=== PATIENT | male | born 1970 | race Caucasian/White ===

== ENCOUNTER → 2019-11-30 08:56 | Outpatient (BNVA) | payer MEDICARE, MEDICAID, SELFPAY | PROVIDERS: Family Provider Family Medicine; PCP Family Medicine; Referring Provider Family Medicine; Visit Provider Orthopaedic Surgery | DX: M67.431 Ganglion, right wrist (principal); R22.31 Localized swelling, mass and lump, right upper limb | CPT/HCPCS: 73110 ==

== ENCOUNTER 2019-12-13 06:13 | Day surgery (SDC) | payer MEDICARE, MEDICAID, SELFPAY ==
[2019-12-11 15:30] VITALS: BMI 32.5
[2019-12-13 06:35] VITALS: BP 109/67; PULSE 80; RESP 18; TEMP 36.9; O2SAT 96
--- NOTE | 2019-12-13 06:45 | W.PM.OPSUD ---
Surgery/Procedure H&P Update DATE OF PROCEDURE: December 13, 2019 DATE H&P PERFORMED: 11/30/19 PREOP DIAGNOSIS: Mass right wrist PLANNED PROCEDURE: Operation Date: 12/13/19 07:45 Proposed Procedures p Excision Mass/Lesion Upper Extremity/Right Wrist 92737 R22.31(Right) - Calin Huynh MD
[2019-12-13] MEDS: sodium chloride 0.9% 1,000 ML 30 ML IV (06:53)
--- NOTE | 2019-12-13 06:53 | ANES.PREANE2 ---
Pre-Anesthetic Assessment Pre-Anesthetic Assessment: Height/Weight: Height 1.75 m Weight 99.79 kg Temp Pulse Resp BP Pulse Ox 98.4 F 80 18 109/67 96 12/13/19 06:35 12/13/19 06:35 12/13/19 06:35 12/13/19 06:35 12/13/19 06:35 Preop Diagnosis: Mass right wrist Proposed Procedure: Operation Date: 12/13/19 07:45 Proposed Procedures p Excision Mass/Lesion Upper Extremity/Right Wrist 97359 R22.31(Right) - Calin Huynh MD Last intake: Intake Last Liquid Date 12/12/19 Last Liquid Time 22:00 Last Solid Date 12/12/19 Last Solid Time 18:00 Social: Social History: Tobacco (quit) and No alcohol Exam: Pre-Anes Outpt Exam: alert, oriented x 3, clear to auscultation bilaterally and regular rate & rhythm Airway: Submandibular: WNL Cervical ROM: WNL MP: 2 Dentition: Other (teeth ok) History/ROS: No significant history except as noted Pulmonary: Pulmonary: None reported CV/HEM: CV/HEM: HTN : : None reported Hepatic: Hepatic: None reported GI: GI: GERD Metabolic: Metabolic: DM and Hyperlipidemia Musc/skel: Musc/skel: Lower Back Pain and OA/DJD Neuropsych: Neuropsych: Neuropathy (right hand) Anesthetic Plan: ASA status: 3 Anesthesia: Anesthesia Evaluation and MAC Risk of > 500 ml blood loss (7ml/kg in children): No Meds/Allergies Current Medications: Current Medications Generic Name Dose Route Start Last Admin Trade Name Freq PRN Reason Stop Dose Admin Sodium Chloride 1,000 mls @ 30 ml s/hr 12/13/19 06:30 12/13/19 06:53 Sodium Chloride 0.9% IV 12/14/19 06:29 30 mls/hr .Q24H NITISH Administration PFSH Anesthesia PFSH: Medical History Diabetes Dyslipidemia HTN (hypertension) Obesity HIRA (obstructive sleep apnea) Surgical History (Updated 12/07/19 @ 13:51 by Miguel A Aponte MD) S/P PTCA (percutaneous transluminal coronary angioplasty) Social History Smoking and tobacco status: former smoker Marital status: Single Data Anesthesia Cardiac Studies: No Data to Display
[2019-12-13 06:58] LABS: Glucose Point of Care 125 mg/dL (70-110)
--- NOTE | 2019-12-13 08:03 | PM.OP ---
Operative Report Date of procedure: December 13, 2019 Pre-op Diagnosis: Mass right wrist Post-op diagnosis: other Post-op Diagnosis: Ganglion cyst right volar wrist Post-op Findings: Same Procedure Done: Excision ganglion cyst right volar wrist Pathology: The ganglion was sent to pathology Surgeon: Calin Huynh Anesthesia: General Estimated blood loss (mL): 5 Tourniquet time (min): 6 Findings: Patient had a 5 mm diameter ganglion cyst just proximal to the proximal flexion crease of the wrist overlying the flexor carpi radialis tendon Condition: stable Disposition: PACU Procedure: The patient was taken to the operating room and given a general anesthesia. He was positioned on the arm table with his right arm exposed prepped and draped in the usual fashion. Tourniquet was inflated 250mmHg a 2 cm transverse lesion was made just proximal to the proximal flexion crease of the right wrist and dissection carried down bluntly through soft tissue were the ganglion was identified. It was circumferentially shelled out with blunt scissors and elevated off the flexor carpi radialis tendon. Hemostasis was provided with bipolar cautery. The tourniquet was deflated. Tendons were infiltrated with 1/2% Marcaine solution. The skin was closed with interrupted 3-0 Prolene suture. Xeroflo gauze 4 x 4's and a volar splint were applied. The patient was extubated taken to recovery in stable condition.
[2019-12-13 08:10] VITALS: BP 128/71; PULSE 70; RESP 20; TEMP 37; O2SAT 96
--- NOTE | 2019-12-13 08:12 | SUR.PHASEI ---
0810 PATIENT TO PACU AT THIS TIME. NO DISTRESS. ORAL AIRWAY IN PLACE. SPO2 94% ON RA.
--- NOTE | 2019-12-13 08:13 | SUR.PHASEI ---
0812 ORAL AIRWAY REMOVED AT THIS TIME. SPO2 96% ON RA.
[2019-12-13 08:15] VITALS: BP 126/72; PULSE 81; RESP 16; O2SAT 97
[2019-12-13 08:20] VITALS: BP 138/71; PULSE 81; RESP 20; TEMP 36.5; O2SAT 95
[2019-12-13 08:23] VITALS: BP 128/70; PULSE 80; RESP 16; TEMP 37.1; O2SAT 99
--- NOTE | 2019-12-13 08:25 | SUR.PHASEI ---
0822 PATIENT TO OPS. TALKATIVE. DENIES PAIN. SPLINT IN PLACE TO RIGHT WRIST.
[2019-12-13 08:37] VITALS: BP 135/79; PULSE 78; RESP 18; O2SAT 97
== END 2019-12-13 08:52 | disposition home or self-care (01) ==
PROVIDERS: PCP Family Medicine; Visit Provider Orthopaedic Surgery
PROC: (CPT 25111; principal; 2019-12-13 07:35)
DX: M67.431 Ganglion, right wrist (principal); Z79.82 Long term (current) use of aspirin; Z87.891 Personal history of nicotine dependence; I10 Essential (primary) hypertension; K21.9 Gastro-esophageal reflux disease without esophagitis; E78.5 Hyperlipidemia, unspecified; E11.40 Type 2 diabetes mellitus with diabetic neuropathy, unspecified; Z79.84 Long term (current) use of oral hypoglycemic drugs; M19.90 Unspecified osteoarthritis, unspecified site; G47.33 Obstructive sleep apnea (adult) (pediatric)
CPT/HCPCS: 25111; 12345; 36416; 82962; 88304; J3010; J3490; J7030

== ENCOUNTER → 2020-09-16 11:01 | Outpatient (BNVA) | payer MEDICARE, MEDICAID, SELFPAY | PROVIDERS: PCP Family Medicine; Visit Provider Psychiatry & Neurology Neurology | DX: G56.02 Carpal tunnel syndrome, left upper limb (principal); M54.2 Cervicalgia; Z87.891 Personal history of nicotine dependence | CPT/HCPCS: 95885; 95886; 95912 ==

== ENCOUNTER 2020-09-18 13:11 | Outpatient (RCR) | payer MEDICARE, MEDICAID, SELFPAY | END 2020-10-04 23:59 | disposition home or self-care (01) | LOC: SPT 13:11 | PROVIDERS: PCP Family Medicine; Referring Provider Family Medicine; Visit Provider Family Medicine | DX: M79.604 Pain in right leg (principal) | CPT/HCPCS: 97110; 97162 ==

== ENCOUNTER 2020-10-05 06:00 | Outpatient (RCR) | payer MEDICARE, MEDICAID, SELFPAY | END 2020-11-04 23:59 | disposition home or self-care (01) | LOC: SPT 06:00 | PROVIDERS: PCP Family Medicine; Referring Provider Family Medicine; Visit Provider Family Medicine | DX: M79.604 Pain in right leg (principal) | CPT/HCPCS: 97110 ==

== ENCOUNTER → 2020-12-26 08:33 | Outpatient (BNVA) | payer MEDICARE, MEDICAID, SELFPAY | PROVIDERS: PCP Family Medicine; Referring Provider Family Medicine; Visit Provider Anesthesiology Pain Medicine | DX: G89.29 Other chronic pain (principal); M51.16 Intervertebral disc disorders with radiculopathy, lumbar region; M54.2 Cervicalgia; M96.1 Postlaminectomy syndrome, not elsewhere classified; M79.605 Pain in left leg; Z98.890 Other specified postprocedural states; Z79.891 Long term (current) use of opiate analgesic | CPT/HCPCS: 99205 ==

== ENCOUNTER → 2021-01-01 13:03 | Outpatient (BNVA) | payer MEDICARE, MEDICAID, SELFPAY | PROVIDERS: PCP Family Medicine; Visit Provider Anesthesiology Pain Medicine | DX: G89.29 Other chronic pain (principal); M51.16 Intervertebral disc disorders with radiculopathy, lumbar region; E11.9 Type 2 diabetes mellitus without complications; M54.2 Cervicalgia | CPT/HCPCS: 64483; 64484; J1030; J3490 ==

== ENCOUNTER → 2021-01-16 13:08 | Outpatient (BNVA) | payer MEDICARE, MEDICAID, SELFPAY | PROVIDERS: PCP Family Medicine; Visit Provider Anesthesiology Pain Medicine | DX: G89.29 Other chronic pain (principal); M51.16 Intervertebral disc disorders with radiculopathy, lumbar region; M96.1 Postlaminectomy syndrome, not elsewhere classified; M54.2 Cervicalgia; M79.605 Pain in left leg; Z98.890 Other specified postprocedural states; Z79.891 Long term (current) use of opiate analgesic | CPT/HCPCS: 99214 ==

== ENCOUNTER → 2021-02-03 08:52 | Outpatient (BNVA) | payer MEDICARE, MEDICAID, SELFPAY | PROVIDERS: PCP Family Medicine; Visit Provider Anesthesiology Pain Medicine | DX: G89.29 Other chronic pain (principal); M51.16 Intervertebral disc disorders with radiculopathy, lumbar region; M96.1 Postlaminectomy syndrome, not elsewhere classified; M54.2 Cervicalgia; M79.605 Pain in left leg; M16.11 Unilateral primary osteoarthritis, right hip; Z98.890 Other specified postprocedural states; Z79.891 Long term (current) use of opiate analgesic | CPT/HCPCS: 99214 ==

== ENCOUNTER → 2021-02-26 10:34 | Outpatient (BNVA) | payer MEDICARE, MEDICAID, SELFPAY | PROVIDERS: PCP Family Medicine; Visit Provider Anesthesiology Pain Medicine | DX: G89.29 Other chronic pain (principal); M51.16 Intervertebral disc disorders with radiculopathy, lumbar region; M96.1 Postlaminectomy syndrome, not elsewhere classified; M54.2 Cervicalgia; M79.605 Pain in left leg; M16.11 Unilateral primary osteoarthritis, right hip; Z98.890 Other specified postprocedural states | CPT/HCPCS: 99214 ==

== ENCOUNTER → 2021-03-07 11:53 | Outpatient (BNVA) | payer MEDICARE, MEDICAID, SELFPAY | PROVIDERS: PCP Family Medicine; Visit Provider Anesthesiology Pain Medicine | DX: Z01.812 Encounter for preprocedural laboratory examination (principal); G89.29 Other chronic pain; E11.9 Type 2 diabetes mellitus without complications; M16.11 Unilateral primary osteoarthritis, right hip; M54.2 Cervicalgia; Z79.891 Long term (current) use of opiate analgesic | CPT/HCPCS: 20610; 36416; 77002; 82962; J1030; J3490 ==

== ENCOUNTER → 2021-03-20 15:24 | Outpatient (BNVA) | payer MEDICARE, MEDICAID, SELFPAY | PROVIDERS: PCP Family Medicine; Referring Provider Anesthesiology Pain Medicine; Visit Provider Specialist | DX: G62.89 Other specified polyneuropathies (principal); M96.1 Postlaminectomy syndrome, not elsewhere classified | CPT/HCPCS: 95909 ==

== ENCOUNTER → 2021-03-21 09:51 | Outpatient (BNVA) | payer MEDICARE, MEDICAID, SELFPAY | PROVIDERS: PCP Family Medicine; Visit Provider Anesthesiology Pain Medicine | DX: G89.29 Other chronic pain (principal); M51.16 Intervertebral disc disorders with radiculopathy, lumbar region; M96.1 Postlaminectomy syndrome, not elsewhere classified; M54.2 Cervicalgia; M16.11 Unilateral primary osteoarthritis, right hip; M79.605 Pain in left leg; Z98.890 Other specified postprocedural states; Z79.891 Long term (current) use of opiate analgesic | CPT/HCPCS: 99214 ==

== ENCOUNTER → 2021-04-01 09:55 | Outpatient (BNVA) | payer MEDICARE, MEDICAID, SELFPAY | PROVIDERS: PCP Family Medicine; Visit Provider Anesthesiology Pain Medicine | DX: G89.29 Other chronic pain (principal); M51.16 Intervertebral disc disorders with radiculopathy, lumbar region; M96.1 Postlaminectomy syndrome, not elsewhere classified; M54.2 Cervicalgia; M79.605 Pain in left leg; M16.11 Unilateral primary osteoarthritis, right hip; Z98.890 Other specified postprocedural states; Z79.891 Long term (current) use of opiate analgesic; Z87.891 Personal history of nicotine dependence | CPT/HCPCS: 99214 ==

== ENCOUNTER → 2021-05-12 10:30 | Outpatient (BNVA) | payer MEDICARE, MEDICAID, SELFPAY | PROVIDERS: PCP Family Medicine; Visit Provider Anesthesiology Pain Medicine | DX: G89.29 Other chronic pain (principal); M51.16 Intervertebral disc disorders with radiculopathy, lumbar region; M54.2 Cervicalgia; M96.1 Postlaminectomy syndrome, not elsewhere classified; M16.11 Unilateral primary osteoarthritis, right hip; Z98.890 Other specified postprocedural states; Z79.891 Long term (current) use of opiate analgesic | CPT/HCPCS: 99214 ==

== ENCOUNTER → 2021-06-10 09:52 | Outpatient (BNVA) | payer MEDICARE, MEDICAID, SELFPAY | PROVIDERS: PCP Family Medicine; Visit Provider Anesthesiology Pain Medicine | DX: G89.29 Other chronic pain (principal); M51.16 Intervertebral disc disorders with radiculopathy, lumbar region; M96.1 Postlaminectomy syndrome, not elsewhere classified; M54.2 Cervicalgia; M16.11 Unilateral primary osteoarthritis, right hip; M79.605 Pain in left leg; Z98.890 Other specified postprocedural states; Z79.891 Long term (current) use of opiate analgesic | CPT/HCPCS: 99214 ==

== ENCOUNTER 2021-06-25 12:59 | Outpatient (CLI) | payer MEDICARE, MEDICAID, SELFPAY ==
[2021-06-25 13:29] VITALS: BP 136/70; PULSE 85; RESP 18; TEMP 36.6; O2SAT 99; BMI 33.0
[2021-06-25 13:46] VITALS: BP 126/75; PULSE 82; RESP 16; O2SAT 98
== END 2021-06-25 13:00 | disposition home or self-care (01) ==
LOC: OPS 13:02
PROVIDERS: PCP Family Medicine; Visit Provider Nurse Practitioner Family
DX: U07.1 COVID-19 (principal)
CPT/HCPCS: 96365

== ENCOUNTER → 2021-07-17 10:28 | Outpatient (BNVA) | payer MEDICARE, MEDICAID, SELFPAY | PROVIDERS: PCP Family Medicine; Visit Provider Anesthesiology Pain Medicine | DX: G89.29 Other chronic pain (principal); M51.16 Intervertebral disc disorders with radiculopathy, lumbar region; M96.1 Postlaminectomy syndrome, not elsewhere classified; M54.2 Cervicalgia; M16.11 Unilateral primary osteoarthritis, right hip; Z98.890 Other specified postprocedural states; M79.605 Pain in left leg; Z79.891 Long term (current) use of opiate analgesic; Z87.891 Personal history of nicotine dependence | CPT/HCPCS: 99214 ==

== ENCOUNTER → 2021-08-12 09:40 | Outpatient (BNVA) | payer MEDICARE, MEDICAID, SELFPAY | PROVIDERS: PCP Family Medicine; Visit Provider Anesthesiology Pain Medicine | DX: G89.29 Other chronic pain (principal); M51.16 Intervertebral disc disorders with radiculopathy, lumbar region; M54.2 Cervicalgia; M16.11 Unilateral primary osteoarthritis, right hip; M96.1 Postlaminectomy syndrome, not elsewhere classified; M79.605 Pain in left leg; E11.9 Type 2 diabetes mellitus without complications; Z98.890 Other specified postprocedural states; Z79.891 Long term (current) use of opiate analgesic; Z87.891 Personal history of nicotine dependence | CPT/HCPCS: 99214 ==

== ENCOUNTER → 2021-11-11 09:10 | Outpatient (BNVA) | payer MEDICARE, MEDICAID, SELFPAY | PROVIDERS: PCP Family Medicine; Visit Provider Anesthesiology Pain Medicine | DX: G89.29 Other chronic pain (principal); M51.16 Intervertebral disc disorders with radiculopathy, lumbar region; M96.1 Postlaminectomy syndrome, not elsewhere classified; M54.2 Cervicalgia; M16.11 Unilateral primary osteoarthritis, right hip; M79.605 Pain in left leg; Z98.890 Other specified postprocedural states; Z79.891 Long term (current) use of opiate analgesic; Z87.891 Personal history of nicotine dependence | CPT/HCPCS: 99214 ==

== ENCOUNTER → 2021-11-24 13:41 | Outpatient (BNVA) | payer MEDICARE, MEDICAID, SELFPAY | PROVIDERS: PCP Family Medicine; Visit Provider Anesthesiology Pain Medicine | DX: G89.29 Other chronic pain (principal); M54.2 Cervicalgia; M54.50 Low back pain, unspecified; E11.9 Type 2 diabetes mellitus without complications; Z79.891 Long term (current) use of opiate analgesic; Z87.891 Personal history of nicotine dependence; Z79.4 Long term (current) use of insulin; Z79.84 Long term (current) use of oral hypoglycemic drugs; M53.3 Sacrococcygeal disorders, not elsewhere classified | CPT/HCPCS: 36416; 82962; G0260; J1030; J3490 ==

== ENCOUNTER 2021-12-01 06:00 | Outpatient (RCR) | payer MEDICARE, MEDICAID, SELFPAY | END 2021-12-04 23:59 | disposition home or self-care (01) | LOC: SPT 06:00 | PROVIDERS: PCP Family Medicine; Referring Provider Nurse Practitioner Acute Care; Visit Provider Nurse Practitioner Acute Care | DX: M79.604 Pain in right leg (principal) | CPT/HCPCS: 97110; 97162 ==

== ENCOUNTER 2021-12-05 06:00 | Outpatient (RCR) | payer MEDICARE, MEDICAID, SELFPAY | END 2022-01-04 23:59 | disposition home or self-care (01) | LOC: SPT 06:00 | PROVIDERS: PCP Family Medicine; Referring Provider Nurse Practitioner Acute Care; Visit Provider Nurse Practitioner Acute Care | DX: M53.3 Sacrococcygeal disorders, not elsewhere classified (principal); M51.37 Other intervertebral disc degeneration, lumbosacral region | CPT/HCPCS: 97110 ==

== ENCOUNTER → 2021-12-09 13:46 | Outpatient (BNVA) | payer MEDICARE, MEDICAID, SELFPAY | PROVIDERS: PCP Family Medicine; Visit Provider Internal Medicine | DX: I10 Essential (primary) hypertension (principal); E78.5 Hyperlipidemia, unspecified; Z98.61 Coronary angioplasty status; R06.02 Shortness of breath; R53.83 Other fatigue; Z87.891 Personal history of nicotine dependence; Z79.84 Long term (current) use of oral hypoglycemic drugs; E11.9 Type 2 diabetes mellitus without complications; Z79.4 Long term (current) use of insulin | CPT/HCPCS: 99214 ==

== ENCOUNTER → 2021-12-15 10:45 | Outpatient (BNVA) | payer MEDICARE, MEDICAID, SELFPAY | PROVIDERS: PCP Family Medicine; Visit Provider Anesthesiology Pain Medicine | DX: G89.29 Other chronic pain (principal); M51.16 Intervertebral disc disorders with radiculopathy, lumbar region; M96.1 Postlaminectomy syndrome, not elsewhere classified; M54.2 Cervicalgia; M16.11 Unilateral primary osteoarthritis, right hip; M79.605 Pain in left leg; Z98.890 Other specified postprocedural states; Z79.891 Long term (current) use of opiate analgesic | CPT/HCPCS: 99214 ==

== ENCOUNTER 2021-12-19 15:13 | Emergency (ER) | payer MEDICARE, MEDICAID, SELFPAY ==
--- NOTE | 2021-12-19 16:10 | ECG_ITS ---
[facility] Test Date: 2021-12-19 Pat Name: Farshad Cruz Department: Room: Gender: Male [employer]: : 1970 Requested By: Cesar Dior Order Number: [id number] Eduardo MD: William Wilks M.D. Measurements Intervals [place] Rate: 73 P: 59 GA: 188 QRS: 28 QRSD: 76 T: 19 QT: 336 QTc: 371 Interpretive Statements SINUS RHYTHM POSSIBLE LEFT ATRIAL ENLARGEMENT [-0.1mV P-WAVE IN V1/V2] Compared to ECG 12/07/2017 06:23:12 No significant changes Electronically Signed On 12-22-2021 17:56:48 CDT by William Wilks M.D. [id number]
[2021-12-19 16:12] VITALS: BP 132/83; PULSE 74; RESP 16; TEMP 36.6; O2SAT 99
--- NOTE | 2021-12-19 23:14 | XRR_ITS ---
PROCEDURE INFORMATION: Exam: XR Chest Exam date and time: 12/19/2021 11:27 PM Age: 51 years old Clinical indication: Pain; Angina pectoris; Additional info: Cp TECHNIQUE: Imaging protocol: Radiologic exam of the chest. Views: 1 view. COMPARISON: CR Chest 1 [place] [id number] 12/06/2017 5:32 AM FINDINGS: Lungs: Unremarkable. No consolidation. Pleural spaces: Unremarkable. No pleural effusion. No pneumothorax. Heart/Mediastinum: Unremarkable. No cardiomegaly. Bones/joints: Unremarkable. XR/XR chest 1V portable [id number] IMPRESSION: No acute findings.
--- NOTE | 2021-12-19 23:15 | ECG_ITS ---
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 Measurements Intervals [place] Rate: 77 P: 53 NM: 181 QRS: 22 QRSD: 84 T: 8 QT: 352 QTc: 400 Interpretive Statements SINUS RHYTHM POSSIBLE LEFT ATRIAL ENLARGEMENT [-0.1mV P-WAVE IN V1/V2] Compared to ECG 12/19/2021 16:10:40 No significant changes Electronically Signed On 12-22-2021 17:55:06 CDT by William Wilks M.D. [id number]
--- NOTE | 2021-12-19 23:16 | ED_ITS ---
Documented by User: JEFFERY Rajput 12/21/21 00:52 HPI - Chest Pain General: Chief Complaint: Chest Pain Stated Complaint: Throat pain Time Seen by Provider: 12/19/21 22:58 History of Present Illness: Patient is a 51-year-old male comes to the ED with anterior neck pain. Patient has a history of a cardiac stent. He says the neck pain he is feeling right now is similar to the neck pain he had with his past heart attack when he needed to place a cardiac stent. He describes it as a tightness in his neck and throat. Denies any lip or tongue swelling or any trouble breathing. Symptoms started while at rest yesterday and have been constant. Denies any injury or trauma to cause neck pain. Denies fever, chills, shortness of breath, abdominal pain, nausea/vomiting, bladder or bowel symptoms. Patient takes 325 mg aspirin daily at night, but has not taken his dose of aspirin today. Associated symptoms: Deny abdominal pain, dyspnea, fever(s), nausea, palpitations or vomiting Review of Systems Const: Denies: fever(s), chills or fatigue Eyes: Denies: change in vision or eye discomfort ENMT: Denies: throat pain, odynophagia, nasal discharge or nasal congestion Card: Reports: chest pain (pain radiating into anterior neck); Denies: palpitations, edema, swelling of feet/ankles, dyspnea on exertion or orthopnea Resp: Denies: dyspnea, productive cough or non-productive cough GI: Denies: abdominal pain, nausea, vomiting, diarrhea, constipation or hematochezia : Denies: flank pain, difficulty urinating, dysuria or hematuria Musc: Denies: neck pain, back pain or extremity swelling Skin/Breast: Denies: rash or new lesions Neuro: Denies: headache(s), numbness in extremities or weakness in extremities PFS ED PFSH: Medical History Diabetes Dyslipidemia HTN (hypertension) Obesity HIRA (obstructive sleep apnea) Surgical History Previous back surgery total of 6 back surgeries S/P PTCA (percutaneous transluminal coronary angioplasty) Social History Smoking and tobacco status: former smoker Second hand smoke exposure: Yes Alcohol intake: never Marital status: Single History of recent travel: No Physical Exam Const: COMMON NORMALS: no acute distress, patient oriented x3 and alert GENERAL APPEARANCE: cooperative and comfortable HENMT: COMMON NORMALS: normocephalic HEAD & SCALP: normocephalic MOUTH: Normal oral and palatal mucosa present THROAT: posterior oropharynx normal and uvula midline Neck/C-Spine: COMMON NORMALS: supple GENERAL: Yes normal visual inspection Resp: COMMON NORMALS: normal respiratory effort, No retractions, No use of accessory muscles and clear to auscultation bilaterally AUSCULTATION: clear to auscultation bilaterally Cardio: COMMON NORMALS: regular rate, regular rhythm, S1 normal heart sound present, S2 normal heart sound present, No gallops present (Cardio), No clicks present (Cardio), No murmurs present (Cardio) and Peripheral pulses 2+ throughout RATE: regular rate RHYTHM: regular rhythm HEART SOUNDS: S1 normal heart sound present and S2 normal heart sound present PERIPHERAL PULSES: Peripheral pulses 2+ throughout GI: COMMON NORMALS: Normal to inspection, nondistended, normoactive bowel sounds present, Soft to palpation, non-tender and no masses PALPATION: Yes Soft to palpation : COMMON NORMALS: Yes no CVA tenderness BLADDER/KIDNEY EXAM: Yes no CVA tenderness Back/Pelvis: COMMON NORMALS: no CVA tenderness Extremity: COMMON NORMALS: normal to inspection Neuro: COMMON NORMALS: patient oriented x3 and moves all extremities SENSORIUM/ORIENTATION: Yes alert Skin: GENERAL SKIN EXAM: dry skin Course Vital Signs: Vital signs: Vital Signs Temperature 97.8 F 12/19/21 16:12 Pulse Rate 71 12/20/21 02:38 Respiratory Rate 17 12/19/21 23:45 Blood Pressure 155/90 12/20/21 02:38 Pulse Oximetry 95 12/20/21 02:38 MDM - Chest Pain Medical Decision Making Patient is a 51-year-old male comes to the ED with anterior neck pain. Patient has a history of a cardiac stent. He says the neck pain he is feeling right now is similar to the neck pain he had with his past heart attack when he needed to place a cardiac stent. He describes it as a tightness in his neck and throat. Denies any lip or tongue swelling or any trouble breathing. Symptoms started while at rest yesterday and have been constant. Denies any injury or trauma to cause neck pain. Vitals stable. Patient appears nontoxic in no acute distress or pain. Labs are unremarkable. Troponins negative. EKG showed no acute findi ngs. Chest x-ray showed no acute findings. Patient was given dose of steroids and GI cocktail and symptoms improved. Patient was diagnosed with atypical chest pain and was stable for discharge home. Told to follow-up with his PCP in the next week for reevaluation. Strict return ED precautions given. Patient understood and agreed with plan. Lab Data I reviewed the patient's lab results. : 12/19/21 23:24 12/19/21 23:24 Radiology Impressions Chest X-Ray 12/19/21: IMPRESSION: No acute findings. Laboratory Results WBC 6.4 10^3/uL (4.0-10.0) 12/19/21 23: RBC 5.31 10^6/uL (4.1-5.3) H 12/19/21 23: Hgb 15.6 g/dL (11.7-16.6) 12/19/21 23: Hct 45.8 % (42.0-52.0) 12/19/21 23: MCV 86.3 fl (80-94) 12/19/21 23: MCH 29.4 pg (28.0-34.0) 12/19/21 23: MCHC 34.1 g/dL (30.0-36.0) 12/19/21 23: RDW 13.2 % (12.1-15.1) 12/19/21: Plt Count 189 10^3/cmm (130-400) 12/19/21 23:24 MPV 11.0 fL (7.4-10.4) H 12/19/21 23: Neut % (Auto) 66.9 % 12/19/21 23: Lymph % (Auto) 21.6 % 12/19/21 23: [place] % (Auto) 7.4 % 12/19/21 23: Eos % (Auto) 3.1 % 12/19/21: Baso % (Auto) 0.8 % 12/19/21: Neut # (Auto) 4.27 10^3/uL (1.8-7.7) 12/19/21 23:24 Lymph # (Auto) 1.4 10^3/uL (0.8-4.8) 12/19/21 23:24 [place] # (Auto) 0.5 10^3/uL (0.2-0.9) 12/19/21 23:24 Eos # (Auto) 0.2 10^3/uL (0.0-0.8) 12/19/21 23:24 Baso # (Auto) 0.1 10^3/uL (0.0-0.1) 12/19/21 23:24 Nucleated RBC % (auto) 0 % 12/19/21 23:24 Nucleated RBCs # 0.0 /100WBC 12/19/21 23:24 Sodium 139 mmol/L (136-145) 12/19/21 23:24 Potassium 4.0 mmol/L (3.5-5.1) 12/19/21 23:24 Chloride 99 mmol/L (98-107) 12/19/21 23:24 Carbon Dioxide 28 mmol/L (22-29) 12/19/21 23:24 Anion Gap 16.0 (5-19) 12/19/21 23:24 BUN 12 mg/dL (6-20) 12/19/21 23:24 Creatinine 0.6 mg/dL (0.7-1.2) L 12/19/21 23:24 GFR Calculation 142.6 mL/min (90-130) H 12/19/21 23:24 Glucose 104 mg/dL (65-115) 12/19/21 23:24 Calculated Osmolality 288 mOsm/kg (285-295) 12/19/21 23:24 Calcium 9.8 mg/dL (8.5-10.5) 12/19/21 23:24 Total Bilirubin 0.5 mg/dL (0.15-1.2) 12/19/21 23:24 AST 28 U/L (0-40) 12/19/21 23:24 ALT 60 U/L (0-41) H 12/19/21 23:24 Alkaline Phosphatase 70 IU/L (40-130) 12/19/21 23:24 Troponin T Baseline 10 ng/L (0-15) 12/19/21 23:24 Troponin T 120 Minute 11.31 ng/L (0-15) 12/20/21 01:14 Delta Troponin T 1.31 ABS# (0-10) 12/20/21 01:14 NT-Pro-B Natriuret Pep 11 pg/mL (0-125) 12/19/21 23:24 Total Protein 7.8 g/dL (6.6-8.7) 12/19/21 23:24 Albumin 5.0 g/dL (3.5-5.2) 12/19/21 23:24 Globulin 2.8 g/dL (1.3-4.6) 12/19/21 23:24 EKG Data EKG 1: Computer generated interpretation: [address] [place] [address] Electrocardiograph Report Draft Patient: Farshad Cruz Unit #: [id number] : 1970 Age/Sex: 51 / M ADM Date: 12/19/21 Loc: ER Room/Bed: Attending Dr: Ordering Provider/Ordering MD: Cesar Dior DO Date of Service: 12/19/21 Procedure(s): ECG 12 lead EKG Accession Number(s): [id number] Report Number: [id number] ? [facility] ? Test Date:? ? 2021-12-19 Pat Name: ? ? Farshad Cruz ? Department: ? Patient ID: ? [id number] ? Room: ? Gender: ? ? ? Male ? 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 Requested By: Cesar Dior Order Number: [id number]? Reading MD: ? Measurements Intervals? Beatrice? Rate: ? 73 ? P:? 59 TN: ? 188? QRS:? 28 QRSD: ? 76 ? T:? 19 QT: ? 336? QTc:? 371? Interpretive Statements SINUS RHYTHM POSSIBLE LEFT ATRIAL ENLARGEMENT? [-0.1mV P-WAVE IN V1/V2] No previous ECG available for comparison [email or web address] [id number] Dictated By: INTERFACE,USER Signed By: Signed Date/Time: DD/ 1610 EKG 2: Computer generated interpretation: [employer] [address] [place] [address] Electrocardiograph Report Draft Patient: Farshad Cruz Unit #: [id number] : 1970 Age/Sex: 51 / M ADM Date: 12/19/21 Loc: ER Room/Bed: Attending Dr: Ordering Provider/Ordering MD: Felice Pond Date of Service: 12/19/21 Procedure(s): ECG 12 lead EKG Accession Number(s): [id number] Report Number: [id number] ? [facility] ? Test Date:? ? 2021-12-19 Pat Name: ? ? aFrshad Cruz ? Department: ? Patient ID: ? [id number] ? Room: ? Gender: ? ? ? Male ? 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 Requested By: Felice Pond Order Number: [id number]? Reading MD: ? Measurements Intervals? Beatrice? Rate: ? 77 ? P:? 53 TN: ? 181? QRS:? 22 QRSD: ? 84 ? T:? 8 QT: ? 352? QTc:? 400? Interpretive Statements SINUS RHYTHM POSSIBLE LEFT ATRIAL ENLARGEMENT? [-0.1mV P-WAVE IN V1/V2] INTERPRETATION BASED ON A DEFAULT AGE OF 40 YEARS No previous ECG available for comparison [email or web address] Dictated By: INTERFACE,USER Signed By: Signed Date/Time DD/ 08 Discharge Plan Discharge Patient Disposition: Home Clinical Impression: Atypical chest pain Condition: Stable Prescriptions: No Action Ozempic 1 mg/dose (2 mg/1.5 mL) pen injector See Rx Instructions .ROUTE .COMPLEX 0RF Rx Instructions: 2 mg subcutaneously WEEKLY Tradjenta 5 mg tablet 5 mg PO DAILY 0RF metoprolol succinate 50 mg tablet extended release 24 hr 25 mg PO DAILY 0RF fluticasone propionate [Flonase Allergy Relief] 50 mcg/actuation spra y,suspension 1 spray INTRANASAL DAILY 0RF Rx Instructions: administer into each nostril esomeprazole magnesium [Nexium] 40 mg capsule,delayed release(DR/EC) 40 mg PO BID 0RF cinnamon bark [Cinnamon] 500 mg capsule 1,000 mg PO BID 0RF metformin 1,000 mg tablet 1,000 mg PO BID 0RF pregabalin [Lyrica] 75 mg capsule 75 mg PO BID 0RF nortriptyline 10 mg capsule 20 mg PO DAILY 0RF lisinopril-hydrochlorothiazide 20-25 mg tablet 1 tab PO DAILY 0RF aspirin 325 mg tablet 325 mg PO DAILY 0RF Farxiga 10 mg tablet 10 mg PO DAILY 0RF tizanidine 2 mg capsule 4 mg PO BID PRN (Reason: Pain) 0RF cyanocobalamin (vitamin B-12) 1,000 mcg capsule 1,000 mcg PO DAILY 0RF B-complex with vitamin C [Super B Complex-Vitamin C] Tablet 1 tab PO DAILY 0RF ascorbic acid (vitamin C) 1,000 mg tablet 500 mg PO DAILY 0RF ICaps AREDS2 (copper citrate) 250 mg-200 unit -12.5 mg-1 mg tablet,chewable 1 tab PO DAILY 0RF ibuprofen 200 mg tablet 200 mg PO .4 tabs day PRN (Reason: pain) 0RF Toujeo SoloStar U-300 Insulin 300 unit/mL (1.5 mL) insulin pen 42 unit SUBCUT DAILY 0RF Toujeo SoloStar U-300 Insulin 300 unit/mL (1.5 mL) insulin pen 38 unit SUBCUT DAILY 0RF melatonin 10 mg capsule 10 mg PO DAILY 0RF hydrocodone-acetaminophen 5-325 mg tablet 1 tab PO Q8H MDD 3 PRN (Reason: pain) 30 Days Qty: 90 0RF Rx Instructions: may fill 30 days after last refill. atorvastatin 80 mg tablet 80 mg PO DAILY Qty: 90 3RF Discharge Orders: Discharge ED (Routine); Ordered 12/20/21 Ordered By: Felice Pond Referrals: Cyrus Covarrubias MD [Primary Care Provider] - Discharge Diet: Regular Discharge Activity: Increase activity as tolerated Activity Restrictions/Additional Instructions: Follow-up with medical provider as directed in the next 5 to 7 days for reevaluation. Continue taking home medications as previously prescribed.. Return to the ER or your medical provider if condition worsens. Please read and understand discharge instructions. Thank you for choosing [facility] for your healthcare needs today. Please realize this is an emergency room and that we are providing you with a medical screening exam and this may not be complete and all inclusive of all the testing and or work up that you may need to determine your ailment or severity of your illness. It is very important that you follow up as instructed or that you return to the Emergency Department should you have concerns or if your condition changes or worsens in any way. Coding Level of Care Code ED Scientific Photographer for Chg Fwd Exam Comprehensive Documented by User: Kwesi Aguilera DO 12/21/21 02:10 HPI - Chest Pain General: Chief Complaint: Chest Pain Stated Complaint: Throat pain Time Seen by Provider: 12/19/21 22:58 PFS ED PFSH: Medical History Diabetes Dyslipidemia HTN (hypertension) Obesity HIRA (obstructive sleep apnea) Surgical History Previous back surgery total of 6 back surgeries S/P PTCA (percutaneous transluminal coronary angioplasty) Social History Smoking and tobacco status: former smoker Second hand smoke exposure: Yes Alcohol intake: never Marital status: Single History of recent travel: No Course Vital Signs: Vital signs: Vital Signs Temperature 97.8 F 12/19/21 16:12 Pulse Rate 71 12/20/21 02:38 Respiratory Rate 17 12/19/21 23:45 Blood Pressure 155/90 12/20/21 02:38 Pulse Oximetry 95 12/20/21 02:38 MDM - Chest Pain Medical Decision Making Patient is a 51-year-old male comes to the ED with anterior neck pain. Patient has a history of a cardiac stent. He says the neck pain he is feeling right now is similar to the neck pain he had with his past heart attack when he needed to place a cardiac stent. He describes it as a tightness in his neck and throat. Denies any lip or tongue swelling or any trouble breathing. Symptoms started while at rest yesterday and have been constant. Denies any injury or trauma to cause neck pain. Vitals stable. Patient appears nontoxic in no acute distress or pain. Labs are unremarkable. Troponins negative. EKG showed no acute findings. Chest x-ray showed no acute findings. Patient was given dose of steroids and GI cocktail and symptoms improved. Patient was diagnosed with atypical chest pain and was stable for discharge home. Told to follow-up with his PCP in the next week for reevaluation. Strict return ED precautions given. Patient understood and agreed with plan. This patient was originally seen by Mr. Salty PA-C.? I agree with his history, evaluation, and treatment. Lab Data : 12/19/21 23:24 12/19/21 23:24 Radiology Impressions Chest X-Ray 12/19/21 23: IMPRESSION: No acute findings. Laboratory Results WBC 6.4 10^3/uL (4.0-10.0) 12/19/21 23: RBC 5.31 10^6/uL (4.1-5.3) H 12/19/21 23:24 Hgb 15.6 g/dL (11.7-16.6) 12/19/21 23:24 Hct 45.8 % (42.0-52.0) 12/19/21 23: MCV 86.3 fl (80-94) 12/19/21 23:24 MCH 29.4 pg (28.0-34.0) 12/19/21 23: MCHC 34.1 g/dL (30.0-36.0) 12/19/21 23: RDW 13.2 % (12.1-15.1) 12/19/21 23: Plt Count 189 10^3/cmm (130-400) 12/19/21 23:24 MPV 11.0 fL (7.4-10.4) H 12/19/21 23:24 Neut % (Auto) 66.9 % 12/19/21 23: Lymph % (Auto) 21.6 % 12/19/21 23:24 [place] % (Auto) 7.4 % 12/19/21 23:24 Eos % (Auto) 3.1 % 12/19/21 23: Baso % (Auto) 0.8 % 07/15/22 23:24 Neut # (Auto) 4.27 10^3/uL (1.8-7.7) 12/19/21 23:24 Lymph # (Auto) 1.4 10^3/uL (0.8-4.8) 12/19/21 23:24 [place] # (Auto) 0.5 10^3/uL (0.2-0.9) 12/19/21 23:24 Eos # (Auto) 0.2 10^3/uL (0.0-0.8) 12/19/21 23:24 Baso # (Auto) 0.1 10^3/uL (0.0-0.1) 12/19/21 23:24 Nucleated RBC % (auto) 0 % 12/19/21 23: Nucleated RBCs # 0.0 /100WBC 12/19/21 23:24 Sodium 139 mmol/L (136-145) 12/19/21 23:24 Potassium 4.0 mmol/L (3.5-5.1) 12/19/21 23:24 Chloride 99 mmol/L (98-107) 12/19/21 23:24 Carbon Dioxide 28 mmol/L (22-29) 12/19/21 23:24 Anion Gap 16.0 (5-19) 12/19/21 23:24 BUN 12 mg/dL (6-20) 12/19/21 23:24 Creatinine 0.6 mg/dL (0.7-1.2) L 12/19/21 23:24 GFR Calculation 142.6 mL/min (90-130) H 12/19/21 23:24 Glucose 104 mg/dL (65-115) 12/19/21 23:24 Calculated Osmolality 288 mOsm/kg (285-295) 12/19/21 23:24 Calcium 9.8 mg/dL (8.5-10.5) 12/19/21 23:24 Total Bilirubin 0.5 mg/dL (0.15-1.2) 12/19/21 23:24 AST 28 U/L (0-40) 12/19/21 23:24 ALT 60 U/L (0-41) H 12/19/21 23:24 Alkaline Phosphatase 70 IU/L (40-130) 12/19/21 23:24 Troponin T Baseline 10 ng/L (0-15) 12/19/21 23:24 Troponin T 120 Minute 11.31 ng/L (0-15) 12/20/21 01:14 Delta Troponin T 1.31 ABS# (0-10) 12/20/21 01:14 NT-Pro-B Natriuret Pep 11 pg/mL (0-125) 12/19/21 23:24 Total Protein 7.8 g/dL (6.6-8.7) 12/19/21 23:24 Albumin 5.0 g/dL (3.5-5.2) 12/19/21 23:24 Globulin 2.8 g/dL (1.3-4.6) 12/19/21 23:24 Discharge Plan Discharge Patient Disposition: Home Clinical Impression: Atypical chest pain Condition: Stable Prescriptions: No Action Ozempic 1 mg/dose (2 mg/1.5 mL) pen injector See Rx Instructions .ROUTE .COMPLEX 0RF Rx Instructions: 2 mg subcutaneously WEEKLY Tradjenta 5 mg tablet 5 mg PO DAILY 0RF metoprolol succinate 50 mg tablet extended release 24 hr 25 mg PO DAILY 0RF fluticasone propionate [Flonase Allergy Relief] 50 mcg/actuation spray,suspension 1 spray INTRANASAL DAILY 0RF Rx Instructions: administer into each nostril esomeprazole magnesium [Nexium] 40 mg capsule,delayed release(DR/EC) 40 mg PO BID 0RF cinnamon bark [Cinnamon] 500 mg capsule 1,000 mg PO BID 0RF metformin 1,000 mg tablet 1,000 mg PO BID 0RF pregabalin [Lyrica] 75 mg capsule 75 mg PO BID 0RF nortriptyline 10 mg capsule 20 mg PO DAILY 0RF lisinopril-hydrochlorothiazide 20-25 mg tablet 1 tab PO DAILY 0RF aspirin 325 mg tablet 325 mg PO DAILY 0RF Farxiga 10 mg tablet 10 mg PO DAILY 0RF tizanidine 2 mg capsule 4 mg PO BID PRN (Reason: Pain) 0RF cyanocobalamin (vitamin B-12) 1,000 mcg capsule 1,000 mcg PO DAILY 0RF B-complex with vitamin C [Super B Complex-Vitamin C] Tablet 1 tab PO DAILY 0RF ascorbic acid (vitamin C) 1,000 mg tablet 500 mg PO DAILY 0RF ICaps AREDS2 (copper citrate) 250 mg-200 unit -12.5 mg-1 mg tablet,chewable 1 tab PO DAILY 0RF ibuprofen 200 mg tablet 200 mg PO .4 tabs day PRN (Reason: pain) 0RF Toujeo SoloStar U-300 Insulin 300 unit/mL (1.5 mL) insulin pen 42 unit SUBCUT DAILY 0RF Toujeo SoloStar U-300 Insulin 300 unit/mL (1.5 mL) insulin pen 38 unit SUBCUT DAILY 0RF melatonin 10 mg capsule 10 mg PO DAILY 0RF hydrocodone-acetaminophen 5-325 mg tablet 1 tab PO Q8H MDD 3 PRN (Reason: pain) 30 Days Qty: 90 0RF Rx Instructions: may fill 30 days after last refill. atorvastatin 80 mg tablet 80 mg PO DAILY Qty: 90 3RF Discharge Orders: Discharge ED (Routine); Ordered 12/20/21 Ordered By: Felice Pond Referrals: Cyrus Covarrubias MD [Primary Care Provider] - Discharge Diet: Regular Discharge Activity: Increase activity as tolerated Activity Restrictions/Additional Instructions: Follow-up with medical provider as directed in the next 5 to 7 days for reevaluation. Continue taking home medications as previously prescribed.. Return to the ER or your medical provider if condition worsens. Please read and understand discharge instructions. Thank you for choosing [facility] for your healthcare needs today. Edin aldrich realize this is an emergency room and that we are providing you with a medical screening exam and this may not be complete and all inclusive of all the testing and or work up that you may need to determine your ailment or severity of your illness. It is very important that you follow up as instructed or that you return to the Emergency Department should you have concerns or if your condition changes or worsens in any way. Coding Level of Care Code ED Scientific Photographer for Rupa Fwjesse Exam Comprehensive
[2021-12-19 23:31] LABS: Basophils # 0.1 10^3/uL (0.0-0.1); Basophils % 0.8 %; Eosinophils # 0.2 10^3/uL (0.0-0.8); Eosinophils % 3.1 %; Hematocrit 45.8 % (42.0-52.0); Hemoglobin 15.6 g/dL (11.7-16.6); Lymphocytes # 1.4 10^3/uL (0.8-4.8); Lymphocytes % 21.6 %; Mean Corpuscular HGB Conc 34.1 g/dL (30.0-36.0); Mean Corpuscular Hemoglobin 29.4 pg (28.0-34.0); Mean Corpuscular Volume 86.3 fl (80-94); Monocytes # 0.5 10^3/uL (0.2-0.9); Monocytes % 7.4 %; Neutrophils # 4.27 10^3/uL (1.8-7.7); Neutrophils % 66.9 %; Nucleated Red Blood Cells % 0 %; Platelet Count 189 10^3/cmm (130-400); Red Blood Count 5.31 10^6/uL (4.1-5.3); Red Cell Distribution Width 13.2 % (12.1-15.1); White Blood Count 6.4 10^3/uL (4.0-10.0)
[2021-12-19] MEDS: aspirin 81 mg Chew Tablet 324 MG PO (23:36)
[2021-12-19 23:45] VITALS: BP 141/86; PULSE 90; RESP 17; O2SAT 96
[2021-12-19 23:59] LABS: Troponin(5th) Baseline 10 ng/L (0-15)
[2021-12-20 00:05] LABS: Alanine Aminotransferase 60 U/L (0-41); Alkaline Phosphatase 70 IU/L (40-130); Aspartate Amino Transferase 28 U/L (0-40); Blood Urea Nitrogen 12 mg/dL (6-20); Calcium 9.8 mg/dL (8.5-10.5); Carbon Dioxide 28 mmol/L (22-29); Chloride 99 mmol/L (98-107); Globulin 2.8 g/dL (1.3-4.6); Glomerular Filtration Rate 142.6 mL/min (90-130); Glucose 104 mg/dL (65-115); NT Pro B Type Natriuretic Pept 11 pg/mL (0-125); Osmolality Calculated 288 mOsm/kg (285-295); Sodium 139 mmol/L (136-145); Total Bilirubin 0.5 mg/dL (0.15-1.2); Total Protein 7.8 g/dL (6.6-8.7)
--- NOTE | 2021-12-20 01:15 | ECG_ITS ---
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 Measurements Intervals [place] Rate: 72 P: 50 NE: 174 QRS: 40 QRSD: 95 T: 16 QT: 369 QTc: 406 Interpretive Statements SINUS RHYTHM Compared to ECG 12/19/2021 23:09:42 No significant changes Electronically Signed On 12-22-2021 18:18:35 CDT by William Wilks M.D. [id number]
[2021-12-20 01:58] LABS: Troponin 5 2HR 11.31 ng/L (0-15)
[2021-12-20 02:18] LABS: Troponin 5 2HR Delta 1.31 ABS# (0-10)
[2021-12-20] MEDS: lidocaine 2% viscous 15 ML, aluminum-mag hydrox-simethicon 30 ML, sucralfate oral liq 1 GM PO (02:23)
[2021-12-20 02:38] VITALS: BP 155/90; PULSE 71; O2SAT 95
== END 2021-12-20 02:39 | disposition home or self-care (01) ==
PROVIDERS: Emergency Provider Physician Assistant; PCP Family Medicine
DX: R07.89 Other chest pain (principal); Z79.84 Long term (current) use of oral hypoglycemic drugs; Z79.82 Long term (current) use of aspirin; Z79.4 Long term (current) use of insulin; E11.9 Type 2 diabetes mellitus without complications; E78.5 Hyperlipidemia, unspecified; I10 Essential (primary) hypertension; Z87.891 Personal history of nicotine dependence
CPT/HCPCS: 71045; 80053; 83880; 84484; 85025; 93005; 96374; 99285; J2930

== ENCOUNTER 2021-12-30 06:51 | Outpatient (CLI) | payer MEDICARE, MEDICAID, SELFPAY ==
[2021-12-30 06:59] VITALS: BMI 32.8
--- NOTE | 2021-12-30 07:02 | ECG_ITS ---
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 Interpretive Statements NAME OF STUDY: LEXISCAN SESTAMIBI STRESS TEST INDICATION: [Shortness of Breath, ] Procedure: At the baseline, the blood pressure was 131/75 mmHg with a heart rate of 79 bpm. The electrocardiogram showed normal sinus rhythm, normal axis with normal ST and T's. The Lexiscan was infused over a period of 20 seconds. A total of 0.4 mg of Lexiscan was infused. The stress phase was continued for a total of 5 minutes. Heart rate was at the end of stress phase was 97 bpm and a blood pressure of 132/66 mmHg. The EKG at the peak infusion revealed since normal sinus rhythm with no significant ST-T wave changes. Sestamibi was injected 20 seconds after the Lexiscan infusion. Blood pressure at the end of recovery phase was 134/65 mmHg with a heart rate of 94 bpm. PVCs were noted in recovery phase. Conclusion: 1. Normal EKG response to Lexiscan infusion 2. No Lexiscan induced chest pain or cardiac arrhythmia. 3. Normal blood pressure and heart rate response. 4. Sestamibi/sestamibi perfusion scan pending; see separate report. Electronically Signed On 12-30-2021 12:31:42 CDT by William Wilks M.D. [id number]
--- NOTE | 2021-12-30 07:02 | NMCV_ITS ---
NM priti perf SPECT r/s* [id number] Farshad Cruz Age: 51 Gender: M : 1970 Exam Date: 12/30/2021 07:58 Ordering Phys: William Wilks M.D ([email or web address]) Technologist: BILLIE Barron Exam Location: [facility] Indications: SHORTNESS OF BREATH STRESS TEST Please [facility] IMAGE PROTOCOL Rest/Stress 1 Lexiscan Day Radiopharmaceutical Dose (mCi) Administration Site Administered by Rest: Tc-99m 10.6 IV BILLIE Figueroa Sestamibi Stress:Tc-99m 32.8 IV BILLIE Figueroa Sestamibi Rest: 30-Dec-2021 60 Discovery 630 Stress: 30-Dec-2021 30 Discovery 630 0.4mg Lexiscan. Images obtained in supine and prone position. SPECT RESULTS Technical Quality: Excellent Raw Data Analysis: Normal Image Corrections: No attenuation or motion correction applied Summed Stress Score: 4 Summed Rest Score: 0 Summed Difference Score: 4 PERFUSION FINDINGS There is a moderate sized, reversible perfusion defect noted in apical inferior and inferior harrell. This is consistent with moderate sized area of ischemia in RCA territory. FUNCTIONAL RESULTS (calculated via Gated SPECT) Stress Image LV EF (%): 65 Stress EDV (mL):124 TID: 1.21 Stress ESV (mL):43 FUNCTIONAL FINDINGS: There is normal left ventricular systolic function. TID ratio is elevated IMPRESSIONS 1. Abnormal myocardial perfusion imaging with ischemia noted in RCA territory. 2. LV systolic function is normal. 3. Elevated TID ratio is seen. This can represent subendocardial ischemia vs multivessel CAD. William Wilks MD (Electronically Signed) Final Date: 30 December 2021 12:30 S
[2021-12-30 08:40] VITALS: BP 134/65; PULSE 93
[2021-12-30] MEDS: regadenoson 0.4 Mg/5 ml Syringe IVP (09:06)
== END 2021-12-30 06:52 | disposition home or self-care (01) ==
LOC: CDL 06:51
PROVIDERS: PCP Family Medicine; Visit Provider Internal Medicine
DX: R06.02 Shortness of breath (principal)
CPT/HCPCS: 78452; 93017; A9500; J2785

== ENCOUNTER 2022-01-02 09:43 | Outpatient (CLI) | payer MEDICARE, MEDICAID, SELFPAY ==
--- NOTE | 2022-01-02 10:00 | USCV_ITS ---
Farshad Cruz Age: 51 Gender: M : 1970 Exam Date: 01/02/2022 10:15 Ordering Phys: William Wilks M.D ([email or web address]) Technologist: Thelma Mckeon Exam Location: [facility] [place] Indication: SOB BP: / HR: 92 Rhythm: Sinus Technical Quality: Good MEASUREMENTS (Male / Female) Normal Values 2D ECHO LV Diastolic Diameter PLAX 4.8 cm 4.2 - 5.9 / 3.9 - 5.3 cm LV Systolic Diameter PLAX 3.1 cm LV Chamber Size 3.8 cm IVS Diastolic Thickness 1.1 cm 0.6 - 1.0 / 0.6 - 0.9 cm IVS Systolic Thickness 1.4 cm LVPW Diastolic Thickness 1.2 cm 0.6 - 1.0 / 0.6 - 0.9 cm LVPW Systolic Thickness 1.6 cm RV Chamber Size 2.5 cm LVOT Diameter 2.0 cm LV Ejection Fraction 2D Teich 65.4 % LV Ejection Fraction MOD 2C 68.7 % LV Ejection Fraction 2C AL 71.4 % LA Diameter 3.5 cm LA Width 3.5 cm LA Height 3.9 cm RA Width 4.2 cm RA Height 3.4 cm Aorta at Sinotubular Diameter 3.5 cm IVC Diameter 1.8 cm M-MODE Aortic Annulus Diameter 3.9 cm LA Ao Ratio MM 1.4 MV E Point Septal Separation 0.3 cm DOPPLER AV Peak Velocity 146.0 cm/s LVOT Peak Velocity 109.0 cm/s AV Area Cont Eq vti 2.6 cm squared AV Area Cont Eq pk 2.5 cm squared MV Area PHT 3.5 cm squared Mitral E to A Ratio 1.1 MV E' Velocity 42.0 cm/s Mitral E to MV E' Ratio 6.5 Mitral E to LV E' Lateral Ratio 5.0 Mitral E to LV E' Septal Ratio 9.5 TR Peak Velocity 128.1 cm/s TR Peak Gradient 6.6 mmHg TR Mean Velocity 104.1 cm/s TR Mean Gradient 4.6 mmHg TR Velocity Time Integral 29.9 cm TV Peak E Velocity 87.0 cm/s Right Atrial Pressure 3.0 mmHg Pulmonary Artery Systolic Pressu 9.6 mmHg PV Peak Velocity 80.0 cm/s RV Acceleration Time 0.1 s RV Ejection Time 0.3 s RV AcT/ET 0.4 FINDINGS Left Ventricle Normal left ventricular size. LV systolic function is normal with EF of 55-60%. No regional wall motion abnormalities. Right Ventricle The right ventricle is normal in size and function. Right Atrium The right atrium is normal in size. Left Atrium The left atrium is normal in size. Mitral Valve Structurally normal mitral valve without significant stenosis or prolapse. There is no mitral regurgitation. Aortic Valve Structurally normal aortic valve without significant sclerosis or stenosis. There is no aortic regurgitation. Tricuspid Valve Mild tricuspid regurgitation. Pulmonary artery systolic pressure is normal Pulmonic Valve Not well-visualized Pericardium Normal pericardium without effusion. Aorta Normal ascending aorta dimension. IVC CONCLUSIONS LV systolic function is normal with EF of 55 to 60%. No significant valvular heart disease was seen. Mild tricuspid regurgitation noted. Compared to prior echocardiogram from 2018, no significant changes are seen. William Wilks MD (Electronically Signed) Final Date: 13 January 2022 18:43 S
== END 2022-01-02 09:44 | disposition home or self-care (01) ==
LOC: RAD 09:44
PROVIDERS: PCP Family Medicine; Visit Provider Internal Medicine
DX: I07.1 Rheumatic tricuspid insufficiency (principal); R06.02 Shortness of breath
CPT/HCPCS: 93306

== ENCOUNTER 2022-01-05 06:00 | Outpatient (RCR) | payer MEDICARE, MEDICAID, SELFPAY | END 2022-01-28 23:59 | disposition home or self-care (01) | LOC: SPT 06:00 | PROVIDERS: PCP Family Medicine; Referring Provider Nurse Practitioner Acute Care; Visit Provider Nurse Practitioner Acute Care | DX: M51.37 Other intervertebral disc degeneration, lumbosacral region (principal); M53.3 Sacrococcygeal disorders, not elsewhere classified | CPT/HCPCS: 97110; 99214 ==

== ENCOUNTER → 2022-01-07 14:42 | Outpatient (BNVA) | payer MEDICARE, MEDICAID, SELFPAY | PROVIDERS: PCP Family Medicine; Visit Provider Orthopaedic Surgery | DX: M16.11 Unilateral primary osteoarthritis, right hip (principal) | CPT/HCPCS: 99214 ==

== ENCOUNTER → 2022-01-08 10:46 | Outpatient (BNVA) | payer MEDICARE, MEDICAID, SELFPAY | PROVIDERS: PCP Family Medicine; Visit Provider Anesthesiology Pain Medicine | DX: G89.29 Other chronic pain (principal); M51.16 Intervertebral disc disorders with radiculopathy, lumbar region; M96.1 Postlaminectomy syndrome, not elsewhere classified; M54.2 Cervicalgia; M16.11 Unilateral primary osteoarthritis, right hip; Z79.891 Long term (current) use of opiate analgesic; Z87.891 Personal history of nicotine dependence; Z98.890 Other specified postprocedural states | CPT/HCPCS: 99214 ==

== ENCOUNTER 2022-01-13 07:22 | Outpatient (CLI) | payer MEDICARE, MEDICAID, SELFPAY ==
[2022-01-06 12:54] LABS: Basophils % 0.4 %; Eosinophils # 0.2 10^3/uL (0.0-0.8); Eosinophils % 2.2 %; Hematocrit 45.7 % (42.0-52.0); Hemoglobin 15.2 g/dL (11.7-16.6); Lymphocytes % 14.6 %; Mean Corpuscular HGB Conc 33.3 g/dL (30.0-36.0); Mean Corpuscular Hemoglobin 29.2 pg (28.0-34.0); Mean Corpuscular Volume 87.9 fl (80-94); Mean Platelet Volume 11.4 fL (7.4-10.4); Monocytes # 0.4 10^3/uL (0.2-0.9); Monocytes % 6.3 %; Neutrophils # 5.24 10^3/uL (1.8-7.7); Neutrophils % 76.2 %; Nucleated Red Blood Cells % 0 %; Platelet Count 183 10^3/cmm (130-400); Red Cell Distribution Width 13.2 % (12.1-15.1); White Blood Count 6.9 10^3/uL (4.0-10.0)
[2022-01-06 13:00] LABS: Anion Gap 17.2 (5-19); Blood Urea Nitrogen 11 mg/dL (6-20); Calcium 9.8 mg/dL (8.5-10.5); Carbon Dioxide 29 mmol/L (22-29); Chloride 100 mmol/L (98-107); Glomerular Filtration Rate 119.4 mL/min (90-130); Glucose 152 mg/dL (65-115); Osmolality Calculated 296 mOsm/kg (285-295); Potassium 4.2 mmol/L (3.5-5.1); Sodium 142 mmol/L (136-145)
[2022-01-06 13:24] LABS: INR 0.94 (0.83-1.21); Prothrombin Time (Patient) 12.8 Seconds (12.0-15.1)
[2022-01-13] VITALS (41 sets, daily range): BP systolic 106–148; BP diastolic 67–90; PULSE 0–87; RESP 11–22; TEMP 36.6; O2SAT 89–100; BMI 31.7
--- NOTE | 2022-01-13 07:30 | XACV_ITS ---
Ht: 175 cm Wt: 98 kg BSA: 2.21 m2 Gender: Male : 1970 Exam Priority: Routine Procedure(s): Procedure Description: Diagnostic procedure Procedure Description: Left ventriculography Procedure Description: Coronary Angiography Diagnostic Cath Status: Elective Diagnostic Findings * Coronary angiography shows right dominance. * Left main: Patent LAD: Patent prior stent. Has mild 20 to 30% in-stent restenosis Left circumflex artery: Patent RCA: Patent. * Coronary angiography shows right dominance. Conclusions 1. Left main: Patent LAD: Patent prior stent. Has mild 20 to 30% in-stent restenosis Left circumflex artery: Patent RCA: Patent. Recommendations * Aggressive risk factor modification. * Outpatient cardiology follow-up in 4 weeks. Interventional RX Recommendation: medical therapy and/or counseling Diagnostic RX Recommendation: medical therapy and/or counseling Pressures Phase:Rest AO : 112 / 69 ( 83 ) @ 9:20:00 AM 113 / 69 ( 83 ) @ 9:20:00 AM LV : 131 / -13 / 12 @ 9:20:00 AM 131 / -13 / 11 @ 9:20:00 AM Valves Phase:DefaultPhase AV : 19.0 @ 8:29:02 AM AV Mean Gradient: 12.0 @ 8:29:02 AM Clinical Evaluation EBL: 5mL-10mL Procedural Details Procedure Consent Obtained. Admit Source: Out Patient. Pre-Procedure Time Out. Identified patient by full name and date of as verbalized by the patient/guarantor. Does the consent match the physician's order: Yes. Accurate & Complete Informed Consent: Yes. Inpatient/Outpatient History & Physical on Chart: Yes. If H&P is completed, is and addenduem needed: N/A; If yes, is the addendum complete: N/A. Visualize and Verify Site with Patient/Guarantor: N/A. Relevant Radiology Images available: N/A. Pre-op teaching completed and patient verbalized understanding. The risks, benefits, and alternatives of sedation and/or procedure were discussed by physician. The patient agrees to continue. Procedure started. [facility] Clinical Fraility Score: 2: Well. 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 Chest Pain Symptom Assessment: Typical Angina Symptoms. Correct patient, site and procedure confirmed by cath team. Current diagnosis: Chest Pain. PERRLA. Strong, equal hand angle shearer bilaterally. Lungs clear x 5 lobes. IV Site on Arrival: 20 gauge in the right forearm. IV Fluids: 0.9% NaCl at KVO. 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 Pre Procedural Pulses: bilateral dorsalis pedis was 2+. Pre Procedural Pulses: right radial was 3+. Oxygen started at 2liters/min via nasal canula. right groin was prepped with chloroprep then draped in the usual sterile fashion. right radial was prepped with chloroprep then draped in the usual sterile fashion. Baseline sample Acquired. HR: 80 BPM. Physician notified. Physician arrived. Physician scrubbed in. Immediate Pre-Procedure Time Out. Correct Patient: Yes; Correct Procedure: Yes; Correct Site: Yes; Correct Patient Position: Yes; Correct Supplies: Yes; Dried Flammable Prep: Yes; Blood Products Available: N/A;. Lidocaine 1% infiltrated to the right radial. Patty Bay RN was relieved by Rebecca Escudero RN, [facility] as monitoring person. Arterial access obtained. EDP Sample taken: LV 131/-14,12; HR: 85 BPM; SpO2: 97%. Pullback taken: LV 131/-14,11; AO 112/69(83); Mean: 12mmHg, Peak to Peak: 19mmHg, SEP: 20sec/min; HR: 85 BPM; SpO2: 97%. A 5 haitian TIG catheter in over wire. Catheter redirected to the LCA. Multiple views taken of left coronary artery. Catheter redirected to the RCA. Multiple views taken of right coronary artery. Catheter removed over the standard wire. Dr. Wilks scrubbed out. A TR Band was successful obtaining hemostatsis at the Right Radial artery insertion site. TR band placed. Hemostasis obtained. Post Procedure: Pulses reassessed and unchanged. PERRLA. Strong, equal hand angle shearer bilaterally. No VTE prophylaxis required. Medication's Wasted: Lidocaine 1% = 3 mL. Medication's Wasted: Nitro = 49.8 mg. Medication's Wasted: Heparin = 1000 units. Total IV fluids: 28 mL. Post-op diagnosis: Mild-moderate instent stenosis of the Mid LAD. Complications: none. Estimated blood loss: 5mL-10mL. Responsiveness - Normal response to verbal stimuli; alert and oriented, PERRLA. Airway - Unaffected, no intervention required; spontaneous ventilation. Circulation: W/N/L, pulses unchanged. Nausea/Vomiting: No. Procedure completed. Patient transferred by wheelchair to 1st floor. Vital chart was stopped. Access Site Site: Right Radial artery Sheath Size: 6 Fr Hemostasis Method: TR Band Hemostasis Success: Successful Procedure Medications Start: 8:11 AM Stop: 8:11 AM Medication: 0.9% Saline Amount: 75 ml/hr Route: I.V. drip Start: 8:11 AM Stop: 8:11 AM Medication: Fentanyl Amount: 50 mcg Route: I.V. Start: 8:12 AM Stop: 8:12 AM Medication: Versed Amount: 2 mg Route: I.V. Start: 8:19 AM Stop: 8:19 AM Medication: Heparin Amount: 5000 units Start: 8:19 AM Stop: 8:19 AM Medication: Versed Amount: 1 mg Route: I.V. Start: 8:19 AM Stop: 8:19 AM Medication: Fentanyl Amount: 25 mcg Route: I.V. I, the attending physician, have reviewed and verified all procedure medications. Yes, all medications given per verbal order History/Risk Factors Hypertension: Yes Dyslipidemia: Yes Peripheral Arterial Disease (PAD): No Myocardial Infarction (MS): No Obesity: Yes Renal Disease: No Prior Interventions PCI: Yes CABG: No Valve Surgery: No Date of PCI: 01/24/2010 Report Signatures Finalized by William Wilks MD on 01/24/2022 12:38 PM
[2022-01-13] MEDS: diphenhydrAMINE 50 mg Capsule PO (08:01)
--- NOTE | 2022-01-13 08:13 | P.HPUD_ITS ---
Surgery/Procedure H&P Update DATE OF PROCEDURE: January 13, 2022 DATE H&P PERFORMED: 01/05/22 H&P UPDATE INFORMATION: I have reviewed H&P completed within last 30 days, I have examined patient prior to procedure and No changes to prior documentation PREOP DIAGNOSIS: Worsening angina PRIMARY INDICATION FOR PROCEDURE: Worsening angina PLANNED PROCEDURE: Operation Date: 01/13/22 08:30 Proposed Procedures p Left Cardiac Catheterization 78430,R94.39(Left) - William Wilks M.D Possible percutaneous coronary intervention PATIENT REASSESSED PRIOR TO SEDATION, WITH NO CHANGE NOTED: Yes PHYSICAL EXAM: alert, oriented x 3, clear to auscultation bilaterally and regula r rate & rhythm AIRWAY EVAL/ANESTHESIA PLAN: ASA III, Local Anesthesia, Risks, benefits & alternatives of sedation and/or procedure discussed and Patient agrees to continue as planned ADDITIONAL INFORMATION: Moderate sedation
[2022-01-13 08:51] LABS: Glucose Point of Care 137 mg/dL (70-110)
--- NOTE | 2022-01-13 08:58 | PC.NURSE ---
received from cardiac slab tripper at 0835 via w/c.report received.pt is alert and oriented x 4.sr on monitor.denies pain.right wrist with tr band on and inflated.right hand is warm to touch and with brisk capillary refill.palpable radial pulse noted distal to tr band.no hematoma noted.pt oriented to room environment.pt instructed in activity restrictions s/p radial artery procedure and instructed to notify staff for any bleeding,pain,numbness,sob...or for any concerns at all.pt verb understanding of instructions.
--- NOTE | 2022-01-13 13:37 | PC.NURSE ---
tr band slowly deflated and eventually removed at 1300.right hand remains warm to touch and with brisk capillary refill.palpable radial pulse noted.no hematoma formation noted.site dressed with 2x2 gauze and secured with biocclusive drsg.pt instructed in activity restrictions s/p tr band removal...and intstructed to notify staff for any bleeding,pain,numbness,bruising...or for any concerns at all.pt verb understanding of instructions
--- NOTE | 2022-01-13 14:30 | PC.NURSE ---
discharge instructions given and explained.pt verb understanding of instructions.discharged ambulatory to exit.family member to drive pt home.
== END 2022-01-13 14:12 | disposition home or self-care (01) ==
LOC: CCL 07:23 → CSU 08:41
PROVIDERS: PCP Family Medicine; Visit Provider Internal Medicine
DX: I25.10 Atherosclerotic heart disease of native coronary artery without angina pectoris (principal); Z95.5 Presence of coronary angioplasty implant and graft; E66.9 Obesity, unspecified; Z68.31 Body mass index [BMI] 31.0-31.9, adult; E78.5 Hyperlipidemia, unspecified; I10 Essential (primary) hypertension; Z79.82 Long term (current) use of aspirin; Z79.84 Long term (current) use of oral hypoglycemic drugs; Z79.4 Long term (current) use of insulin; E11.9 Type 2 diabetes mellitus without complications; G47.33 Obstructive sleep apnea (adult) (pediatric); Z87.891 Personal history of nicotine dependence
CPT/HCPCS: 36415; 36416; 80048; 82962; 85025; 85610; 93452; 93458; 96360; 99152; C1769; C1887; C1894; J1644; J2250; J3010; J3490; J7030; Q0163; Q9967

== ENCOUNTER → 2022-01-20 09:55 | Outpatient (BNVA) | payer MEDICARE, MEDICAID, SELFPAY | PROVIDERS: PCP Family Medicine; Visit Provider Nurse Practitioner Family | DX: I25.10 Atherosclerotic heart disease of native coronary artery without angina pectoris (principal); I10 Essential (primary) hypertension; Z87.891 Personal history of nicotine dependence | CPT/HCPCS: 36415; 80048; 99214 ==

== ENCOUNTER → 2022-01-27 09:46 | Outpatient (BNVA) | payer MEDICARE, MEDICAID, SELFPAY | PROVIDERS: PCP Family Medicine; Visit Provider Orthopaedic Surgery | DX: M16.11 Unilateral primary osteoarthritis, right hip (principal) | CPT/HCPCS: 99213; 99214 ==

== ENCOUNTER → 2022-02-10 10:07 | Outpatient (BNVA) | payer MEDICARE, MEDICAID, SELFPAY | PROVIDERS: PCP Family Medicine; Visit Provider Anesthesiology Pain Medicine | DX: G89.29 Other chronic pain (principal); M51.16 Intervertebral disc disorders with radiculopathy, lumbar region; M96.1 Postlaminectomy syndrome, not elsewhere classified; M54.2 Cervicalgia; M16.11 Unilateral primary osteoarthritis, right hip; M79.605 Pain in left leg; Z87.891 Personal history of nicotine dependence; Z98.890 Other specified postprocedural states | CPT/HCPCS: 99214 ==

== ENCOUNTER → 2022-02-16 14:43 | Outpatient (BNVA) | payer MEDICARE, MEDICAID, SELFPAY | PROVIDERS: PCP Family Medicine; Visit Provider Internal Medicine | DX: I10 Essential (primary) hypertension (principal); Z98.61 Coronary angioplasty status; E11.9 Type 2 diabetes mellitus without complications; Z79.4 Long term (current) use of insulin; Z79.84 Long term (current) use of oral hypoglycemic drugs; E78.5 Hyperlipidemia, unspecified; F17.220 Nicotine dependence, chewing tobacco, uncomplicated | CPT/HCPCS: 99214 ==

== ENCOUNTER 2022-03-09 06:00 | Outpatient (CLI) | payer MEDICARE, MEDICAID, SELFPAY | END 2022-03-09 06:01 | disposition home or self-care (01) | LOC: RT 03-24 06:10 | PROVIDERS: PCP Family Medicine; Visit Provider Orthopaedic Surgery | DX: Z01.818 Encounter for other preprocedural examination (principal) | CPT/HCPCS: 93005 ==

== ENCOUNTER → 2022-03-10 09:52 | Outpatient (BNVA) | payer MEDICARE, MEDICAID, SELFPAY | PROVIDERS: PCP Family Medicine; Visit Provider Anesthesiology Pain Medicine | DX: G89.29 Other chronic pain (principal); M51.16 Intervertebral disc disorders with radiculopathy, lumbar region; M96.1 Postlaminectomy syndrome, not elsewhere classified; M54.2 Cervicalgia; M16.11 Unilateral primary osteoarthritis, right hip; M79.605 Pain in left leg; Z98.890 Other specified postprocedural states | CPT/HCPCS: 99214 ==

== ENCOUNTER 2022-03-23 10:55 | Observation (INO) | payer MEDICARE, MEDICAID, SELFPAY ==
[2022-03-09 11:40] VITALS: BMI 34.0
--- NOTE | 2022-03-09 12:09 | ECG_ITS ---
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 Measurements Intervals [place] Rate: 76 P: 45 CO: 176 QRS: 39 QRSD: 81 T: 25 QT: 330 QTc: 371 Interpretive Statements SINUS RHYTHM Compared to ECG 12/20/2021 01:08:37 No significant changes Electronically Signed On 03-09-2022 17:42:23 CDT by William Wilks M.D. [id number] f
[2022-03-09 12:19] LABS: Basophils # 0.1 10^3/uL (0.0-0.1); Basophils % 0.8 %; Eosinophils # 0.2 10^3/uL (0.0-0.8); Eosinophils % 3.2 %; Hematocrit 45.7 % (42.0-52.0); Hemoglobin 15.3 g/dL (11.7-16.6); Lymphocytes # 1.2 10^3/uL (0.8-4.8); Lymphocytes % 19.6 %; Mean Corpuscular HGB Conc 33.5 g/dL (30.0-36.0); Mean Corpuscular Volume 86.6 fl (80-94); Mean Platelet Volume 11.6 fL (7.4-10.4); Monocytes # 0.4 10^3/uL (0.2-0.9); Monocytes % 6.9 %; Neutrophils # 4.32 10^3/uL (1.8-7.7); Neutrophils % 69.2 %; Nucleated Red Blood Cells % 0 %; Platelet Count 165 10^3/cmm (130-400); Red Blood Count 5.28 10^6/uL (4.1-5.3); Red Cell Distribution Width 12.5 % (12.1-15.1); White Blood Count 6.2 10^3/uL (4.0-10.0)
--- NOTE | 2022-03-09 12:29 | ANES.PREANE2 ---
Pre-Anesthetic Assessment Height/Weight: Height 1.75 m Weight 104.326 kg Preop Diagnosis: OA Operation Date: 03/23/22 07:00 Proposed Procedures p right total hip arthroplasty/ 43895,M16.11(Right) - Calin Huynh MD Familial anesthetic complications: None Social Tobacco and No alcohol Exam alert, oriented x 3, clear to auscultation bilaterally and regular rate & rhythm Airway Submandibular: within normal limits Cervical ROM: within normal limits Mallampati: Class II Dentition: full Pulmonary Sleep Apnea (Uses CPAP) Denies COPD, asthma CV/HEM Coronary Artery Disease (CA stent LAD 2009) Limited METS d/t pain None reported Hepatic None reported GI Gastroesophageal Reflux Disease (Well controlled ) Metabolic Diabetes Mellitus Musc/skel Osteoarthritis/DJD Neuropsych None reported Anesthetic Plan ASA status: 3 Anesthesia: Anesthesia Evaluation, General and Regional (specify below) Other: We discussed risk and benefits of general vs spinal anesthesia including DVT risk, infection, paralysis/catastrophic nerve injury, back bruising/pain, PDPH, conversion to general in case of spinal, PONV, sore throat (sometimes severe), corneal abrasion, positioning and peripheral nerve injuries, life threatening allergic reaction, post operative ICU admission requiring prolonged intubation, stroke, heart attack, , post operative delirium and/or post operative cognitive decline, and rare incidences of recall (under general anesthesia). Dicussed medications, holding ASA and ibuprofen for 5 days, 1/2 dose insulin night before surgery, holding diabetic, OTC, and BP medications day of surgery. Prefers general. Risk of > 500 ml blood loss (7ml/kg in children): No Medications/Allergies Home Medications Medication Instructions Recorded Confirmed Last Taken Type aspirin 325 mg tablet 325 mg PO DAILY 11/29/19 03/09/22 01/12/22 08:00 History cinnamon bark 500 mg capsule 1,000 mg PO BID 11/29/19 03/09/22 01/12/22 20:00 History (Cinnamon) dapagliflozin 10 mg tablet 10 mg PO DAILY 11/29/19 03/09/22 01/12/22 08:00 History (Farxiga) esomeprazole magnesium 40 mg 40 mg PO BID 11/29/19 03/09/22 01/12/22 20:00 History capsule,delayed release (Nexium) fluticasone propionate 50 1 spray intranasal DAILY 11/29/19 03/09/22 01/12/22 08:00 History mcg/actuation nasal spray,suspension (Flonase Allergy Relief) linagliptin 5 mg tablet (Tradjenta) 5 mg PO DAILY 11/29/19 03/09/22 01/12/22 08:00 History lisinopril 20 1 tab PO DAILY 11/29/19 03/09/22 01/12/22 08:00 History mg-hydrochlorothiazide 25 mg tablet metformin 1,000 mg tablet 1,000 mg PO BID 11/29/19 03/09/22 01/12/22 08:00 History metoprolol succinate 50 mg 25 mg PO DAILY 11/29/19 03/09/22 01/12/22 08:00 History tablet,extended release 24 hr nortriptyline 10 mg capsule 20 mg PO BEDTIME 11/29/19 03/09/22 01/12/22 08:00 History pregabalin 75 mg capsule (Lyrica) 75 mg PO BID 11/29/19 03/09/22 01/12/22 08:00 History semaglutide 1 mg/dose (2 mg/1.5 See Rx Instructions .Route .COMPLEX 11/29/19 03/09/22 12/05/19 History mL) subcutaneous pen injector (Ozempic) B-complex with vitamin C (Super B 1 tab PO DAILY 06/13/20 03/09/22 01/12/22 08:00 History Complex-Vitamin C tablet) ascorbic acid (vitamin C) 1,000 mg 500 mg PO DAILY 06/13/20 03/09/22 01/12/22 08:00 History tablet melatonin 10 mg capsule 10 mg PO DAILY 12/12/20 03/09/22 01/12/22 08:00 History ibuprofen 200 mg tablet 200 mg PO QID PRN pain 12/26/20 03/09/22 01/12/22 20:00 History tizanidine 2 mg capsule 4 mg PO BID PRN Pain 03/20/21 03/09/22 01/12/22 08:00 History atorvastatin 80 mg tablet 80 mg PO DAILY #90 tabs 07/29/21 03/09/22 01/12/22 08:00 Rx insulin glargine U-300 conc 300 42 unit SUBCUT DAILY 12/09/21 03/09/22 01/12/22 20:00 History unit/mL (1.5 mL) subcutaneous pen (Toujeo SoloStar U-300 Insulin) nitroglycerin 0.4 mg sublingual 0.4 mg sublingual Q5M PRN chest 01/05/22 03/09/22 Unknown Rx tablet pain #25 tabs hydrocodone 5 mg-acetaminophen 325 1 tab PO Q8H PRN pain 30 days #90 02/10/22 03/09/22 Unknown Rx mg tablet tabs dapagliflozin 10 mg tablet 10 mg PO DAILY 03/09/22 03/09/22 Unknown History ([facility]) vitamin A-vitamin C-vit E-min 1 tab PO DAILY 03/09/22 03/09/22 Unknown History tablet Allergies Allergy/AdvReac Type Severity Reaction Status Date / Time sulfamethoxazole Allergy Intermediate ALGY-Rash Verified 03/09/22 11:22 [From Bactrim] trimethoprim [From Bactrim] Allergy Intermediate ALGY-Rash Verified 03/09/22 11:22 PFS Anesthesia Medical History Atherosclerosis of coronary artery Diabetes Dyslipidemia HTN (hypertension) Obesity HIRA (obstructive sleep apnea) Surgical History Previous back surgery total of 6 back surgeries S/P PTCA (percutaneous transluminal coronary angioplasty) Social History Smoking and tobacco status: current every day smoker (chew) Second hand smoke exposure: Yes Alcohol intake: never Marital status: Single History of recent travel: No Data Anesthesia : 03/09/22 12:06 03/09/22 12:06 Short CBC 03/09/22 Range/Units 12:06 WBC 6.2 (4.0-10.0) 10^3/uL Hgb 15.3 (11.7-16.6) g/dL Hct 45.7 (42.0-52.0) % MCV 86.6 (80-94) fl Plt Count 165 (130-400) 10^3/cmm Neut % (Auto) 69.2 % Neut # (Auto) 4.32 (1.8-7.7) 10^3/uL Cardiac Studies: Echocardiogram 01/02/22 Sestamibi Stress Test (Cardiology) 12/30/21
[2022-03-09 12:43] LABS: Anion Gap 17.6 (5-19); Blood Urea Nitrogen 15 mg/dL (6-20); Calcium 10.2 mg/dL (8.5-10.5); Carbon Dioxide 27 mmol/L (22-29); Chloride 96 mmol/L (98-107); Glomerular Filtration Rate 142.6 mL/min (90-130); Glucose 156 mg/dL (65-115); Osmolality Calculated 286 mOsm/kg (285-295); Potassium 4.6 mmol/L (3.5-5.1); Sodium 136 mmol/L (136-145)
--- NOTE | 2022-03-22 20:01 | P.HP_ITS ---
Same Day Surgery H&P Indication for Procedure/HPI DATE OF PROCEDURE: March 23, 2022 CHIEF COMPLAINT/INDICATIONFOR SURGICAL PROCEDURE: Osteoarthritis right hip here for right total hip arthroplasty PREOP DIAGNOSIS: OA PLANNED PROCEDURE: Operation Date: 03/23/22 07:00 Proposed Procedures p right total hip arthroplasty/ 81231,M16.11(Right) - Calin Huynh MD He has had pain to his Hip since July 15, 2020.? Describes steady and progressive severe inguinal hip pain.? He can scarcely walk even short distances.? He has a difficult time sleeping.? He states that he is active in physical therapy with relief.? He is currently taking hydrocodone for pain and even that is not helping.? He has been cleared by cardiology and is here today for total hip arthroplasty Medications/Allergies* Home Medications Medication Instructions Recorded Confirmed Type aspirin 325 mg tablet 325 mg PO DAILY 11/29/19 03/23/22 History cinnamon bark 500 mg capsule 1,000 mg PO BID 11/29/19 03/23/22 History (Cinnamon) dapagliflozin 10 mg tablet 10 mg PO DAILY 11/29/19 03/23/22 History (Farxiga) esomeprazole magnesium 40 mg 40 mg PO BID 11/29/19 03/23/22 History capsule,delayed release (Nexium) fluticasone propionate 50 1 spray intranasal DAILY 11/29/19 03/23/22 History mcg/actuation nasal spray,suspension (Flonase Allergy Relief) linagliptin 5 mg tablet (Tradjenta) 5 mg PO DAILY 11/29/19 03/23/22 History lisinopril 20 1 tab PO DAILY 11/29/19 03/23/22 History mg-hydrochlorothiazide 25 mg tablet metformin 1,000 mg tablet 1,000 mg PO BID 11/29/19 03/23/22 History metoprolol succinate 50 mg 25 mg PO DAILY 11/29/19 03/23/22 History tablet,extended release 24 hr nortriptyline 10 mg capsule 20 mg PO BEDTIME 11/29/19 03/23/22 History pregabalin 75 mg capsule (Lyrica) 75 mg PO BID 11/29/19 03/23/22 History semaglutide 1 mg/dose (2 mg/1.5 See Rx Instructions .Route .COMPLEX 11/29/19 03/23/22 History mL) subcutaneous pen injector (Ozempic) B-complex with vitamin C (Super B 1 tab PO DAILY 06/13/20 03/23/22 History Complex-Vitamin C tablet) ascorbic acid (vitamin C) 1,000 mg 500 mg PO DAILY 06/13/20 03/23/22 History tablet melatonin 10 mg capsule 10 mg PO DAILY 12/12/20 03/23/22 History ibuprofen 200 mg tablet 200 mg PO QID PRN pain 12/26/20 03/23/22 History tizanidine 2 mg capsule 4 mg PO BID PRN Pain 03/20/21 03/23/22 History insulin glargine U-300 conc 300 42 unit SUBCUT DAILY 12/09/21 03/23/22 History unit/mL (1.5 mL) subcutaneous pen (Toujeo SoloStar U-300 Insulin) dapagliflozin 10 mg tablet 10 mg PO DAILY 03/09/22 03/23/22 History (Farxiga) vitamin A-vitamin C-vit E-min 1 tab PO DAILY 03/09/22 03/23/22 History tablet Allergies/Adverse Reactions Allergy/AdvReac Type Severity Reaction Status Date / Time sulfamethoxazole Allergy Intermediate ALGY-Rash Verified 03/10/22 10:10 [From Bactrim] trimethoprim [From Bactrim] Allergy Intermediate ALGY-Rash Verified 03/10/22 10:10 Pertinent History/Comorbid Conditions* Medical History (Updated 01/20/22 @ 10:00 by ZHEN Velasquez) Atherosclerosis of coronary artery Diabetes Dyslipidemia HTN (hypertension) Obesity HIRA (obstructive sleep apnea) Surgical History (Updated 12/26/20 @ 09:34 by Valdez Mcdonald MD) Previous back surgery total of 6 back surgeries S/P PTCA (percutaneous transluminal coronary angioplasty) Social History Smoking and tobacco status: current every day smoker (chew) Second hand smoke exposure: Yes Alcohol intake: never Marital status: Single History of recent travel: No Pertinent Exam Findings alert, oriented x 3, clear to auscultation bilaterally, regular rate & rhythm and operative site marked Pertinent Data Radiographs of the right hip are again personally interpreted dated 12/10/2021.? The patient has flattening of his femoral head and complete obliteration of his superior joint space with cyst in the superior head and acetabulum. 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
[2022-03-23] VITALS (16 sets, daily range): BP systolic 120–142; BP diastolic 68–87; PULSE 71–88; RESP 12–20; TEMP 36.7–37.2; O2SAT 93–99
[2022-03-23 06:24] LABS: Glucose Point of Care 135 mg/dL (70-110)
[2022-03-23] MEDS: acetaminophen 500 mg Tablet 1000 MG PO ×3 (06:37→22:10)
[2022-03-23] MEDS: gabapentin 300 mg Capsule PO (06:38)
[2022-03-23] MEDS: oxyCODONE 20 mg ER (12 HR) Tablet PO (06:38)
--- NOTE | 2022-03-23 06:44 | P.ANESUD_ITS ---
Pre-Anesthetic Update Pre-Anesthetic Assessment: Date of Surgery/Procedure: 03/23/22 Preop Caitlin gnosis: Osteoarthritis right hip Proposed Procedure: Operation Date: 03/23/22 07:00 Proposed Procedures p right total hip arthroplasty/ 01834,M16.11(Right) - Calin Huynh MD Any changes to Pre-Anesthetic Assessment?: No Last Intake: Intake Last Liquid Date 03/22/22 Last Liquid Time 23:00 Last Solid Date 03/22/22 Last Solid Time 19:00 Vitals: Respiratory Rate 18 03/23/22 06:38 Respiratory Effort 03/23/22 06:38 Respiratory Depth Normal 03/23/22 06:38 Respiratory Patter n 03/23/22 06:38 Pulse Oximetry 99 03/23/22 06:38 Exam: Pre-Anes Outpt Exam: alert, oriented x 3, clear to auscultation bilaterally and regular rate & rhythm Cardiac Studies: Echocardiogram 01/02/22 Sestamibi Stress Test (Cardiology) 12/30
--- NOTE | 2022-03-23 06:45 | ANES.PREANE2 ---
Pre-Anesthetic Assessment Height/Weight: Height 1.75 m Weight 104.326 kg Resp Pulse Ox 18 99 03/23/22 06:38 03/23/22 06:38 Preop Diagnosis: Osteoarthritis right hip Operation Date: 03/23/22 07:00 Proposed Procedures p right total hip arthroplasty/ 59509,M16.11(Right) - Calin Huynh MD Familial anesthetic complications: N/V Was Beta Varun taken within 24 hours: Yes Was Clonidine taken within 24 hours: N/A Last intake: Intake Last Liquid Date 03/22/22 Last Liquid Time 23:00 Last Solid Date 03/22/22 Last Solid Time 19:00 Social No alcohol and No tobacco Exam alert, oriented x 3, clear to auscultation bilaterally and regular rate & rhythm Airway Submandibular: within normal limits Cervical ROM: within normal limits Mallampati: Class II Dentition: full History/ROS No significant history except as noted and No significant complaints Pulmonary Sleep Apnea (CPAP) CV/HEM Arrythmia (tachycardia), Coronary Artery Disease (Stent x1 in 2009, last saw application design engineer in December 2021, EF 55-60%) and Hypertension None reported Hepatic None reported GI Gastroesophageal Reflux Disease (Controlled with meds. No complaints this AM) Metabolic Diabetes Mellitus, Hyperlipidemia and Morbid Obesity Musc/skel Lower Back Pain, Osteoarthritis/DJD and Weakness (Right leg weakness due to OA) Neuropsych Neuropathy Anesthetic Plan ASA status: 2 Anesthesia: Anesthesia Evaluation and General Risk of > 500 ml blood loss (7ml/kg in children): No Medications/Allergies Home Medications Medication Instructions Recorded Confirmed Last Taken Type aspirin 325 mg tablet 325 mg PO DAILY 11/29/19 03/23/22 03/19/22 History cinnamon bark 500 mg capsule 1,000 mg PO BID 11/29/19 03/23/22 03/22/22 History (Cinnamon) dapagliflozin 10 mg tablet 10 mg PO DAILY 11/29/19 03/23/22 03/22/22 History (Farxiga) esomeprazole magnesium 40 mg 40 mg PO BID 11/29/19 03/23/22 03/22/22 History capsule,delayed release (Nexium) fluticasone propionate 50 1 spray intranasal DAILY 11/29/19 03/23/22 03/22/22 History mcg/actuation nasal spray,suspension (Flonase Allergy Relief) linagliptin 5 mg tablet (Tradjenta) 5 mg PO DAILY 11/29/19 03/23/22 03/22/22 History lisinopril 20 1 tab PO DAILY 11/29/19 03/23/22 03/22/22 History mg-hydrochlorothiazide 25 mg tablet metformin 1,000 mg tablet 1,000 mg PO BID 11/29/19 03/23/22 03/22/22 History metoprolol succinate 50 mg 25 mg PO DAILY 11/29/19 03/23/22 03/22/22 09:00 History tablet,extended release 24 hr nortriptyline 10 mg capsule 20 mg PO BEDTIME 11/29/19 03/23/22 03/22/22 History pregabalin 75 mg capsule (Lyrica) 75 mg PO BID 11/29/19 03/23/22 03/22/22 History semaglutide 1 mg/dose (2 mg/1.5 See Rx Instructions .Route .COMPLEX 11/29/19 03/23/22 03/17/22 History mL) subcutaneous pen injector ([employer]) B-complex with vitamin C (Super B 1 tab PO DAILY 06/13/20 03/23/22 03/22/22 History Complex-Vitamin C tablet) ascorbic acid (vitamin C) 1,000 mg 500 mg PO DAILY 06/13/20 03/23/22 03/22/22 History tablet melatonin 10 mg capsule 10 mg PO DAILY 12/12/20 03/23/22 03/22/22 History ibuprofen 200 mg tablet 200 mg PO QID PRN pain 12/26/20 03/23/22 03/09/22 History tizanidine 2 mg capsule 4 mg PO BID PRN Pain 03/20/21 03/23/22 03/22/22 History atorvastatin 80 mg tablet 80 mg PO DAILY #90 tabs 07/29/21 03/23/22 03/22/22 Rx insulin glargine U-300 conc 300 42 unit SUBCUT DAILY 12/09/21 03/23/22 03/22/22 History unit/mL (1.5 mL) subcutaneous pen (Jenelle SoloStar U-300 Insulin) nitroglycerin 0.4 mg sublingual 0.4 mg sublingual Q5M PRN chest 01/05/22 03/10/22 Unknown Rx tablet pain #25 tabs dapagliflozin 10 mg tablet 10 mg PO DAILY 03/09/22 03/23/22 03/22/22 History ([facility] [place]) vitamin A-vitamin C-vit E-min 1 tab PO DAILY 03/09/22 03/23/22 03/22/22 History tablet hydrocodone 5 mg-acetaminophen 325 1 tab PO Q8H PRN pain 30 days #90 03/10/22 03/23/22 03/22/22 Rx mg tablet tabs Allergies Allergy/AdvReac Type Severity Reaction Status Date / Time sulfamethoxazole Allergy Intermediate ALGY-Rash Verified 03/10/22 10:10 [From Bactrim] trimethoprim [From Bactrim] Allergy Intermediate ALGY-Rash Verified 03/10/22 10:10 [facility] Anesthesia Medical History Atherosclerosis of coronary artery Diabetes Dyslipidemia HTN (hypertension) Obesity HIRA (obstructive sleep apnea) Surgical History Previous back surgery total of 6 back surgeries S/P PTCA (percutaneous transluminal coronary angioplasty) Social History Smoking and tobacco status: current every day smoker (chew) Second hand smoke exposure: Yes Alcohol intake: never Marital status: Single History of recent travel: No Data Anesthesia : 03/09/22 12:06 03/09/22 12:06 Cardiac Studies: Echocardiogram 01/02/22 Sestamibi Stress Test (Cardiology) 12/30/21
[2022-03-23] MEDS: sodium chloride 0.9% 1,000 ML 30 ML IV (06:50)
[2022-03-23] MEDS: ceFAZolin 2,000 MG in sodium chloride 0.9% (plus) 50 ML 100 MG IV ×3 (07:00→22:10)
[2022-03-23] MEDS: tranexamic acid 1,000 mg/10mL SDV 1000 MG IV (07:32)
--- NOTE | 2022-03-23 08:48 | PM.OP ---
Operative Report Date of procedure: March 23, 2022 Pre-op diagnosis: Preop Diagnosis Osteoarthritis right hip Post-op diagnosis: same Post-op diagnosis: Same Procedure done: Right total hip arthroplasty Implants: 1) Oakwood 54 mm Trident 2 solid back acetabular shell 2) Size 5 Oakwood 127 degree neck angle Accolade 2 stem 3} 28mm standard ceramic femoral head 4} E MDM metal liner Pathology: none sent Surgeon: Calin Huynh Machine Sweeper Brush Maker: Felix Castrejon Machine Sweeper Brush Maker: The nurse practitioner assisted with rectal portions of the case include positioning, manipulation of the hip during the case, exposure including placement of implants, wound closure, dressing application and abduction pillow placement Anesthesia: General Estimated blood loss (mL): 100 Findings: Patient had severe degenerative changes of the right hip with flattening and eburnation of the femoral head Condition: stable Disposition: PACU Procedure: The patient was taken to the operating room and anesthesia provided by the anesthesia service. The patient was placed in the lateral position on a pegboard. A timeout was performed. The patient was draped in the usual fashion. A 15 cm long incision was made beginning just proximal to the greater trochanter and extending posteriorly to a point just distal to the trochanter on the posterior border of the trochanter. Dissection was carried down with electrocautery through the subcutaneous fat to the fascia beba which was divided proximally and distally with curved scissors. The anterior two thirds of the gluteus medius and minimus were elevated off the hip with electrocautery. The capsule was divided in a H-like fashion. The hip was dislocated and a neck cut made just above the level of the lesser trochanter. Exposure of the acetabulum was facilitated with the acetabular retractors. Remnants of labrum and peripheral osteophytes were removed with electrocautery and a rongeur. A reamer 2 mm under the size the femoral head was utilized to ream medially to the base of the palm and are. Reaming was then increased in 1 mm intervals until a healthy rim a trabecular bone was encountered. The rim was touched with the reamer the size of the final acetabular shell to be placed. A final Trident 2 acetabular cup of the same size as the final reaming was press-fit into place. The ADM liner was secured. Attention was then focused on the femur. The canal was localized with a canal finder. Broaching was then accomplished until a stable broach size was obtained. A trial reduction with the head and neck provided excellent stability. The wound was irrigated with saline and antibiotic solution. The final Oakwood Accolade II stem was press-fit into place. The femoral head was placed and the hip was reduced. The hip was brought through range of motion and found to be free of impingement and stable. The anterior capsule was reapproximated with 1 Ethibond. The gluteus medius and minimus were repaired through bone with 5 Ethibond and reinforced with 1 Ethibond. The fascial beba was closed with a running 0 Stratafix suture. Deep pelvic tissues were closed with 2-0 Stratafix and the skin with a running 4-0 l Stratafix. The skin was covered with a Prineo dressing and op site dressings.
--- NOTE | 2022-03-23 08:58 | XRR_ITS ---
PROCEDURE INFORMATION: Exam: XR Right Hip Exam date and time: 03/23/2022 9:25 AM Age: 51 years old Clinical indication: Device placement; Other: Total hip arthroplasty; Prior surgery; Surgery date: Post-operative (0-2 days) TECHNIQUE: Imaging protocol: Radiologic exam of the Right hip. Views: 1 view hip with pelvis when performed. COMPARISON: CR XR hip RT 2-3V wo/w pel* [id number] 12/10/2021 4:54 PM FINDINGS: Bones/joints: Postsurgical changes are seen status post noncemented right bipolar hip arthroplasty. There is expected alignment without fracture or loosening. Soft tissues: Soft tissue gas and swelling is seen in the hip region, related to the recent surgery. Notes: Followup radiographs may be obtained for complete assessment. XR/XR hip RT 1V wo/w pel [id number] IMPRESSION: Postsurgical changes of the right hip, as noted above.
[2022-03-23] MEDS: morphine 4 mg/mL SDV 1 mL IVP ×2 (11:12→19:46)
[2022-03-23] MEDS: fluticasone nasal spray 16gm Btl 1 SPRAY INTRANASAL (11:12)
[2022-03-23] MEDS: pregabalin 75 mg Capsule PO ×2 (11:13→19:41)
[2022-03-23] MEDS: metoprolol succinate ER (24 HR) 50 mg Tablet 25 MG PO (11:13)
[2022-03-23] MEDS: aspirin 325 mg Tablet PO (11:13)
[2022-03-23] MEDS: oxyCODONE 5 mg IR Tab/Cap PO ×3 (11:13→22:11)
[2022-03-23] MEDS: pantoprazole DR 40 mg Tablet PO ×2 (15:03→17:22)
--- NOTE | 2022-03-23 15:03 | ANE.PACU2 ---
Inpatient post-anesthesia follow up: Airway intact: Yes Vital signs: Temperature 98.9 F Pulse Rate 87 Respiratory Rate 16 Blood Pressure 142/78 Pulse Oximetry 98 Oxygen Delivery Me thod Room Air Oxygen Flow Rate Fraction of Inspir ed Oxygen Hydration adequate: Yes Nausea and vomiting: No Pain level: 1 Mental status: Baseline
[2022-03-23] MEDS: CELEcoxib 200 mg Capsule PO (17:22)
[2022-03-23] MEDS: atorvastatin 40 mg Tablet 80 MG PO (19:41)
[2022-03-23] MEDS: nortriptyline 10 mg Capsule 20 MG PO (19:41)
[2022-03-23] MEDS: tizanidine 4 mg Tablet PO (19:41)
[2022-03-23 22:15] LABS: Glucose Point of Care 164 mg/dL (70-110)
[2022-03-24] VITALS (8 sets, daily range): BP systolic 106–142; BP diastolic 60–78; PULSE 75–94; RESP 12–18; TEMP 36.6–37; O2SAT 93–99
[2022-03-24 03:59] LABS: Hemoglobin 12.8 g/dL (11.7-16.6)
[2022-03-24] MEDS: morphine 4 mg/mL SDV 1 mL IVP (04:04)
[2022-03-24] MEDS: acetaminophen 500 mg Tablet 1000 MG PO ×2 (05:26→14:53)
[2022-03-24] MEDS: ceFAZolin 2,000 MG in sodium chloride 0.9% (plus) 50 ML 100 MG IV (05:27)
[2022-03-24] MEDS: CELEcoxib 200 mg Capsule PO (05:27)
[2022-03-24] MEDS: oxyCODONE 5 mg IR Tab/Cap PO ×3 (05:29→12:46)
[2022-03-24 06:25] LABS: Glucose Point of Care 165 mg/dL (70-110)
--- NOTE | 2022-03-24 08:11 | PM.DCS ---
Discharge Providers Date of Admission: 03/23/22 10:55 Date of Discharge: March 24, 2022 Attending Provider at Admission: Calin Huynh MD Attending Provider at Discharge: Calin Huynh MD Primary Care Provider: Cyrus Covarrubias MD Diagnoses at Discharge Discharge Diagnosis (1) Status post right hip replacement: Status: Acute (2) Osteoarthritis of right hip: Status: Resolved Reason for Visit Reason for Visit: unilateral primary osteoarthritis, right hip Hospital Course Hospital Course The patient tolerated surgery well. They remained hemodynamically stable. They was begun on aspirin and sequential compression dressing for DVT prophylaxis. The patient was mobilized with therapy beginning the day of surgery and by the first postoperative day independent with the walker. As the pain was adequately controlled and they were fully mobile they were discharged home. Physical Exam Narrative: On the day of discharge the hip incision was clean. The incision was free of drainage. They had no particular swelling about the thigh or distal. No distal neurovascular deficits were noted. Discharge Data Studies Completed and Pending Completed Studies During Hospitalization Category Date Time Status XR hip RT 1V wo/[place] [id number] Routine Exams 03/23/22 08:58 Completed Radiology Impressions Hip X-Ray 03/23/22 08:58 IMPRESSION: Postsurgical changes of the right hip, as noted above. Laboratory Results WBC 6.2 10^3/uL (4.0-10.0) 03/09/22 12:06 RBC 5.28 10^6/uL (4.1-5.3) 03/09/22 12:06 Hgb 12.8 g/dL (11.7-16.6) 03/24/22 03:42 Hct 45.7 % (42.0-52.0) 03/09/22 12:06 MCV 86.6 fl (80-94) 03/09/22 12:06 MCH 29.0 pg (28.0-34.0) 03/09/22 12:06 MCHC 33.5 g/dL (30.0-36.0) 03/09/22 12:06 RDW 12.5 % (12.1-15.1) 03/09/22 12:06 Plt Count 165 10^3/cmm (130-400) 03/09/22 12:06 MPV 11.6 fL (7.4-10.4) H 03/09/22 12:06 Neut % (Auto) 69.2 % 03/09/22 12:06 Lymph % (Auto) 19.6 % 03/09/22 12:06 [place] % (Auto) 6.9 % 03/09/22 12:06 Eos % (Auto) 3.2 % 03/09/22 12:06 Baso % (Auto) 0.8 % 03/09/22 12:06 Neut # (Auto) 4.32 10^3/uL (1.8-7.7) 03/09/22 12:06 Lymph # (Auto) 1.2 10^3/uL (0.8-4.8) 03/09/22 12:06 [place] # (Auto) 0.4 10^3/uL (0.2-0.9) 03/09/22 12:06 Eos # (Auto) 0.2 10^3/uL (0.0-0.8) 03/09/22 12:06 Baso # (Auto) 0.1 10^3/uL (0.0-0.1) 03/09/22 12:06 Nucleated RBC % (auto) 0 % 03/09/22 12:06 Nucleated RBCs # 0.0 /100WBC 03/09/22 12:06 Sodium 136 mmol/L (136-145) 03/09/22 12:06 Potassium 4.6 mmol/L (3.5-5.1) 03/09/22 12:06 Chloride 96 mmol/L (98-107) L 03/09/22 12:06 Carbon Dioxide 27 mmol/L (22-29) 03/09/22 12:06 Anion Gap 17.6 (5-19) 03/09/22 12:06 BUN 15 mg/dL (6-20) 03/09/22 12:06 Creatinine 0.6 mg/dL (0.7-1.2) L 03/09/22 12:06 GFR Calculation 142.6 mL/min (90-130) H 03/09/22 12:06 Glucose 156 mg/dL (65-115) H 03/09/22 12:06 POC Glucose 165 mg/dL (70-110) H 03/24/22 06:17 Calculated Osmolality 286 mOsm/kg (285-295) 03/09/22 12:06 Calcium 10.2 mg/dL (8.5-10.5) 03/09/22 12:06 Vitals Last Vital Signs Temp 98.4 F 03/24/22 04:00 Pulse 75 03/24/22 04:00 Resp 18 03/24/22 05:29 BP 125/60 03/24/22 04:00 Pulse Ox 95 03/24/22 04:00 O2 Del Method 03/24/22 04:00 Discharge Plan Discharge Patient Disposition: Home Health Service Condition: Stable Prescriptions: New oxycodone 5 mg Tablet 5 mg PO Q4H PRN (Reason: Moderate Pain) 7 Days Qty: 30 0RF acetaminophen 500 mg Tablet 1,000 mg PO Q8H 14 Days Qty: 84 0RF celecoxib 200 mg Capsule 200 mg PO Q12H 14 Days Qty: 28 0RF Continued Ozempic 1 mg/dose (2 mg/1.5 mL) pen injector See Rx Instructions .ROUTE .COMPLEX Rx Instructions: 2 mg subcutaneously WEEKLY on wednesday Tradjenta 5 mg tablet 5 mg PO DAILY metoprolol succinate 50 mg tablet extended release 24 hr 25 mg PO DAILY fluticasone propionate [Flonase Allergy Relief] 50 mcg/actuation spray,suspension 1 spray INTRANASAL DAILY Rx Instructions: administer into each nostril esomeprazole magnesium [Nexium] 40 mg capsule,delayed release(DR/EC) 40 mg PO BID cinnamon bark [Cinnamon] 500 mg capsule 1,000 mg PO BID metformin 1,000 mg tablet 1,000 mg PO BID Hold Instructions: Resume on 01/15/22. pregabalin [Lyrica] 75 mg capsule 75 mg PO BID nortriptyline 10 mg capsule 20 mg PO BEDTIME lisinopril-hydrochlorothiazide 20-25 mg tablet 1 tab PO DAILY aspirin 325 mg tablet 325 mg PO DAILY Farxiga 10 mg tablet 10 mg PO DAILY tizanidine 2 mg capsule 4 mg PO BID PRN (Reason: Pain) B-complex with vitamin C [Super B Complex-Vitamin C] Tablet 1 tab PO DAILY ascorbic acid (vitamin C) 1,000 mg tablet 500 mg PO DAILY Jenelle Dhillon U-300 Insulin 300 unit/mL (1.5 mL) insulin pen 42 unit SUBCUT DAILY melatonin 10 mg capsule 10 mg PO DAILY nitroglycerin 0.4 mg tablet, sublingual 0.4 mg sublingual Q5M PRN (Reason: chest pain) Qty: 25 2RF Rx Instructions: do not exceed 3 doses per episode atorvastatin 80 mg tablet 80 mg PO DAILY Qty: 90 3RF Ocuvite Tablet 1 tab PO DAILY Farxiga 10 mg tablet 10 mg PO DAILY Discontinued ibuprofen 200 mg tablet 200 mg PO QID PRN (Reason: pain) hydrocodone-acetaminophen 5-325 mg tablet 1 tab PO Q8H MDD 3 PRN (Reason: pain) 30 Days Qty: 90 0RF Rx Instructions: may fill 03/31 [place] [facility] [place] [Outside] Discharge Diet: Advance as tolerated Discharge Activity: Increase activity as tolerated Patient Instructions: Opioid Safety Activity Restrictions/Additional Instructions: Okay to shower. No soaking incision in tub Apply FirstIce up to 20 min/hr for pain and swelling Take Celebrex twice a day for the next 15 days for pain , discontinue other anti-inflammatories Take Tylenol 500mg (up to 2 tabs) 3 times a day for mild pain Take oxycodone for breakthrough pain. Exercises per physical therapy. May weight-bear as tolerated on total hip arthroplasty IF HAVE ANY PROBLEMS OR QUESTIONS CALL [facility] AT AND ASK TO HAVE DR. SESAR JOSE. Discharge Attestations Time Spent in Discharge Care*: other Quality Metrics Clinical Quality Measures [ No reported AMI, CVA or VTE this stay] Coding Level of Care Code Acute Chg FW DC note Diagnoses Status post right hip replacement Z96.641 Osteoarthritis of right hip M16.11
[2022-03-24] MEDS: hydroCHLOROthiazide 25 mg Tablet PO (09:04)
[2022-03-24] MEDS: tizanidine 4 mg Tablet PO (09:05)
[2022-03-24] MEDS: pregabalin 75 mg Capsule PO (09:05)
[2022-03-24] MEDS: pantoprazole DR 40 mg Tablet PO (09:05)
[2022-03-24] MEDS: metoprolol succinate ER (24 HR) 50 mg Tablet 25 MG PO (09:05)
[2022-03-24] MEDS: lisinopril 20 mg Tablet PO (09:05)
[2022-03-24] MEDS: aspirin 325 mg Tablet PO (09:05)
[2022-03-24] MEDS: fluticasone nasal spray 16gm Btl 1 SPRAY INTRANASAL (09:06)
[2022-03-24 11:30] LABS: Glucose Point of Care 228 mg/dL (70-110)
[2022-03-24] MEDS: insulin lispro 100 unit/1 mL SUBCUT (12:47)
== END 2022-03-24 15:15 | disposition home health service (06) ==
PROVIDERS: Anesthesiology; Admitting Provider Orthopaedic Surgery; PCP Family Medicine; Visit Provider Orthopaedic Surgery
PROC: (CPT 27130; principal; 2022-03-23 07:00)
DX: M16.11 Unilateral primary osteoarthritis, right hip (principal); G47.30 Sleep apnea, unspecified; I25.10 Atherosclerotic heart disease of native coronary artery without angina pectoris; Z95.5 Presence of coronary angioplasty implant and graft; I10 Essential (primary) hypertension; K21.9 Gastro-esophageal reflux disease without esophagitis; E78.5 Hyperlipidemia, unspecified; E66.01 Morbid (severe) obesity due to excess calories; Z68.34 Body mass index [BMI] 34.0-34.9, adult; E11.40 Type 2 diabetes mellitus with diabetic neuropathy, unspecified; Z79.82 Long term (current) use of aspirin; G47.33 Obstructive sleep apnea (adult) (pediatric); F17.210 Nicotine dependence, cigarettes, uncomplicated; Z79.84 Long term (current) use of oral hypoglycemic drugs
CPT/HCPCS: 27130; 36415; 36416; 73501; 80048; 82962; 85018; 85025; 96372; 97110; 97116; 97161; 97166; 97530; 97535; C1776; G0378; J1100; J1170; J1580; J1815; J2270; J2370; J2405; J2704; J2710; J3010; J3490; J7030

== ENCOUNTER → 2022-03-27 08:22 | Outpatient (BNVA) | payer MEDICARE, MEDICAID, SELFPAY | PROVIDERS: PCP Family Medicine; Visit Provider Nurse Practitioner Family | DX: Z96.641 Presence of right artificial hip joint (principal) | CPT/HCPCS: 99024 ==

== ENCOUNTER → 2022-04-15 09:12 | Outpatient (BNVA) | payer MEDICARE, MEDICAID, SELFPAY | PROVIDERS: PCP Family Medicine; Visit Provider Orthopaedic Surgery | DX: Z96.641 Presence of right artificial hip joint (principal); Z98.890 Other specified postprocedural states | CPT/HCPCS: 73502; 99024 ==

== ENCOUNTER → 2022-05-04 09:44 | Outpatient (BNVA) | payer MEDICARE, MEDICAID, SELFPAY | PROVIDERS: PCP Family Medicine; Visit Provider Anesthesiology Pain Medicine | DX: G89.29 Other chronic pain (principal); M51.16 Intervertebral disc disorders with radiculopathy, lumbar region; M96.1 Postlaminectomy syndrome, not elsewhere classified; M54.2 Cervicalgia; M25.551 Pain in right hip; M79.605 Pain in left leg; F17.220 Nicotine dependence, chewing tobacco, uncomplicated; Z98.890 Other specified postprocedural states | CPT/HCPCS: 99214 ==

== ENCOUNTER → 2022-05-19 09:03 | Outpatient (BNVA) | payer MEDICARE, MEDICAID, SELFPAY | PROVIDERS: PCP Family Medicine; Visit Provider Orthopaedic Surgery | DX: Z96.641 Presence of right artificial hip joint (principal) | CPT/HCPCS: 73502; 99024 ==

== ENCOUNTER → 2022-06-16 09:26 | Outpatient (BNVA) | payer MEDICARE, MEDICAID, SELFPAY | PROVIDERS: PCP Family Medicine; Visit Provider Orthopaedic Surgery | DX: Z96.641 Presence of right artificial hip joint (principal) | CPT/HCPCS: 99212 ==

== ENCOUNTER → 2022-07-13 09:42 | Outpatient (BNVA) | payer MEDICARE, MEDICAID, SELFPAY | PROVIDERS: PCP Family Medicine; Visit Provider Anesthesiology Pain Medicine | DX: G89.29 Other chronic pain (principal); M51.16 Intervertebral disc disorders with radiculopathy, lumbar region; M96.1 Postlaminectomy syndrome, not elsewhere classified; M54.2 Cervicalgia; M79.605 Pain in left leg; M16.11 Unilateral primary osteoarthritis, right hip; Z98.890 Other specified postprocedural states | CPT/HCPCS: 99214 ==

== ENCOUNTER → 2022-08-24 09:24 | Outpatient (BNVA) | payer MEDICARE, MEDICAID, SELFPAY | PROVIDERS: PCP Family Medicine; Visit Provider Anesthesiology Pain Medicine | DX: G89.29 Other chronic pain (principal); M54.2 Cervicalgia; M51.16 Intervertebral disc disorders with radiculopathy, lumbar region; M79.605 Pain in left leg; M16.12 Unilateral primary osteoarthritis, left hip; M96.1 Postlaminectomy syndrome, not elsewhere classified; Z98.890 Other specified postprocedural states | CPT/HCPCS: 99214 ==

== ENCOUNTER → 2022-09-03 14:39 | Outpatient (BNVA) | payer MEDICARE, MEDICAID, SELFPAY | PROVIDERS: PCP Family Medicine; Visit Provider Anesthesiology Pain Medicine | DX: G89.29 Other chronic pain (principal); M54.16 Radiculopathy, lumbar region; M54.2 Cervicalgia | CPT/HCPCS: 64483; 64484; J1100; J3490 ==

== ENCOUNTER → 2022-09-08 12:53 | Outpatient (BNVA) | payer MEDICARE, MEDICAID, SELFPAY | PROVIDERS: PCP Family Medicine; Visit Provider Internal Medicine | DX: E11.9 Type 2 diabetes mellitus without complications (principal); E78.5 Hyperlipidemia, unspecified; I10 Essential (primary) hypertension; Z98.61 Coronary angioplasty status; F17.220 Nicotine dependence, chewing tobacco, uncomplicated; Z79.82 Long term (current) use of aspirin; Z79.4 Long term (current) use of insulin | CPT/HCPCS: 99213 ==

== ENCOUNTER → 2022-09-09 13:02 | Outpatient (BNVA) | payer MEDICARE, MEDICAID, SELFPAY | PROVIDERS: PCP Family Medicine; Visit Provider Orthopaedic Surgery | DX: Z96.641 Presence of right artificial hip joint (principal); M51.16 Intervertebral disc disorders with radiculopathy, lumbar region | CPT/HCPCS: 72110; 73502; 99213 ==

== ENCOUNTER → 2022-09-17 10:07 | Outpatient (BNVA) | payer MEDICARE, MEDICAID, SELFPAY | PROVIDERS: PCP Family Medicine; Visit Provider Anesthesiology Pain Medicine | DX: G89.29 Other chronic pain (principal); M51.16 Intervertebral disc disorders with radiculopathy, lumbar region; M96.1 Postlaminectomy syndrome, not elsewhere classified; M54.2 Cervicalgia; M79.605 Pain in left leg; M16.11 Unilateral primary osteoarthritis, right hip; Z98.890 Other specified postprocedural states | CPT/HCPCS: 99214 ==

== ENCOUNTER → 2022-09-22 14:43 | Outpatient (BNVA) | payer MEDICARE, MEDICAID, SELFPAY | PROVIDERS: PCP Family Medicine; Visit Provider Orthopaedic Surgery | DX: M51.16 Intervertebral disc disorders with radiculopathy, lumbar region (principal); Z98.890 Other specified postprocedural states; Z96.641 Presence of right artificial hip joint | CPT/HCPCS: 99204 ==

== ENCOUNTER 2022-10-12 13:00 | Outpatient (CLI) | payer MEDICARE, MEDICAID, SELFPAY ==
--- NOTE | 2022-10-12 13:00 | MR_ITS ---
WS: [id number] MRI LUMBAR SPINE NONCONTRAST HISTORY: 6 prior lumbar surgeries. low back pain with radiculopathy, RIGHT lower extremity pain. COMPARISON: 08/02/2015 and prior radiographs 09/09/2022 TECHNIQUE: Sagittal and axial multisequence imaging is submitted. Prior posterior lumbar fusion at L3-4. Interbody spacers at L3-4, L4-5 and L5-S1. Mild increase in the normal lumbar lordosis. Spaces are mildly narrowed and desiccated. Conus terminates normally at L1. L1-L2: Normal. L2-L3: Mild facet arthropathy. No stenosis. L3-L4: Large posterior laminectomy defect. Laminectomy defect is greater to the RIGHT of midline. No central or foraminal stenosis. There is mild foraminal narrowing. L4-L5: Mild annular disc bulging and osteophytic ridging. Marked facet arthropathy. No central stenos is. Large posterior laminectomy defect. Mild bilateral foraminal stenosis. L5-S1: Mild osteophytic ridging and disc bulging. Mild to moderate bilateral foraminal stenosis. Smal l osteophyte in the RIGHT foramen appears to be contacting the RIGHT L5 nerve root. Vertebral soft tissues are negative. MR/MR lumbar spine wo con* [id number] IMPRESSION: 1. Prior posterior lumbar fusion at L3-4 with interbody spacers at L3-4, L4-5 and L5-S1. 2. Posterior laminectomy defects at L3-4 L4-5 and L5-S1. 3. Mild to moderate bilateral foraminal stenosis at L5-S1. Additional small os teophyte in the RIGHT foramen is probably contacting the RIGHT L5 nerve root. 4. Mild foraminal stenosis at L3-4 and L4-5.
== END 2022-10-12 13:01 | disposition home or self-care (01) ==
LOC: RAD 13:06
PROVIDERS: PCP Family Medicine; Visit Provider Orthopaedic Surgery
DX: M51.16 Intervertebral disc disorders with radiculopathy, lumbar region (principal); Z98.890 Other specified postprocedural states; Z98.1 Arthrodesis status; M48.07 Spinal stenosis, lumbosacral region
CPT/HCPCS: 72148

== ENCOUNTER → 2022-10-14 10:53 | Outpatient (BNVA) | payer MEDICARE, MEDICAID, SELFPAY | PROVIDERS: PCP Family Medicine; Visit Provider Anesthesiology Pain Medicine | DX: G89.29 Other chronic pain (principal); M51.16 Intervertebral disc disorders with radiculopathy, lumbar region; M51.17 Intervertebral disc disorders with radiculopathy, lumbosacral region; M96.1 Postlaminectomy syndrome, not elsewhere classified; M54.2 Cervicalgia; M79.605 Pain in left leg; Z98.890 Other specified postprocedural states | CPT/HCPCS: 99214 ==

== ENCOUNTER → 2022-10-15 08:55 | Outpatient (BNVA) | payer MEDICARE, MEDICAID, SELFPAY | PROVIDERS: PCP Family Medicine; Visit Provider Specialist | DX: G62.89 Other specified polyneuropathies (principal) | CPT/HCPCS: 95909; 95911 ==

== ENCOUNTER 2022-10-15 21:19 | Emergency (ER) | payer MEDICARE, MEDICAID, SELFPAY ==
[2022-10-15 21:24] VITALS: BP 147/87; PULSE 95; RESP 16; TEMP 36.7; O2SAT 96; BMI 33.5
--- NOTE | 2022-10-15 21:44 | W.ED.EXTPRO ---
HPI - Extremity Problem General: Chief complaint: Extremity Injury, Lower Stated complaint: Pain in right leg Time Seen by Provider: 10/15/22 21:22 Source: patient Mode of arrival: ambulatory Limitations: no limitations History of Present Illness: 52-year-old male has been having chronic back pain with nerve pain going down his leg for months. Is following with Dr. Mckenna he did have a recent MRI this week along with nerve conduction studies as morning. States he has had some increased pain in his right lower back denies any bowel or bladder incontinence denies any difficulty walking rates his pain an 8 out of 10. Associated symptoms: Deny chest pain, fever(s) or rash Review of Systems Const: Denies: fever(s) Card: Denies: chest pain Resp: Denies: dyspnea GI: Denies: abdominal pain : Denies: flank pain or difficulty urinating Musc: Reports: back pain and extremity pain Skin/Breast: Denies: rash Neuro: Denies: headache(s) PFSH ED PFSH: Medical History Atherosclerosis of coronary artery Diabetes Dyslipidemia HTN (hypertension) Obesity HIRA (obstructive sleep apnea) Surgical History Previous back surgery total of 6 back surgeries S/P PTCA (percutaneous transluminal coronary angioplasty) Social History Smoking and tobacco status: current every day smoker (chew) smokeless tobacco Second hand smoke exposure: No Alcohol intake: never Substance/Drug Use: never Marital status: Single Physical Exam Const: COMMON NORMALS: no acute distress and patient oriented x3 HENMT: COMMON NORMALS: normocephalic and atraumatic HEAD & SCALP: normocephalic and atraumatic Eye: COMMON NORMALS: conjunctivae normal CONJUNCTIVA: Yes conjunctivae normal Neck/C-Spine: COMMON NORMALS: full ROM Chest: COMMONS NORMALS: normal inspection of the chest Resp: COMMON NORMALS: normal respiratory effort Cardio: COMMON NORMALS: regular rate RATE: regular rate GI: INSPECTION: Yes normal to inspection Back/Pelvis: OTHER: No midline tenderness no saddle anesthesia some tenderness over right lower lumbar Extremity: COMMON NORMALS: normal to inspection and full ROM Neuro: COMMON NORMALS: patient oriented x3 Psych: COMMON NORMALS: mental status grossly normal Course Vital Signs: Vital signs: Vital Signs Temperature 98.0 F 10/15/22 21:24 Pulse Rate 95 10/15/22 21:24 Respiratory Rate 16 10/15/22 21:24 Blood Pressure 147/87 10/15/22 21:24 Pulse Oximetry 96 10/15/22 21:24 Oxygen Delivery Me thod Room Air 10/15/22 21:24 MDM - Extremity (Nontraumatic) Medical Decision Making Patient presents with chronic back painWith sciatica he has no signs of cord compression no bowel or bladder incontinence he is stable for discharge he is to follow-up with PCP and return if worsening he understands agrees to plan. Discharge Plan Discharge Patient Disposition: Home Clinical Impression: Low back pain Condition: Stable Prescriptions: New Naprosyn 500 mg tablet 500 mg PO BID PRN (Reason: pain) Qty: 20 0RF No Action Ozempic 1 mg/dose (2 mg/1.5 mL) pen injector See Rx Instructions .ROUTE .COMPLEX Rx Instructions: 2 mg subcutaneously WEEKLY on wednesday Tradjenta 5 mg tablet 5 mg PO DAILY metoprolol succinate 50 mg tablet extended release 24 hr 25 mg PO DAILY fluticasone propionate [Flonase Allergy Relief] 50 mcg/actuation spray,suspension 1 spray INTRANASAL DAILY Rx Instructions: administer into each nostril esomeprazole magnesium [Nexium] 40 mg capsule,delayed release(DR/EC) 40 mg PO BID cinnamon bark [Cinnamon] 500 mg capsule 1,000 mg PO BID metformin 1,000 mg tablet 1,000 mg PO BID Hold Instructions: Resume on 01/15/22. pregabalin [Lyrica] 75 mg capsule 75 mg PO BID nortriptyline 10 mg capsule 20 mg PO BEDTIME lisinopril-hydrochlorothiazide 20-25 mg tablet 1 tab PO DAILY aspirin 325 mg tablet 325 mg PO DAILY tizanidine 2 mg capsule 4 mg PO BID PRN (Reason: Pain) B-complex with vitamin C [Super B Complex-Vitamin C] Tablet 1 tab PO DAILY ascorbic acid (vitamin C) 1,000 mg tablet 500 mg PO DAILY Jenelle Dhillon U-300 Insulin 300 unit/mL (1.5 mL) insulin pen 45 unit SUBCUT DAILY melatonin 10 mg capsule 10 mg PO DAILY nitroglycerin 0.4 mg tablet, sublingual 0.4 mg sublingual Q5M PRN (Reason: chest pain) Qty: 25 2RF Rx Instructions: do not exceed 3 doses per episode oxycodone 5 mg tablet 5 mg PO Q4H PRN (Reason: pain) 7 Days Qty: 30 0RF diazepam [Valium] 5 mg tablet 5 mg PO ONCE PRN (Reason: anxiety) 1 Days Qty: 1 0RF hydrocodone-acetaminophen 5-325 mg tablet 1 tab PO TID PRN (Reason: pain) 30 Days Qty: 90 0RF gabapentin 600 mg tablet 600 mg PO TID 30 Days Qty: 90 0RF (DME) compression stockings See Rx Instructions .Route .MEDSUPPLY Qty: 1 0RF Rx Instructions: As directed atorvastatin 80 mg tablet 80 mg PO DAILY Qty: 90 3RF duloxetine [Cymbalta] 30 mg capsule,delayed release(DR/EC) 30 mg PO DAILY Qty: 30 0RF vitamin A-vitamin C-vit E-min Tablet 1 tab PO DAILY Farxiga 10 mg tablet 10 mg PO DAILY Discharge Orders: Discharge ED (Routine); Ordered 10/15/22 Ordered By: Josh Bay Referrals: Cyrus Covarrubias MD [Primary Care Provider] - 1-3 days Discharge Diet: Advance as tolerated Discharge Activity: Resume usual activity Patient Instructions: Back Pain (ED), Opioid Safety, Pain Management Coding Level of Care Code ED [employer] 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
[2022-10-15] MEDS: dexamethasone 10 mg/mL INJ IM (21:55)
[2022-10-15] MEDS: morphine 4 mg/mL SDV 1 mL IM (21:56)
== END 2022-10-15 22:02 | disposition home or self-care (01) ==
PROVIDERS: Emergency Provider Emergency Medicine; PCP Family Medicine
DX: M54.50 Low back pain, unspecified (principal); Z79.82 Long term (current) use of aspirin; Z79.84 Long term (current) use of oral hypoglycemic drugs; Z79.4 Long term (current) use of insulin; I25.10 Atherosclerotic heart disease of native coronary artery without angina pectoris; I10 Essential (primary) hypertension; E11.9 Type 2 diabetes mellitus without complications; E78.5 Hyperlipidemia, unspecified; F17.220 Nicotine dependence, chewing tobacco, uncomplicated
CPT/HCPCS: 95909; 95911; 96372; 99284; J1100; J2270

== ENCOUNTER → 2022-10-20 13:48 | Outpatient (BNVA) | payer MEDICARE, MEDICAID, SELFPAY | PROVIDERS: PCP Family Medicine; Visit Provider Orthopaedic Surgery | DX: G57.11 Meralgia paresthetica, right lower limb (principal) | CPT/HCPCS: 99214 ==

== ENCOUNTER → 2022-10-28 09:34 | Outpatient (BNVA) | payer MEDICARE, MEDICAID, SELFPAY | PROVIDERS: PCP Family Medicine; Visit Provider Anesthesiology Pain Medicine | DX: G89.29 Other chronic pain (principal); M51.16 Intervertebral disc disorders with radiculopathy, lumbar region; M96.1 Postlaminectomy syndrome, not elsewhere classified; M54.2 Cervicalgia; M79.605 Pain in left leg; Z98.890 Other specified postprocedural states | CPT/HCPCS: 99215 ==

== ENCOUNTER 2022-10-29 19:11 | Emergency (ER) | payer MEDICARE, MEDICAID, SELFPAY ==
[2022-10-29 19:35] VITALS: BP 126/78; PULSE 90; RESP 16; TEMP 36.7; O2SAT 97
[2022-10-29 20:05] LABS: Basophils # 0.1 10^3/uL (0.0-0.1); Basophils % 0.8 %; Eosinophils # 0.4 10^3/uL (0.0-0.8); Hematocrit 40.2 % (42.0-52.0); Hemoglobin 13.3 g/dL (11.7-16.6); Lymphocytes # 1.2 10^3/uL (0.8-4.8); Lymphocytes % 20.2 %; Mean Corpuscular HGB Conc 33.1 g/dL (30.0-36.0); Mean Corpuscular Hemoglobin 28.5 pg (28.0-34.0); Mean Corpuscular Volume 86.1 fl (80-94); Mean Platelet Volume 10.2 fL (7.4-10.4); Monocytes # 0.4 10^3/uL (0.2-0.9); Neutrophils # 3.93 10^3/uL (1.8-7.7); Neutrophils % 64.5 %; Nucleated Red Blood Cells % 0 %; Platelet Count 177 10^3/cmm (130-400); Red Blood Count 4.67 10^6/uL (4.1-5.3); Red Cell Distribution Width 12.6 % (12.1-15.1); White Blood Count 6.1 10^3/uL (4.0-10.0)
[2022-10-29 20:11] VITALS: BP 135/96; PULSE 90; RESP 17; O2SAT 98
[2022-10-29 20:26] LABS: Alanine Aminotransferase 28 U/L (0-41); Albumin Level 4.5 g/dL (3.5-5.2); Alkaline Phosphatase 79 U/L (40-130); Aspartate Amino Transferase 16 U/L (0-40); Blood Urea Nitrogen 16 mg/dL (6-20); Calcium 9.4 mg/dL (8.5-10.5); Carbon Dioxide 28 mmol/L (22-29); Chloride 97 mmol/L (98-107); Creatinine Clr Calc Pharmacy 145.3949; Globulin 2.4 g/dL (1.3-4.6); Glomerular Filtration Rate 118.9 mL/min (90-130); Glucose 217 mg/dL (65-115); Lipase 8 U/L (13-60); Osmolality Calculated 292 mOsm/kg (285-295); Sodium 137 mmol/L (136-145); Total Bilirubin 0.3 mg/dL (0.15-1.2); Total Protein 6.9 g/dL (6.6-8.7)
[2022-10-29 20:59] VITALS: BP 129/61; PULSE 83; RESP 17; O2SAT 93
[2022-10-29 21:18] LABS: Add Urine Microscopic? NO; Charge for UA Resulting for Rev
[2022-10-29 21:22] LABS: Bilirubin Urine Neg (Negative); Blood Urine Neg (Negative); Glucose Urine UA 4+ (Normal); Ketones Urine Negative (Negative); Leukocyte Esterase Urine Negative (Negative); Nitrate Urine Negative (Negative); Protein Urine Neg (Negative); Urine Appearance Clear (CLEAR); Urine Color Yellow (Yellow); Urobilinogen Urine Norm (Negative); pH Urine 6.5 (5-7)
--- NOTE | 2022-10-29 21:49 | CTR_ITS ---
PROCEDURE INFORMATION: Exam: CT Abdomen And Pelvis With Contrast Exam date and time: 10/29/2022 10:02 PM Age: 52 years old Clinical indication: Abdominal pain; Localized; Right lower quadrant (rlq); Prior surgery; Surgery date: 6+ months; Surgery type: Ptca. Lumbar fusion. Ashwin; Patient HX: C/O rlq pain TECHNIQUE: Imaging protocol: Computed tomography of the abdomen and pelvis with contrast. Radiation optimization: All CT scans at this facility use at least one of these dose optimization techniques: automated exposure control; mA and/or kV adjustment per patient size (includes targeted exams where dose is matched to clinical indication); or iterative reconstruction. Contrast material: OMNI 350; Contrast volume: 100 ml; Contrast route: INTRAVENOUS (IV); REPORTING DATA: Count of CT and Cardiac NM exams in prior 12 months: This patient has received [address] and 0 known cardiac nuclear medicine studies in the 12 months prior to the current study. COMPARISON: CR XR hip RT 2-3V wo/w pel* [id number] 09/09/2022 1:02 PM RADIATION DOSE METRICS: Total DLP (mGy-cm): 967.67 FINDINGS: Tubes, catheters and devices: There is a right total hip replacement with prosthetic components in anatomic alignment. Liver: There is no focal abnormality within the liver. Gallbladder and bile ducts: The gallbladder is normal. Pancreas: The pancreas is normal. Spleen: The spleen demonstrates punctate calcifications, consistent with remote granulomatous organism exposure. There is moderate nonspecific splenomegaly. Adrenal glands: The adrenal glands are normal. Kidneys and ureters: The kidneys are normal. There is no evidence of hydronephrosis. There is no stone along the course of either ureter. Stomach and bowel: There is no evidence of colitis/diverticulitis. There is no evidence of intestinal obstruction. Appendix: A normal appendix is identified. Intraperitoneal space: There is no evidence of free intraperitoneal fluid. Vasculature: The aorta demonstrates mild atherosclerotic calcification. Incidentally noted is a normal variant circumaortic left renal vein. Lymph nodes: There is no evidence of lymphadenopathy. Urinary bladder: Unremarkable as visualized. Reproductive: Unremarkable as visualized. Bones/joints: There are extensive postsurgical changes in the lumbar spine with L3-L4 PLIF with pedicle screws in the pedicles and posterior metallic hardware and posterior bony fusion at L5-S1. There is instrumentation in the disc spaces at L3-L4, L4-L5 and L5-S1. No acute fracture is identified. Soft tissues: Unremarkable. CT/CT abdomen pelvis w con* [id number] IMPRESSION: No acute finding.
--- NOTE | 2022-10-29 21:50 | ED_ITS ---
HPI - Abdominal Pain General: Chief Complaint: Abdominal Pain Stated Complaint: lower abd pain sent by [facility] Time Seen by Provider: 10/29/22 20:51 Source: patient and family Mode of arrival: ambulatory Limitations: no limitations History of Present Illness: Patient was referred to the emergency department from [facility]. The patient was there because of concerns about abdominal pain. He apparently had approximately 2 days of right lower quadrant pain without radiation or migratio n. He denies any fevers or chills. He states he is not any nausea vomiting or diarrhea. He states the pain has been in the same location again as as per onset. He denies any known injury. He denies any dysuria, blood in his urine, pain in his scrotum. He has never had any abdominal surgeries. He has a history of diabetes. He does not have a history of renal colic or kidney stones. MD elicited complaint: abdominal pain Associated Symptoms: Denies chills, diarrhea, dysuria, fever(s) and vomiting Review of Systems Const: Denies: fever(s), chills or body aches Eyes: Denies: change in vision ENMT: Denies: throat pain, odynophagia, nasal congestion or nasal obstruction Card: Denies: chest pain, palpitations or irregular heart rhythm Resp: Denies: dyspnea, productive cough or non-productive cough GI: Reports: abdominal pain; Denies: vomiting or diarrhea : Denies: flank pain, difficulty urinating, dysuria, genital pain, testicular mass or scrotal swelling Musc: Reports: back pain; Denies: neck pain, extremity pain or extremity swelling Skin/Breast: Denies: rash or pruritus Neuro: Denies: headache(s), numbness in extremities or weakness in extremities Psych: Denies: anxiety or depression PFSH ED 2 PFSH: Medical History Atherosclerosis of coronary artery Diabetes Dyslipidemia HTN (hypertension) Obesity HIRA (obstructive sleep apnea) Surgical History Previous back surgery total of 6 back surgeries S/P PTCA (percutaneous transluminal coronary angioplasty) Social History Smoking and tobacco status: current every day smoker (chew) smokeless tobacco Second hand smoke exposure: No Alcohol intake: never Substance/Drug Use: never Marital status: Single Physical Exam Narrative: EXAM NARRATIVE: Is alert makes good eye contact answers questions appropriately. Appears to be comfortable. Const: COMMON NORMALS: no acute distress, patient oriented x3, healthy appearing and alert GENERAL APPEARANCE: cooperative and comfortable NUTRITIONAL APPEARANCE: overweight HENMT: COMMON NORMALS: normocephalic, atraumatic, Normal nasal mucous membr anes and turbinates present, moist oral mucous membranes and oropharynx normal HEAD & SCALP: normocephalic and atraumatic FACE & SINUS: normal facial exam NOSE: Normal nasal mucous membranes and turbinates present Eye: COMMON NORMALS: Equal, round and reactive pupils present, EOMs intact bilaterally and conjunctivae normal CONJUNCTIVA: Yes conjunctivae normal PUPIL: Yes Equal, round and reactive pupils present Neck/C-Spine: COMMON NORMALS: full ROM and no lymphadenopathy Chest: COMMONS NORMALS: normal inspection of the chest and normal palpation of entire chest wall Resp: COMMON NORMALS: normal respiratory effort, No retractions and clear to auscultation bilaterally AUSCULTATION: clear to auscultation bilaterally Cardio: COMMON NORMALS: regular rate, regular rhythm, No murmurs present (Cardio) and Peripheral pulses 2+ throughout RATE: regular rate RHYTHM: regular rhythm PERIPHERAL PULSES: Peripheral pulses 2+ throughout GI: COMMON NORMALS: No hepatosplenomegaly present and no masses PALPATION: Yes No hepatosplenomegaly present OTHER: Examination the abdomen reveals to be soft. He has mild tenderness at the right paramedian in the right lower quadrant. No rebound or guarding. No secondary signs of peritoneal irritation. : COMMON NORMALS: Yes normal external exam, Yes Testes normal and Yes scrotum normal MALE GROIN/PERINEUM EXAM: No hernia SCROTUM: Yes testes descended bilaterally, No inguinal hernia, No scrotal swelling and No scrotal mass Back/Pelvis: COMMON NORMALS: thoracic and lumbar spine normal to inspection, no thoracic nor lumbar tenderness, thoraco-lumbar ROM normal and straight leg raise negative bilaterally Extremity: COMMON NORMALS: normal to inspection, full ROM, capillary refill normal, no calf tenderness and no pedal edema Neuro: COMMON NORMALS: patient oriented x3, moves all extremities, no focal motor deficits and no sensory deficits noted SENSORIUM/ORIENTATION: Yes alert Psych: COMMON NORMALS: mental status grossly normal Skin: COMMON NORMALS: no rashes or lesions noted, no wounds and turgor normal GENERAL SKIN EXAM: no rashes or lesions noted and turgor normal Course Reevaluation(s): Reevaluation #1: The patient remains comfortable and stable. Reexamination reveals no evidence of peritoneal signs, surgical abdomen, other concerning findings. Discussed findings, limitations, return precautions with both he and his accompanying mother. Stable at this time for discharge. Time: 23:08 Vital Signs: Vital signs: Vital Signs Temperature 98.0 F 10/29/22 19:35 Pulse Rate 83 10/29/22 20:59 Respiratory Rate 17 10/29/22 20:59 Blood Pressure 129/61 10/29/22 20:59 Pulse Oximetry 93 10/29/22 20:59 Oxygen Delivery Me thod Room Air 10/29/22 20:59 MDM - Abdominal Pain Medical Decision Making Patient was referred to the emergency department by Skinny Medina because of 2 days of abdominal pain and concerned about possible appendicitis. The patient also has chronic low back pain and chronic hip pain. Has had a prior right hip replacement. He denies any fevers, vomiting, diarrhea exposure to infectious disease bad food exposure etc. Clinical examination revealed very minimal right-sided tenderness without any rebound guarding or peritoneal signs. No skin rashes or other findings. No hernias no testicular pain swelling or masses. Ancillary studies and imaging were obtained to ensure no evidence of a surgical abdomen, renal stone, kidney infection or other potential causes of his abdominal pain. Studies obtained were all reassuring. Lab work, urinalysis as well as imaging did not reveal any evidence of appendicitis, renal stone, bowel obstruction etc. This was all shared with the patient and mother. We discussed stability for discharge and observation at home with well delineated return precautions they both voiced understanding of our discussion. This may be referred pain from his chronic back and/or hip pain certainly could be an occult abdominal wall strain but again return was really enforced. Medical Records I reviewed the patient's medical records. Lab Data I reviewed the patient's lab results. 10/29/22 19:52 10/29/22 19:52 Labs/Radiology: Radiology Impressions Abdomen/Pelvis CT 10/29/22 21:49 IMPRESSION: No acute finding. Laboratory Results WBC 6.1 10^3/uL (4.0-10.0) 10/29/22 19:52 RBC 4.67 10^6/uL (4.1-5.3) 10/29/22 19:52 Hgb 13.3 g/dL (11.7-16.6) 10/29/22 19:52 Hct 40.2 % (42.0-52.0) L 10/29/22 19:52 MCV 86.1 fl (80-94) 10/29/22 19:52 MCH 28.5 pg (28.0-34.0) 10/29/22 19:52 MCHC 33.1 g/dL (30.0-36.0) 10/29/22 19:52 RDW 12.6 % (12.1-15.1) 10/29/22 19:52 Plt Count 177 10^3/cmm (130-400) 10/29/22 19:52 MPV 10.2 fL (7.4-10.4) 10/29/22 19:52 Neut % (Auto) 64.5 % 10/29/22 19:52 Lymph % (Auto) 20.2 % 10/29/22 19:52 [place] % (Auto) 7.0 % 10/29/22 19:52 Eos % (Auto) 7.0 % 10/29/22 19:52 Baso % (Auto) 0.8 % 10/29/22 19:52 Neut # (Auto) 3.93 10^3/uL (1.8-7.7) 10/29/22 19:52 Lymph # (Auto) 1.2 10^3/uL (0.8-4.8) 10/29/22 19:52 [place] # (Auto) 0.4 10^3/uL (0.2-0.9) 10/29/22 19:52 Eos # (Auto) 0.4 10^3/uL (0.0-0.8) 10/29/22 19:52 Baso # (Auto) 0.1 10^3/uL (0.0-0.1) 10/29/22 19:52 Nucleated RBC % (auto) 0 % 10/29/22 19: Nucleated RBCs # 0.0 /100WBC 10/29/22 19:52 Sodium 137 mmol/L (136-145) 10/29/22 19:52 Potassium 4.0 mmol/L (3.5-5.1) 10/29/22 19:52 Chloride 97 mmol/L (98-107) L 10/29/22 19:52 Carbon Dioxide 28 mmol/L (22-29) 10/29/22 19:52 Anion Gap 16.0 (5-19) 10/29/22 19:52 BUN 16 mg/dL (6-20) 10/29/22 19:52 Creatinine 0.7 mg/dL (0.7-1.2) 10/29/22 19:52 GFR Calculation 118.9 mL/min (90-130) 10/29/22 19:52 Glucose 217 mg/dL (65-115) H 10/29/22 19:52 Calculated Osmolality 292 mOsm/kg (285-295) 10/29/22 19:52 Calcium 9.4 mg/dL (8.5-10.5) 10/29/22 19:52 Total Bilirubin 0.3 mg/dL (0.15-1.2) 10/29/22 19:52 AST 16 U/L (0-40) 10/29/22 19:52 ALT 28 U/L (0-41) 10/29/22 19:52 Alkaline Phosphatase 79 U/L (40-130) 10/29/22 19:52 Total Protein 6.9 g/dL (6.6-8.7) 10/29/22 19:52 Albumin 4.5 g/dL (3.5-5.2) 10/29/22 19:52 Globulin 2.4 g/dL (1.3-4.6) 10/29/22 19:52 Lipase 8 U/L (13-60) L 10/29/22 19:52 Urine Color Yellow (Yellow) 10/29/22 21:09 Urine Appearance Clear (CLEAR) 10/29/22 21:09 Urine pH 6.5 (5-7) 10/29/22 21:09 Ur Specific [place] 1.010 (1.005-1.030) 10/29/22 21:09 Urine Protein Neg (Negative) 10/29/22 21:09 Urine Glucose (UA) 4+ (Normal) H 10/29/22 21:09 Urine Ketones Negative (Negative) 10/29/22 21: Urine Blood Neg (Negative) 10/29/22 21:09 Urine Nitrate Negative (Negative) 10/29/22 21:09 Urine Bilirubin Neg (Negative) 10/29/22 21:09 Urine Urobilinogen Norm mg/dL (Negative) 10/29/22 21:09 Ur Leukocyte Esterase Negative (Negative) 10/29/22 21:09 Discharge Plan Discharge Patient Disposition: Home Clinical Impression: Abdominal pain Condition: Stable Prescriptions: No Action Ozempic 1 mg/dose (2 mg/1.5 mL) pen injector See Rx Instructions .ROUTE .COMPLEX Rx Instructions: 2 mg subcutaneously WEEKLY on wednesday Tradjenta 5 mg tablet 5 mg PO DAILY metoprolol succinate 50 mg tablet extended release 24 hr 25 mg PO DAILY fluticasone propionate [Flonase Allergy Relief] 50 mcg/actuation spray,suspension 1 spray INTRANASAL DAILY Rx Instructions: administer into each nostril esomeprazole magnesium [Nexium] 40 mg capsule,delayed release(DR/EC) 40 mg PO BID cinnamon bark [Cinnamon] 500 mg capsule 1,000 mg PO BID metformin 1,000 mg tablet 1,000 mg PO BID Hold Instructions: Resume on 01/15/22. pregabalin [Lyrica] 75 mg capsule 75 mg PO BID nortriptyline 10 mg capsule 20 mg PO BEDTIME lisinopril-hydrochlorothiazide 20-25 mg tablet 1 tab PO DAILY aspirin 325 mg tablet 325 mg PO DAILY tizanidine 2 mg capsule 4 mg PO BID PRN (Reason: Pain) B-complex with vitamin C [Super B Complex-Vitamin C] Tablet 1 tab PO DAILY ascorbic acid (vitamin C) 1,000 mg tablet 500 mg PO DAILY Jenelle Dhillon U-300 Insulin 300 unit/mL (1.5 mL) insulin pen 45 unit SUBCUT DAILY melatonin 10 mg capsule 10 mg PO DAILY nitroglycerin 0.4 mg tablet, sublingual 0.4 mg sublingual Q5M PRN (Reason: chest pain) Qty: 25 2RF Rx Instructions: do not exceed 3 doses per episode oxycodone 5 mg tablet 5 mg PO Q4H PRN (Reason: pain) 7 Days Qty: 30 0RF diazepam [Valium] 5 mg tablet 5 mg PO ONCE PRN (Reason: anxiety) 1 Days Qty: 1 0RF hydrocodone-acetaminophen 5-325 mg tablet 1 tab PO TID PRN (Reason: pain) 30 Days Qty: 90 0RF gabapentin 600 mg tablet 600 mg PO TID 30 Days Qty: 90 0RF topiramate 50 mg tablet 50 mg PO BID 30 Days Qty: 60 0RF (DME) compression stockings See Rx Instructions .Route .MEDSUPPLY Qty: 1 0RF Rx Instructions: As directed atorvastatin 80 mg tablet 80 mg PO DAILY Qty: 90 3RF duloxetine [Cymbalta] 30 mg capsule,delayed release(DR/EC) 30 mg PO DAILY Qty: 30 0RF vitamin A-vitamin C-vit E-min Tablet 1 tab PO DAILY Farxiga 10 mg tablet 10 mg PO DAILY Naprosyn 500 mg tablet 500 mg PO BID PRN (Reason: pain) Qty: 20 0RF Discharge Orders: Discharge ED (Routine); Ordered 10/29/22 Ordered By: Jasvir Dumont Referrals: Cyrus Covarrubias MD [Primary Care Provider] - Discharge Diet: Usual diet Discharge Activity: Resume usual activity Patient Instructions: Abdominal Pain (ED), Opioid Safety, Pain Management Activity Restrictions/Additional Instructions: As we discussed while you are in the emergency department your evaluation and imaging today did not reveal any evidence that suggest bowel obstruction appendicitis kidney stone or other serious conditions at this time. However are sometimes when a early presentation of a medical condition can progress to a more serious condition therefore it is important that if you develop increasing or worsening or persistent abdominal pain, fever, vomiting, diarrhea or other concerns return to the emergency department for reevaluation. Coding Level of Care Code ED Credit Control Assistant for Rupa Reinoso
[2022-10-29] MEDS: iohexol 350 mg/mL 500 mL Btl (per mL) IV (22:14)
[2022-10-29] MEDS: sodium chloride 0.9% 1,000 ML 999 ML IV (22:23)
[2022-10-29 23:06] VITALS: BP 128/74; PULSE 82; RESP 18; O2SAT 96
--- NOTE | 2022-10-30 10:16 | PC.NURSE ---
Addendum entered by Alecia Campos 11/11/22 10:46: family independence case manager received the following message from the urology clinic regarding follow up appointment: Will need to go to another Urologist for BPH family independence case manager called patient and informed patient of this, returned case inspector offered to refer patient to Anika or Balwinder in [place]. Patient stated that he did not want referral sent to [place]. Addendum entered by Alecia Campos 11/10/22 14:25: Armando called returned case inspector back stating that the clinic could not see patient due to not being in network with patients insurance. family independence case manager called patient to inform him of this, patient stated that he did not want to go to [facility]. family independence case manager sent patients information to [facility] urology to see if clinic at [facility] would see patient. Addendum entered by Alecia Campos 11/03/22 15:34: Clinic received patients information, clinic will call patient with appointment information. Original Note: Patient seen in the ED and referred to Urology in [facility] for follow up for retention, BPH. Fax sent and clinic will call patient with an appt.
== END 2022-10-29 23:12 | disposition home or self-care (01) ==
PROVIDERS: Emergency Medicine; Emergency Provider Emergency Medicine; PCP Family Medicine
DX: R10.31 Right lower quadrant pain (principal); Z79.82 Long term (current) use of aspirin; Z79.84 Long term (current) use of oral hypoglycemic drugs; Z79.4 Long term (current) use of insulin; I25.10 Atherosclerotic heart disease of native coronary artery without angina pectoris; E11.9 Type 2 diabetes mellitus without complications; E78.5 Hyperlipidemia, unspecified; I10 Essential (primary) hypertension; F17.220 Nicotine dependence, chewing tobacco, uncomplicated
CPT/HCPCS: 36415; 74177; 80053; 81003; 83690; 85025; 96360; 99285; J7030; Q9967

== ENCOUNTER → 2022-11-04 10:04 | Outpatient (BNVA) | payer MEDICARE, MEDICAID, SELFPAY | PROVIDERS: PCP Family Medicine; Visit Provider Anesthesiology Pain Medicine | DX: M79.18 Myalgia, other site (principal); G89.29 Other chronic pain; M54.2 Cervicalgia; M54.9 Dorsalgia, unspecified | CPT/HCPCS: 20553; 99213; J1030; J3490 ==

== ENCOUNTER → 2022-11-13 09:47 | Outpatient (BNVA) | payer MEDICARE, MEDICAID, SELFPAY | PROVIDERS: PCP Family Medicine; Visit Provider Orthopaedic Surgery | DX: M25.551 Pain in right hip (principal) | CPT/HCPCS: 73502; 99213 ==

== ENCOUNTER → 2022-11-16 09:44 | Outpatient (BNVA) | payer MEDICARE, MEDICAID, SELFPAY | PROVIDERS: PCP Family Medicine; Visit Provider Anesthesiology Pain Medicine | DX: G89.29 Other chronic pain (principal); M51.16 Intervertebral disc disorders with radiculopathy, lumbar region; M96.1 Postlaminectomy syndrome, not elsewhere classified; G62.89 Other specified polyneuropathies; M54.2 Cervicalgia; Z96.641 Presence of right artificial hip joint | CPT/HCPCS: 99214 ==

== ENCOUNTER 2022-11-21 20:15 | Emergency (ER) | payer MEDICARE, MEDICAID, SELFPAY ==
[2022-11-21 20:32] VITALS: BP 109/68; PULSE 102; RESP 14; TEMP 36.6; O2SAT 97
--- NOTE | 2022-11-21 21:57 | ED_ITS ---
HPI - Extremity Problem General: Chief complaint: Extremity Problem,Nontraumatic Stated complaint: right leg pain Time Seen by Provider: 11/21/22 21:28 Source: patient Mode of arrival: ambulatory Limitations: no limitations History of Present Illness: Patient is a 52-year-old male who presents to ED today with a complaint of pain in his right hip and thigh. Patient states he has had this discomfort for many many months stating it started following a total hip arthroplasty. Patient states he has followed up with his orthopedic surgeon Dr. Huynh as well as Dr. Mcdonald with pain management. He is on multiple medications including opiates, muscle relaxers, steroids, and gabapentin for the discomfort. He has been referred to physical therapy and is waiting for this to start. Patient does not have any new complaints today. MD Complaint: extremity pain Onset (ago): month(s) Pain Consistency: constant Location: right and lower extremity Radiation: none Relieving factors: nothing Exacerbating factors: walking Associated symptoms: Reports no associated symptoms; Deny chest pain, fever(s) or rash Review of Systems Const: Denies: fever(s), chills, body aches, fatigue or malaise Card: Denies: chest pain Resp: Denies: dyspnea GI: Denies: abdominal pain : Denies: flank pain or dysuria Musc: Reports: back pain, extremity pain (R thigh) and joint pain (R hip); Denies: neck pain, extremity swelling, joint swelling, joint redness or joint warmth Skin/Breast: Denies: rash Neuro: Reports: difficulty walking; Denies: headache(s) [facility] ED PFSH: Medical History Atherosclerosis of coronary artery Diabetes Dyslipidemia HTN (hypertension) Obesity HIRA (obstructive sleep apnea) Surgical History Previous back surgery total of 6 back surgeries S/P PTCA (percutaneous transluminal coronary angioplasty) Social History Smoking and tobacco status: current every day smoker (chew) smokeless tobacco Second hand smoke exposure: No Alcohol intake: never Substance/Drug Use: never Marital status: Single Physical Exam Const: COMMON NORMALS: no acute distress, average body habitus, patient oriented x3, no limitations, healthy appearing, alert and well nourished Back/Pelvis: THORACIC SPINE/UPPER BACK: Yes normal to inspection, No thoracic spinal tenderness, No paraspinal muscle tenderness and No paraspinal muscle spasm PELVIS: Yes buttocks normal and Yes sciatic notch tenderness SACROILIAC JOINTS: Yes SI joint(s) abnormal SACRUM: no tenderness COCCYX: no tenderness Extremity: COMMON NORMALS: capillary refill normal, no joint enlargement, no clubbing, cyanosis or edema, no calf tenderness and no pedal edema GENERAL: Yes normal exam except as noted RIGHT LOWER EXTREMITY: Yes hip joint (some discomfort noted with ROM) Right hip: Yes neurovascular exam (normal) Neuro: COMMON NORMALS: patient oriented x3 SENSORIUM/ORIENTATION: Yes alert Course Vital Signs: Vital signs: Vital Signs Temperature 97.9 F 11/21/22 20:32 Pulse Rate 102 H 11/21/22 20:32 Respiratory Rate 14 11/21/22 22:30 Blood Pressure 109/68 11/21/22 20:32 Pulse Oximetry 99 11/21/22 22:30 Oxygen Delivery Me thod Room Air 11/21/22 20:32 MDM - Extremity (Nontraumatic) Medical Decision Making Patient has had multiple evaluations for this same discomfort including by Dr. Huynh as well as pain management Dr. Mcdonald. Looking at previous documentation it looks like he has also had MRI of his lumbar spine as well as nerve conduction studies. It looks like he has been referred to neurology as well. He is on multiple medications for this discomfort. Ultimately from an emergency department standpoint I do not know what additional treatment or options to offer for patient. He was given a shot of IM Toradol and dexamethasone which he seems satisfied with. Certainly I do not feel there is anything emergent in nature to explain his discomfort thus he will be allowed discharge at this time. Discharge Plan Discharge Patient Disposition: Home Clinical Impression: Status post right hip replacement, Chronic pain of right lower extremity Condition: Stable Prescriptions: No Action Ozempic 1 mg/dose (2 mg/1.5 mL) pen injector See Rx Instructions .ROUTE .COMPLEX Rx Instructions: 2 mg subcutaneously WEEKLY on wednesday Tradjenta 5 mg tablet 5 mg PO DAILY metoprolol succinate 50 mg tablet extended release 24 hr 25 mg PO DAILY fluticasone propionate [Flonase Allergy Relief] 50 mcg/actuation spra y,suspension 1 spray INTRANASAL DAILY Rx Instructions: administer into each nostril esomeprazole magnesium [Nexium] 40 mg capsule,delayed release(DR/EC) 40 mg PO BID cinnamon bark [Cinnamon] 500 mg capsule 1,000 mg PO BID metformin 1,000 mg tablet 1,000 mg PO BID Hold Instructions: Resume on 01/15/22. pregabalin [Lyrica] 75 mg capsule 75 mg PO BID nortriptyline 10 mg capsule 20 mg PO BEDTIME lisinopril-hydrochlorothiazide 20-25 mg tablet 1 tab PO DAILY aspirin 325 mg tablet 325 mg PO DAILY tizanidine 2 mg capsule 4 mg PO BID PRN (Reason: Pain) B-complex with vitamin C [Super B Complex-Vitamin C] Tablet 1 tab PO DAILY ascorbic acid (vitamin C) 1,000 mg tablet 500 mg PO DAILY Jenelle Dhillon U-300 Insulin 300 unit/mL (1.5 mL) insulin pen 45 unit SUBCUT DAILY melatonin 10 mg capsule 10 mg PO DAILY nitroglycerin 0.4 mg tablet, sublingual 0.4 mg sublingual Q5M PRN (Reason: chest pain) Qty: 25 2RF Rx Instructions: do not exceed 3 doses per episode oxycodone 5 mg tablet 5 mg PO Q4H PRN (Reason: pain) 7 Days Qty: 30 0RF diazepam [Valium] 5 mg tablet 5 mg PO ONCE PRN (Reason: anxiety) 1 Days Qty: 1 0RF gabapentin 600 mg tablet 600 mg PO TID 30 Days Qty: 90 0RF hydrocodone-acetaminophen 5-325 mg tablet 1 tab PO TID PRN (Reason: pain) 30 Days Qty: 90 0RF topiramate 100 mg tablet 100 mg PO BID Qty: 60 0RF (DME) compression stockings See Rx Instructions .Route .MEDSUPPLY Qty: 1 0RF Rx Instructions: As directed atorvastatin 80 mg tablet 80 mg PO DAILY Qty: 90 3RF duloxetine [Cymbalta] 30 mg capsule,delayed release(DR/EC) 30 mg PO DAILY Qty: 30 0RF vitamin A-vitamin C-vit E-min Tablet 1 tab PO DAILY Farxiga 10 mg tablet 10 mg PO DAILY Naprosyn 500 mg tablet 500 mg PO BID PRN (Reason: pain) Qty: 20 0RF Discharge Orders: Discharge ED (Routine); Ordered 11/21/22 Ordered By: Mackenzie Shook Referrals: Cyrus Covarrubias MD [Primary Care Provider] - Activity Restrictions/Additional Instructions: As we discussed I would like you to continue to follow-up with Dr. Huynh and Dr. Mcdonald for management of your right leg pain. Scanning through your medications-it looks like you are on several medications including opiate pain medications, anti-inflammatories, muscle relaxers, and nerve medications. I do not know anything to add further from an ED standpoint. Again please discuss any further pain concerns with your custom motorcycle painter. Coding Level of Care Code ED Commercial Maintenance Technician for Rupa Reinoso
[2022-11-21] MEDS: dexamethasone 10 mg/mL INJ 8 MG IM (22:28)
[2022-11-21] MEDS: ketorolac 60 mg/2 mL INJ IM (22:28)
[2022-11-21 22:30] VITALS: RESP 14; O2SAT 99
== END 2022-11-21 22:31 | disposition home or self-care (01) ==
PROVIDERS: Emergency Provider Physician Assistant; PCP Family Medicine
DX: G89.29 Other chronic pain (principal); M79.604 Pain in right leg; Z96.641 Presence of right artificial hip joint; Z79.82 Long term (current) use of aspirin; Z79.4 Long term (current) use of insulin; Z79.84 Long term (current) use of oral hypoglycemic drugs; I25.10 Atherosclerotic heart disease of native coronary artery without angina pectoris; E11.9 Type 2 diabetes mellitus without complications; E78.5 Hyperlipidemia, unspecified; I10 Essential (primary) hypertension; F17.229 Nicotine dependence, chewing tobacco, with unspecified nicotine-induced disorders
CPT/HCPCS: 96372; 99284; J1100; J1885

== ENCOUNTER 2022-12-02 06:00 | Outpatient (RCR) | payer MEDICARE, MEDICAID, SELFPAY | END 2022-12-04 23:59 | disposition home or self-care (01) | LOC: SPT 06:00 | PROVIDERS: PCP Family Medicine; Visit Provider Family Medicine | DX: M25.551 Pain in right hip (principal) | CPT/HCPCS: 97162 ==

== ENCOUNTER 2022-12-05 06:00 | Outpatient (RCR) | payer MEDICARE, MEDICAID, SELFPAY | END 2022-12-25 23:59 | disposition home or self-care (01) | LOC: SPT 06:00 | PROVIDERS: PCP Family Medicine; Visit Provider Family Medicine | DX: M25.551 Pain in right hip (principal) | CPT/HCPCS: 97110 ==

== ENCOUNTER → 2022-12-21 11:05 | Outpatient (BNVA) | payer MEDICARE, MEDICAID, SELFPAY | PROVIDERS: PCP Family Medicine; Visit Provider Anesthesiology Pain Medicine | DX: G89.29 Other chronic pain (principal); M51.16 Intervertebral disc disorders with radiculopathy, lumbar region; M96.1 Postlaminectomy syndrome, not elsewhere classified; M54.2 Cervicalgia; Z96.641 Presence of right artificial hip joint; G62.89 Other specified polyneuropathies | CPT/HCPCS: 99213 ==

== ENCOUNTER → 2023-01-26 10:40 | Outpatient (BNVA) | payer MEDICARE, MEDICAID, SELFPAY | PROVIDERS: PCP Family Medicine; Visit Provider Anesthesiology Pain Medicine | DX: G62.89 Other specified polyneuropathies (principal); M51.16 Intervertebral disc disorders with radiculopathy, lumbar region; M96.1 Postlaminectomy syndrome, not elsewhere classified; M54.2 Cervicalgia; G89.29 Other chronic pain; Z96.641 Presence of right artificial hip joint | CPT/HCPCS: 99213; 99214 ==

== ENCOUNTER → 2023-02-01 13:46 | Outpatient (BNVA) | payer MEDICARE, MEDICAID, SELFPAY | PROVIDERS: PCP Family Medicine; Visit Provider Surgery | DX: R11.2 Nausea with vomiting, unspecified (principal); K21.9 Gastro-esophageal reflux disease without esophagitis; R10.10 Upper abdominal pain, unspecified | CPT/HCPCS: 99204 ==

== ENCOUNTER → 2023-02-16 13:00 | Outpatient (BNVA) | payer MEDICARE, MEDICAID, SELFPAY | PROVIDERS: PCP Family Medicine; Visit Provider Internal Medicine | DX: E11.9 Type 2 diabetes mellitus without complications (principal); Z79.4 Long term (current) use of insulin; E78.5 Hyperlipidemia, unspecified; I10 Essential (primary) hypertension; Z98.61 Coronary angioplasty status; F17.220 Nicotine dependence, chewing tobacco, uncomplicated | CPT/HCPCS: 99214 ==

== ENCOUNTER → 2023-02-18 10:09 | Outpatient (BNVA) | payer MEDICARE, MEDICAID, SELFPAY | PROVIDERS: PCP Family Medicine; Visit Provider Anesthesiology Pain Medicine | DX: M51.16 Intervertebral disc disorders with radiculopathy, lumbar region (principal); M96.1 Postlaminectomy syndrome, not elsewhere classified; M54.2 Cervicalgia; G89.29 Other chronic pain; G62.89 Other specified polyneuropathies; Z96.641 Presence of right artificial hip joint; M25.551 Pain in right hip | CPT/HCPCS: 99214 ==

== ENCOUNTER 2023-02-26 07:27 | Day surgery (SDC) | payer MEDICARE, MEDICAID, SELFPAY ==
[2023-02-26 07:55] VITALS: BMI 31.4
[2023-02-26 08:06] VITALS: BP 145/70; PULSE 88; RESP 18; TEMP 35.6; O2SAT 95
[2023-02-26] MEDS: sodium chloride 0.9% 1,000 ML 30 ML IV (08:11)
[2023-02-26 08:12] LABS: Glucose Point of Care 181 mg/dL (70-110)
--- NOTE | 2023-02-26 08:19 | ANES.PREANE2 ---
Pre-Anesthetic Assessment Height/Weight: Height 1.75 m Weight 96.615 kg Temp Pulse Resp BP Pulse Ox O2 Del Method 96.1 F L 88 18 145/70 95 Room Air 02/26/23 08:06 02/26/23 08:06 02/26/23 08:06 02/26/23 08:06 02/26/23 08:06 02/26/23 08:06 Preop Diagnosis: gerd, nausea vomitting Operation Date: 02/26/23 08:30 Proposed Procedures p EGD 26976,R11.2<k21.9(Not Applicable) - Tristen Verduzco MD Was Beta Varun taken within 24 hours: Yes Was Clonidine taken within 24 hours: N/A Last intake: Intake Last Liquid Date 02/25/23 Last Liquid Time 23:00 Last Solid Date 02/25/23 Last Solid Time 20:00 Social No alcohol and No tobacco denies recreational Exam alert, oriented x 3, clear to auscultation bilaterally and regular rate & rhythm Airway Submandibular: within normal limits Cervical ROM: within normal limits Mallampati: Class I Dentition: caps History/ROS No significant history except as noted Pulmonary Sleep Apnea CV/HEM Stable Angina, Coronary Artery Disease and Hypertension over 1 year ago. saw cardiology Dr Bell two weeks ago and will return in 6 months None reported Hepatic None reported GI Gastroesophageal Reflux Disease Metabolic Diabetes Mellitus ozempic over 1 week ago [facility] None reported Neuropsych None reported Anesthetic Plan ASA status: 3 Anesthesia: Anesthesia Evaluation and MAC Risk of > 500 ml blood loss (7ml/kg in children): Yes, adequate IV access and fluids planned Medications/Allergies Home Medications Medication Instructions Recorded Confirmed Last Taken Type aspirin 325 mg tablet 325 mg PO DAILY 11/29/19 02/24/23 02/23/23 History cinnamon bark 500 mg capsule 1,000 mg PO BID 11/29/19 02/24/23 02/25/23 History (Cinnamon) esomeprazole magnesium 40 mg 40 mg PO BID 11/29/19 02/24/23 02/25/23 History capsule,delayed release (Nexium) fluticasone propionate 50 1 spray intranasal DAILY 11/29/19 02/24/23 02/25/23 History mcg/actuation nasal spray,suspension (Flonase Allergy Relief) linagliptin 5 mg tablet (Tradjenta) 5 mg PO DAILY 11/29/19 02/24/23 02/25/23 History lisinopril 20 1 tab PO DAILY 11/29/19 02/24/23 02/25/23 History mg-hydrochlorothiazide 25 mg tablet metformin 1,000 mg tablet 1,000 mg PO BID 11/29/19 02/24/23 02/25/23 History metoprolol succinate 50 mg 25 mg PO DAILY 11/29/19 02/24/23 02/26/23 History tablet,extended release 24 hr nortriptyline 10 mg capsule 20 mg PO BEDTIME 11/29/19 02/24/23 02/25/23 History semaglutide 1 mg/dose (2 mg/1.5 See Rx Instructions .Route .COMPLEX 11/29/19 02/24/23 02/15/23 History mL) subcutaneous pen injector (Ozempic) B-complex with vitamin C (Super B 1 tab PO DAILY 06/13/20 02/24/23 02/24/23 History Complex-Vitamin C tablet) ascorbic acid (vitamin C) 1,000 mg 500 mg PO DAILY 06/13/20 02/24/23 02/25/23 History tablet melatonin 10 mg capsule 10 mg PO QPM 12/12/20 02/24/23 02/25/23 History tizanidine 2 mg capsule 4 mg PO BID PRN Pain 03/20/21 02/24/23 02/25/23 History nitroglycerin 0.4 mg sublingual 0.4 mg sublingual Q5M PRN chest 01/05/22 02/26/23 Unknown Rx tablet pain #25 tabs dapagliflozin propanediol 10 mg 10 mg PO DAILY 03/09/22 02/24/23 02/25/23 History tablet (Farxiga) vitamin A-vitamin C-vit E-min 1 tab PO DAILY 03/09/22 02/24/23 02/25/23 History tablet atorvastatin 80 mg tablet 80 mg PO DAILY #90 tabs 06/29/22 02/24/23 02/25/23 Rx insulin glargine U-300 conc 300 50 unit SUBCUT DAILY 09/08/22 02/24/23 02/25/23 History unit/mL (1.5 mL) subcutaneous pen (Jenelle Dhillon U-300 Insulin) gabapentin 600 mg tablet 600 mg PO TID 30 days #90 tabs 10/14/22 02/24/23 02/25/23 Rx naproxen 500 mg tablet (Naprosyn) 500 mg PO BID PRN pain #20 tabs 10/15/22 02/26/23 Unknown Rx topiramate 100 mg tablet 100 mg PO BID Chronic pain #60 tabs 01/26/23 02/26/23 Unknown Rx hydrocodone 5 mg-acetaminophen 325 1 tab PO TID PRN pain 30 days #90 02/18/23 02/24/23 02/24/23 Rx mg tablet tabs duloxetine 30 mg capsule,delayed 60 mg PO DAILY neuropathy 02/24/23 02/24/23 02/25/23 History release (Cymbalta) Allergies Allergy/AdvReac Type Severity Reaction Status Date / Time sulfamethoxazole Allergy Intermediate ALGY-Rash Verified 02/26/23 07:57 [From Bactrim] trimethoprim [From Bactrim] Allergy Intermediate ALGY-Rash Verified 02/26/23 07:57 Current Medications Generic Name Dose Route Start Last Admin Trade Name Freq PRN Reason Stop Dose Admin Sodium Chloride 1,000 mls @ 30 mls/hr 02/26/23 07:45 02/26/23 08:11 Sodium Chloride 0.9% IV 02/27/23 07:44 30 mls/hr .Q24H NITISH Administration PFSH Anesthesia Medical History Atherosclerosis of coronary artery Diabetes Dyslipidemia HTN (hypertension) Obesity HIRA (obstructive sleep apnea) Surgical History Previous back surgery total of 6 back surgeries S/P PTCA (percutaneous transluminal coronary angioplasty) Social History Smoking and tobacco status: current every day smoker (chew) smokeless tobacco Second hand smoke exposure: No Alcohol intake: never Substance/Drug Use: never Marital status: Single Data Anesthesia Cardiac Studies: Echocardiogram 01/02/22 Sestamibi Stress Test (Cardiology) 12/30/21
--- NOTE | 2023-02-26 08:27 | P.HPUD_ITS ---
Surgery/Procedure H&P Update DATE OF PROCEDURE: February 26, 2023 DATE H&P PERFORMED: 02/01/23 H&P UPDATE INFORMATION: I have reviewed H&P completed within last 30 days, I have examined patient prior to procedure, No changes to prior documentation and H&P is in [facility] EMR on date indicated PREOP DIAGNOSIS: gerd, nausea vomitting PLANNED PROCEDURE: Operation Date: 02/26/23 08:30 Proposed Procedures p EGD [id number],R11.2<k21.9(Not Applicable) - Tristen Verduzoc MD
[2023-02-26 08:49] VITALS: BP 109/64; PULSE 83; RESP 16; TEMP 36.6; O2SAT 97
[2023-02-26 09:00] VITALS: BP 109/67; PULSE 81; RESP 16; O2SAT 95
== END 2023-02-26 09:21 | disposition home or self-care (01) ==
PROVIDERS: PCP Family Medicine; Visit Provider Surgery
PROC: 0DJ08ZZ Inspection of Upper Intestinal Tract, Via Natural or Artificial Opening Endoscopic (ICD-10-PCS; CPT 43235; principal; 2023-02-26 08:30)
DX: R11.2 Nausea with vomiting, unspecified (principal); K21.9 Gastro-esophageal reflux disease without esophagitis; G47.30 Sleep apnea, unspecified; I25.10 Atherosclerotic heart disease of native coronary artery without angina pectoris; I10 Essential (primary) hypertension; E11.9 Type 2 diabetes mellitus without complications; Z79.82 Long term (current) use of aspirin; Z79.4 Long term (current) use of insulin; G47.33 Obstructive sleep apnea (adult) (pediatric); E66.9 Obesity, unspecified; Z68.31 Body mass index [BMI] 31.0-31.9, adult; F17.220 Nicotine dependence, chewing tobacco, uncomplicated; K31.89 Other diseases of stomach and duodenum; K29.70 Gastritis, unspecified, without bleeding
CPT/HCPCS: 36416; 43239; 82962; 88305; 88342; J2704; J3010; J7030

== ENCOUNTER → 2023-03-11 14:40 | Outpatient (BNVA) | payer MEDICARE, MEDICAID, SELFPAY | PROVIDERS: PCP Family Medicine; Visit Provider Surgery | DX: K21.9 Gastro-esophageal reflux disease without esophagitis (principal); Z09 Encounter for follow-up examination after completed treatment for conditions other than malignant neoplasm | CPT/HCPCS: 99213 ==

== ENCOUNTER → 2023-03-18 09:58 | Outpatient (BNVA) | payer MEDICARE, MEDICAID, SELFPAY | PROVIDERS: PCP Family Medicine; Visit Provider Anesthesiology Pain Medicine | DX: G62.89 Other specified polyneuropathies (principal); M51.16 Intervertebral disc disorders with radiculopathy, lumbar region; M96.1 Postlaminectomy syndrome, not elsewhere classified; M54.2 Cervicalgia; M54.9 Dorsalgia, unspecified; G89.29 Other chronic pain; Z96.641 Presence of right artificial hip joint | CPT/HCPCS: 99214 ==

== ENCOUNTER 2023-03-22 07:53 | Outpatient (CLI) | payer MEDICARE, MEDICAID, SELFPAY ==
--- NOTE | 2023-03-22 08:00 | NM_ITS ---
WS: [id number] NUCLEAR MEDICINE GASTRIC STUDY CLINICAL INFORMATION: GERD TECHNIQUE: Following oral ingestion of cooked egg mixed with 0.96 mCi technetium 99m sulfur colloid, anterior images of the stomach were obtained over the course of 90 minutes. Activity curve was perfor med over the course of 90 minutes with linear regression analysis. COMPARISON: None. FINDINGS: Oral ingestion of cooked egg mixture Delayed T1 half emptying 151 minutes (normal 45 to 110 minutes) 37% emptying at 1 hour 42% emptying at 2 hours IMPRESSION: Delayed gastric emptying *Normal median T1 half 90 minutes for solid egg meal (45-110 minutes). Delayed gastric retention is defined as 90% retained at 1 hour, 60% at 2 hours, 30% at 3 hours, and 10% at 4 hours (normal percent gastric retention is 37-90% at 1 hour, 30-60% at 2 hours, and 0-10% a t 4 hours).
== END 2023-03-22 07:54 | disposition home or self-care (01) ==
LOC: RAD 07:54
PROVIDERS: PCP Family Medicine; Visit Provider Surgery
DX: K21.9 Gastro-esophageal reflux disease without esophagitis (principal); K30 Functional dyspepsia
CPT/HCPCS: 78264; A9541

== ENCOUNTER → 2023-04-08 12:57 | Outpatient (BNVA) | payer MEDICARE, MEDICAID, SELFPAY | PROVIDERS: PCP Family Medicine; Visit Provider Surgery | DX: Z09 Encounter for follow-up examination after completed treatment for conditions other than malignant neoplasm (principal) | CPT/HCPCS: 99213 ==

== ENCOUNTER → 2023-04-15 10:17 | Outpatient (BNVA) | payer MEDICARE, MEDICAID, SELFPAY | PROVIDERS: PCP Family Medicine; Visit Provider Anesthesiology Pain Medicine | DX: M51.16 Intervertebral disc disorders with radiculopathy, lumbar region (principal); M96.1 Postlaminectomy syndrome, not elsewhere classified; G62.89 Other specified polyneuropathies; G89.29 Other chronic pain; Z96.641 Presence of right artificial hip joint; M54.2 Cervicalgia | CPT/HCPCS: 99214 ==

== ENCOUNTER → 2023-05-20 12:36 | Outpatient (BNVA) | payer MEDICARE, MEDICAID, SELFPAY | PROVIDERS: PCP Family Medicine; Visit Provider Surgery | DX: K31.84 Gastroparesis (principal) | CPT/HCPCS: 99213 ==

== ENCOUNTER → 2023-05-24 13:54 | Outpatient (BNVA) | payer MEDICARE, MEDICAID, SELFPAY | PROVIDERS: PCP Family Medicine; Visit Provider Specialist | DX: R22.31 Localized swelling, mass and lump, right upper limb (principal); M67.431 Ganglion, right wrist | CPT/HCPCS: 73110; 99203 ==

== ENCOUNTER 2023-06-24 12:19 | Outpatient (CLI) | payer MEDICARE, MEDICAID, SELFPAY ==
--- NOTE | 2023-06-24 13:00 | MR_ITS ---
WS: [id number] EXAMINATION: MR wrist RT wo con* [id number] ORDER DATE: 06/24/2023 12:58 PM COMPARISON: None. HISTORY: right wrist cyst/mass CONTRAST: None. TECHNIQUE: Axial T1, axial T2 fat sat, coronal T1, coronal proton density fat sat, coronal STIR, annalisa nal 3D, and sagittal T1 performed. FINDINGS: Some images degraded by motion artifact. Moderate degenerative narrowing of the radiocarpal joint. Degenerative arthritis with subchondral cys tic change involving the carpal bones. Normal bone marrow signal in the scaphoid and lunate. Distal u auto parker is normal in appearance. Small amount of fluid in the DRUJ. Tenosynovitis flexor carpi radialis. Normal carpal tunnel. Normal extensor retinaculum. Tiny ganglion cyst along the dorsal wrist overlyin g the hamate. Tiny ganglion cyst measures 5 x 3 mm. Additional tiny 3 mm ganglion cyst interposed bet ween the fourth and fifth proximal metacarpals Normal extensor carpi ulnaris. Proximal metacarpals are normal in appearance. Normal TFCC. No other s uspicious findings. IMPRESSION: Some images degraded by motion artifact. 1. Tiny ganglion cyst along the dorsal wrist overlying the hamate. Tiny ganglion cyst measures 5 x 3 mm. 2. Additional tiny 3 mm ganglion cyst interposed between the fourth and fifth proximal metacarpals 3. Small amount of fluid in the DRUJ. 4. Tenosynovitis flexor carpi radialis. 5. Moderate degenerative arthritis at the radiocarpal articulation. 6. Moderate degenerative arthritis involving the carpal bones with subchondral cystic change. 7. No other acute findings.
== END 2023-06-24 12:20 | disposition home or self-care (01) ==
LOC: RAD 12:22
PROVIDERS: PCP Family Medicine; Visit Provider Specialist
DX: M67.431 Ganglion, right wrist (principal); M67.441 Ganglion, right hand; M19.031 Primary osteoarthritis, right wrist; M65.831 Other synovitis and tenosynovitis, right forearm; R22.31 Localized swelling, mass and lump, right upper limb; G89.29 Other chronic pain; M51.16 Intervertebral disc disorders with radiculopathy, lumbar region; M96.1 Postlaminectomy syndrome, not elsewhere classified; G62.89 Other specified polyneuropathies; M54.2 Cervicalgia; Z96.641 Presence of right artificial hip joint
CPT/HCPCS: 73221; 99214

== ENCOUNTER → 2023-06-30 09:45 | Outpatient (BNVA) | payer MEDICARE, MEDICAID, SELFPAY | PROVIDERS: PCP Family Medicine; Visit Provider Specialist | DX: M25.531 Pain in right wrist | CPT/HCPCS: 99214 ==

== ENCOUNTER → 2023-07-12 14:57 | Outpatient (BNVA) | payer MEDICARE, MEDICAID, SELFPAY | PROVIDERS: PCP Family Medicine; Visit Provider Anesthesiology Pain Medicine | DX: M70.61 Trochanteric bursitis, right hip (principal); G89.29 Other chronic pain; M51.16 Intervertebral disc disorders with radiculopathy, lumbar region; M25.551 Pain in right hip; M54.2 Cervicalgia; G62.89 Other specified polyneuropathies; Z96.641 Presence of right artificial hip joint; M96.1 Postlaminectomy syndrome, not elsewhere classified; Y93.9 Activity, unspecified | CPT/HCPCS: 20610; 99214; J1030; J3490 ==

== ENCOUNTER → 2023-07-27 09:41 | Outpatient (BNVA) | payer MEDICARE, MEDICAID, SELFPAY | PROVIDERS: PCP Family Medicine; Visit Provider Anesthesiology Pain Medicine | DX: M51.16 Intervertebral disc disorders with radiculopathy, lumbar region (principal); M96.1 Postlaminectomy syndrome, not elsewhere classified; G62.89 Other specified polyneuropathies; M54.2 Cervicalgia; G89.29 Other chronic pain; Z96.641 Presence of right artificial hip joint; M25.551 Pain in right hip | CPT/HCPCS: 99213 ==

== ENCOUNTER → 2023-08-17 10:04 | Outpatient (BNVA) | payer MEDICARE, MEDICAID, SELFPAY | PROVIDERS: PCP Family Medicine; Visit Provider Surgery | DX: K21.9 Gastro-esophageal reflux disease without esophagitis (principal); K31.84 Gastroparesis; Z12.11 Encounter for screening for malignant neoplasm of colon; E11.9 Type 2 diabetes mellitus without complications; E78.5 Hyperlipidemia, unspecified; I10 Essential (primary) hypertension; Z98.61 Coronary angioplasty status; Z72.0 Tobacco use | CPT/HCPCS: 99024; 99213 ==

== ENCOUNTER → 2023-08-26 09:36 | Outpatient (BNVA) | payer MEDICARE, MEDICAID, SELFPAY | PROVIDERS: PCP Family Medicine; Visit Provider Anesthesiology Pain Medicine | DX: M51.16 Intervertebral disc disorders with radiculopathy, lumbar region (principal); M96.1 Postlaminectomy syndrome, not elsewhere classified; M54.2 Cervicalgia; G89.29 Other chronic pain; M25.551 Pain in right hip; G62.89 Other specified polyneuropathies; Z96.641 Presence of right artificial hip joint | CPT/HCPCS: 99213 ==

== ENCOUNTER → 2023-09-27 08:49 | Outpatient (BNVA) | payer MEDICARE, MEDICAID, SELFPAY | PROVIDERS: PCP Family Medicine; Visit Provider Anesthesiology Pain Medicine | DX: Z96.641 Presence of right artificial hip joint (principal); G62.89 Other specified polyneuropathies; M51.16 Intervertebral disc disorders with radiculopathy, lumbar region; M96.1 Postlaminectomy syndrome, not elsewhere classified; M54.2 Cervicalgia; G89.29 Other chronic pain; M25.551 Pain in right hip | CPT/HCPCS: 99214 ==

== ENCOUNTER → 2023-09-28 09:39 | Outpatient (BNVA) | payer MEDICARE, MEDICAID, SELFPAY | PROVIDERS: PCP Family Medicine; Referring Provider Specialist; Visit Provider Specialist | DX: G56.03 Carpal tunnel syndrome, bilateral upper limbs (principal); G56.23 Lesion of ulnar nerve, bilateral upper limbs | CPT/HCPCS: 95910; 95911 ==

== ENCOUNTER → 2023-10-27 09:17 | Outpatient (BNVA) | payer MEDICARE, MEDICAID, SELFPAY | PROVIDERS: PCP Family Medicine; Visit Provider Anesthesiology Pain Medicine | DX: M51.16 Intervertebral disc disorders with radiculopathy, lumbar region (principal); M96.1 Postlaminectomy syndrome, not elsewhere classified; M54.2 Cervicalgia; G89.29 Other chronic pain; G56.03 Carpal tunnel syndrome, bilateral upper limbs; G56.23 Lesion of ulnar nerve, bilateral upper limbs | CPT/HCPCS: 99214 ==

== ENCOUNTER → 2023-11-22 09:04 | Outpatient (BNVA) | payer MEDICARE, MEDICAID, SELFPAY | PROVIDERS: PCP Family Medicine; Visit Provider Anesthesiology Pain Medicine | DX: M51.16 Intervertebral disc disorders with radiculopathy, lumbar region (principal); M96.1 Postlaminectomy syndrome, not elsewhere classified; M54.2 Cervicalgia; G89.29 Other chronic pain; G56.03 Carpal tunnel syndrome, bilateral upper limbs; G56.23 Lesion of ulnar nerve, bilateral upper limbs | CPT/HCPCS: 99214 ==

== ENCOUNTER 2023-11-25 05:33 | Day surgery (SDC) | payer MEDICARE, MEDICAID, SELFPAY ==
--- NOTE | 2023-11-25 06:02 | W.PM.OPSFHP ---
Same Day Surgery H&P Indication for Procedure/HPI DATE OF PROCEDURE: November 25, 2023 CHIEF COMPLAINT/INDICATIONFOR SURGICAL PROCEDURE: need for screening colonoscopy PREOP DIAGNOSIS: need for screening colonoscopy PLANNED PROCEDURE: Operation Date: 11/25/23 07:00 Proposed Procedures p Colonoscopy(Not Applicable) - Tristen Verduzco MD Medications/Allergies* Home Medications Medication Instructions Recorded Confirmed Type aspirin 325 mg tablet 325 mg PO DAILY 11/29/19 11/23/23 History cinnamon bark 500 mg capsule 1,000 mg PO BID 11/29/19 11/23/23 History (Cinnamon) esomeprazole magnesium 40 mg 40 mg PO BID 11/29/19 11/23/23 History capsule,delayed release (Nexium) fluticasone propionate 50 1 spray intranasal DAILY 11/29/19 11/23/23 History mcg/actuation nasal spray,suspension (Flonase Allergy Relief) linagliptin 5 mg tablet (Tradjenta) 5 mg PO DAILY 11/29/19 11/23/23 History lisinopril 20 1 tab PO DAILY 11/29/19 11/23/23 History mg-hydrochlorothiazide 25 mg tablet metformin 1,000 mg tablet 1,000 mg PO BID 11/29/19 11/23/23 History metoprolol succinate 50 mg 25 mg PO DAILY 11/29/19 11/23/23 History tablet,extended release 24 hr nortriptyline 10 mg capsule 20 mg PO BEDTIME 11/29/19 11/23/23 History semaglutide 1 mg/dose (2 mg/1.5 See Rx Instructions .Route .COMPLEX 11/29/19 11/23/23 History mL) subcutaneous pen injector (Ozempic) B-complex with vitamin C (Super B 1 tab PO DAILY 06/13/20 11/23/23 History Complex-Vitamin C tablet) ascorbic acid (vitamin C) 1,000 mg 500 mg PO DAILY 06/13/20 11/23/23 History tablet melatonin 10 mg capsule 10 mg PO QPM 12/12/20 11/23/23 History dapagliflozin propanediol 10 mg 10 mg PO DAILY 03/09/22 11/23/23 History tablet (Farxiga) vitamin A-vitamin C-vit E-min 1 tab PO DAILY 03/09/22 11/23/23 History tablet duloxetine 30 mg capsule,delayed 60 mg PO DAILY neuropathy 02/24/23 11/23/23 History release (Cymbalta) cholecalciferol (vitamin D3) 10 10 mcg PO DAILY 05/24/23 11/24/23 History mcg (400 unit) capsule insulin glargine U-300 conc 300 54 unit SUBCUT DAILY 08/17/23 11/23/23 History unit/mL (1.5 mL) subcutaneous pen (Toujeo SoloStar U-300 Insulin) lisinopril 10 mg tablet 10 mg PO DAILY 08/17/23 11/23/23 History Allergies/Adverse Reactions Allergy/AdvReac Type Severity Reaction Status Date / Time sulfamethoxazole Allergy Intermediate ALGY-Rash Verified 11/22/23 09:31 [From Bactrim] trimethoprim [From Bactrim] Allergy Intermediate ALGY-Rash Verified 11/22/23 09:31 Pertinent History/Comorbid Conditions* Medical History (Updated 09/28/23 @ 12:04 by Niru Camargo MD) Atherosclerosis of coronary artery Obesity HIRA (obstructive sleep apnea) HTN (hypertension) Diabetes Dyslipidemia Surgical History (Updated 11/21/22 @ 22:05 by JEFFERY Bruner) Previous back surgery total of 6 back surgeries S/P PTCA (percutaneous transluminal coronary angioplasty) Social History Smoking and tobacco/nicotine status: current every day tobacco/nicotine user (chew) smokeless tobacco Second hand smoke exposure: No Alcohol intake: never Substance/Drug Use: never Marital status: Single Pertinent Exam Findings alert, oriented x 3, clear to auscultation bilaterally and regular rate & rhythm Recommendations Surgery/Procedure today Coding Level of Care Code Acute Code for Chg Fwd
[2023-11-25 06:04] VITALS: BP 119/80; PULSE 74; RESP 16; TEMP 36.6; O2SAT 95; BMI 33.0
[2023-11-25] MEDS: sodium chloride 0.9% 1,000 ML 30 ML IV (06:14)
[2023-11-25 06:19] LABS: Glucose Point of Care 207 mg/dL (70-110)
--- NOTE | 2023-11-25 06:28 | ANES.PREANE2 ---
Pre-Anesthetic Assessment Height/Weight: Height 1.75 m Weight 101.605 kg Temp Pulse Resp BP Pulse Ox O2 Del Method 97.8 F 74 16 119/80 95 Room Air 11/25/23 06:04 11/25/23 06:04 11/25/23 06:04 11/25/23 06:04 11/25/23 06:04 11/25/23 06:04 Preop Diagnosis: need for screening colonoscopy Operation Date: 11/25/23 07:00 Proposed Procedures p Colonoscopy(Not Applicable) - Tristen Verduzco MD Familial anesthetic complications: None Was Beta Varun taken within 24 hours: Yes Was Clonidine taken within 24 hours: N/A Last intake: Intake Last Liquid Date 11/24/23 Last Liquid Time 23:00 Last Solid Date 11/23/23 Last Solid Time 18:00 Social No alcohol and No tobacco Exam alert, oriented x 3, clear to auscultation bilaterally and regular rate & rhythm Airway Submandibular: within normal limits Cervical ROM: within normal limits Mallampati: Class III Dentition: full History/ROS No significant history except as noted and No significant complaints Pulmonary Sleep Apnea (CPAP) CV/HEM Coronary Artery Disease, Hypertension and Myocardial Infarction (Stent age 39, 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 No significant valvular heart disease was seen. Mild tricuspid regurgitation noted. Compared to prior echocardiogram from 2018, no significant changes are seen. None reported Hepatic None reported GI Gastroesophageal Reflux Disease (No issues this morning, controlled with meds) Umbilical hernia Metabolic Diabetes Mellitus, Hyperlipidemia and Morbid Obesity Musc/skel Lower Back Pain, Osteoarthritis/DJD and Weakness Neuropsych Headache and Neuropathy Anesthetic Plan ASA status: 3 Anesthesia: Anesthesia Evaluation, General and MAC Risk of > 500 ml blood loss (7ml/kg in children): No Medications/Allergies Home Medications Medication Instructions Recorded Confirmed Last Taken Type aspirin 325 mg tablet 325 mg PO DAILY 11/29/19 11/23/23 11/21/23 History cinnamon bark 500 mg capsule 1,000 mg PO BID 11/29/19 11/23/23 11/24/23 History (Cinnamon) esomeprazole magnesium 40 mg 40 mg PO BID 11/29/19 11/23/23 11/24/23 History capsule,delayed release (Nexium) fluticasone propionate 50 1 spray intranasal DAILY 11/29/19 11/23/23 02/25/23 History mcg/actuation nasal spray,suspension (Flonase Allergy Relief) linagliptin 5 mg tablet (Tradjenta) 5 mg PO DAILY 11/29/19 11/23/23 11/24/23 History lisinopril 20 1 tab PO DAILY 11/29/19 11/23/23 11/24/23 History mg-hydrochlorothiazide 25 mg tablet metformin 1,000 mg tablet 1,000 mg PO BID 11/29/19 11/23/23 11/24/23 History metoprolol succinate 50 mg 25 mg PO DAILY 11/29/19 11/25/23 11/25/23 History tablet,extended release 24 hr nortriptyline 10 mg capsule 20 mg PO BEDTIME 11/29/19 11/23/23 11/24/23 History semaglutide 1 mg/dose (2 mg/1.5 See Rx Instructions .Route .COMPLEX 11/29/19 11/23/23 11/15/23 History mL) subcutaneous pen injector (Photolitec) B-complex with vitamin C (Super B 1 tab PO DAILY 06/13/20 11/23/23 11/24/23 History Complex-Vitamin C tablet) ascorbic acid (vitamin C) 1,000 mg 500 mg PO DAILY 06/13/20 11/23/23 11/24/23 History tablet melatonin 10 mg capsule 10 mg PO QPM 12/12/20 11/23/23 11/24/23 History nitroglycerin 0.4 mg sublingual 0.4 mg sublingual Q5M PRN chest 01/05/22 11/23/23 Unknown Rx tablet pain #25 tabs dapagliflozin propanediol 10 mg 10 mg PO DAILY 03/09/22 11/23/23 11/24/23 History tablet (Farxiga) vitamin A-vitamin C-vit E-min 1 tab PO DAILY 03/09/22 11/23/23 11/24/23 History tablet gabapentin 600 mg tablet 600 mg PO TID 30 days #90 tabs 10/14/22 11/23/23 11/24/23 Rx duloxetine 30 mg capsule,delayed 60 mg PO DAILY neuropathy 02/24/23 11/23/23 11/24/23 History release (Cymbalta) atorvastatin 80 mg tablet 80 mg PO DAILY #90 tabs 04/21/23 11/23/23 11/24/23 Rx sucralfate 100 mg/mL oral 10 ml PO BID 4 weeks #560 mL 05/20/23 11/23/23 11/24/23 Rx suspension cholecalciferol (vitamin D3) 10 10 mcg PO DAILY 05/24/23 11/24/23 11/24/23 History mcg (400 unit) capsule tizanidine 2 mg capsule 4 mg (2 x 2 mg) PO BID PRN Pain 06/03/23 11/23/23 11/22/23 Rx #60 caps insulin glargine U-300 conc 300 54 unit SUBCUT DAILY 08/17/23 11/23/23 11/24/23 History unit/mL (1.5 mL) subcutaneous pen (Toujeo SoloStar U-300 Insulin) lisinopril 10 mg tablet 10 mg PO DAILY 08/17/23 11/23/23 11/24/23 History topiramate 100 mg tablet 100 mg PO BID Chronic pain #60 tabs 09/27/23 11/23/23 11/24/23 Rx hydrocodone 5 mg-acetaminophen 325 1 tab PO TID PRN pain 30 days #90 11/22/23 11/23/23 11/22/23 Rx mg tablet tabs pantoprazole 40 mg tablet,delayed 40 mg PO DAILY 11/25/23 11/25/23 11/24/23 History release (Protonix) Allergies Allergy/AdvReac Type Severity Reaction Status Date / Time sulfamethoxazole Allergy Intermediate ALGY-Rash Verified 11/22/23 09:31 [From Bactrim] trimethoprim [From Bactrim] Allergy Intermediate ALGY-Rash Verified 11/22/23 09:31 Current Medications Generic Name Dose Route Start Last Admin Trade Name Freq PRN Reason Stop Dose Admin Sodium Chloride 1,000 mls @ 30 mls/hr 11/25/23 06:00 11/25/23 06:14 Sodium Chloride 0.9% IV 30 mls/hr .Q24H NITISH Administration PFSH Anesthesia Medical History Atherosclerosis of coronary artery Obesity HIRA (obstructive sleep apnea) HTN (hypertension) Diabetes Dyslipidemia Surgical History Previous back surgery total of 6 back surgeries S/P PTCA (percutaneous transluminal coronary angioplasty) Social History Smoking and tobacco/nicotine status: current every day tobacco/nicotine user (chew) smokeless tobacco Second hand smoke exposure: No Alcohol intake: never Substance/Drug Use: never Marital status: Single Data Anesthesia Cardiac Studies: Echocardiogram 01/02/22 Sestamibi Stress Test (Cardiology) 12/30/21
[2023-11-25 07:25] VITALS: BP 99/65; PULSE 78; RESP 14; TEMP 36.5; O2SAT 94
[2023-11-25 07:40] VITALS: BP 99/63; PULSE 65; RESP 16; O2SAT 95
--- NOTE | 2023-11-25 07:50 | ANE.PACU2 ---
Inpatient post-anesthesia follow up: Airway intact: Yes Vital signs: Temperature 97.7 F Pulse Rate 65 Respiratory Rate 16 Blood Pressure 99/63 Pulse Oximetry 95 Oxygen Delivery Me thod Room Air Oxygen Flow Rate Fraction of Inspir ed Oxygen Hydration adequate: Yes Nausea and vomiting: No Pain level: 1 Mental status: Baseline
== END 2023-11-25 07:56 | disposition home or self-care (01) ==
PROVIDERS: PCP Family Medicine; Visit Provider Surgery
PROC: 0DJD8ZZ Inspection of Lower Intestinal Tract, Via Natural or Artificial Opening Endoscopic (ICD-10-PCS; CPT 45378; principal; 2023-11-25 07:00)
DX: Z12.11 Encounter for screening for malignant neoplasm of colon (principal); Z79.82 Long term (current) use of aspirin; I25.10 Atherosclerotic heart disease of native coronary artery without angina pectoris; E66.01 Morbid (severe) obesity due to excess calories; Z68.33 Body mass index [BMI] 33.0-33.9, adult; E78.5 Hyperlipidemia, unspecified; I10 Essential (primary) hypertension; F17.200 Nicotine dependence, unspecified, uncomplicated; G47.30 Sleep apnea, unspecified; I25.2 Old myocardial infarction; Z95.5 Presence of coronary angioplasty implant and graft; E11.40 Type 2 diabetes mellitus with diabetic neuropathy, unspecified; G47.33 Obstructive sleep apnea (adult) (pediatric)
CPT/HCPCS: 36416; 82962; G0121; J2371; J2704; J7030

== ENCOUNTER → 2023-12-15 10:45 | Outpatient (BNVA) | payer MEDICARE, MEDICAID, SELFPAY | PROVIDERS: PCP Family Medicine; Visit Provider Specialist | DX: G56.23 Lesion of ulnar nerve, bilateral upper limbs (principal); G56.03 Carpal tunnel syndrome, bilateral upper limbs; M67.431 Ganglion, right wrist; R22.31 Localized swelling, mass and lump, right upper limb | CPT/HCPCS: 99213 ==

== ENCOUNTER 2024-02-02 15:20 | Outpatient (CLI) | payer MEDICARE, MEDICAID, SELFPAY ==
--- NOTE | 2024-02-02 15:49 | XR_ITS ---
WS: [id number] Exam: XR hip BI 3-4V wo/w pel [id number] Date/Time of Exam: 02/02/2024 3:51 PM Reason For Exam: PAIN Comparison 11/13/2022. Intact RIGHT total hip arthroplasty. No sign of loosening or fracture. Normal soft tissues. XR/XR hip BI 3-4V wo/w pel [id number] IMPRESSION: 1. Intact RIGHT total hip arthroplasty without complication. LEFT hip. Moderate degenerative change of the joint compartment. No acute fract ure. Marginal osteophyte formation along the femoral neck. Normal soft tissues. IMPRESSION: 1. Moderate degenerative change of the LEFT hip. No fracture or dislocation.
== END 2024-02-02 15:21 | disposition home or self-care (01) ==
LOC: RAD 15:22
PROVIDERS: PCP Family Medicine; Visit Provider Anesthesiology Pain Medicine
DX: M16.12 Unilateral primary osteoarthritis, left hip (principal); Z96.641 Presence of right artificial hip joint
CPT/HCPCS: 73522

== ENCOUNTER 2024-02-05 11:04 | Emergency (ER) | payer MEDICARE, MEDICAID, SELFPAY ==
--- NOTE | 2024-02-05 11:02 | ECG_ITS ---
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 Measurements Intervals [place] Rate: 92 P: 48 WV: 179 QRS: 36 QRSD: 82 T: 35 QT: 333 QTc: 412 Interpretive Statements SINUS RHYTHM WITH FREQUENT VENTRICULAR PREMATURE COMPLEXES POSSIBLE LEFT ATRIAL ENLARGEMENT [-0.1mV P-WAVE IN V1/V2] LOW QRS VOLTAGE IN PRECORDIAL LEADS [QRS DEFLECTION < 1.0 mV IN CHEST LEADS] Compared to ECG 03/09/2022 12:43:08 Ventricular premature complex(es) now present Low QRS voltage now present Electronically Signed On 02-05-2024 15:07:40 CDT by William Wilks M.D. [email or web address]
[2024-02-05 11:09] VITALS: BP 136/83; PULSE 80; RESP 18; TEMP 36.6; O2SAT 99; BMI 33.0
--- NOTE | 2024-02-05 12:14 | XRR_ITS ---
PROCEDURE INFORMATION: Exam: XR Chest Exam date and time: 02/05/2024 12:33 PM Age: 53 years old Clinical indication: Chest pressure; Prior surgery; Surgery date: 6+ months; Surgery type: Cardiac stent 2009; Patient HX: Chest pain; HX cardiac stent (2009); Additional info: Chest pain; HX cardiac stent (2009) TECHNIQUE: Imaging protocol: Radiologic exam of the chest. Views: 1 view. COMPARISON: CR XR chest 1V portable [id number] 12/19/2021 11:27 PM FINDINGS: Lungs: Unremarkable. No consolidation or mass. Pleural spaces: Unremarkable. No pleural effusion. No pneumothorax. Heart/Mediastinum: Unremarkable. No cardiomegaly. Bones/joints: Unremarkable. XR/XR chest 1V portable [id number] IMPRESSION: No acute findings.
--- NOTE | 2024-02-05 12:20 | W.ED.CHESTPA ---
HPI - Chest Pain General: Chief Complaint: Chest Pain Stated Complaint: Chest Pain Time Seen by Provider: 02/05/24 12:07 History of Present Illness: 53-year-old male presents emergency room complaining of sharp left chest pain that began yesterday. Nothing aggravates or worsens. He has no shortness of breath associated with it. Associated symptoms: Deny abdominal pain, dyspnea or fever(s) Related Data Home Medications Medication Instructions Recorded Confirmed aspirin 325 mg tablet 325 mg PO DAILY 11/29/19 12/15/23 cinnamon bark 500 mg capsule 1,000 mg PO BID 11/29/19 12/15/23 (Cinnamon) esomeprazole magnesium 40 mg 40 mg PO BID 11/29/19 12/15/23 capsule,delayed release (Nexium) fluticasone propionate 50 1 spray intranasal DAILY 11/29/19 12/15/23 mcg/actuation nasal spray,suspension (Flonase Allergy Relief) linagliptin 5 mg tablet (Tradjenta) 5 mg PO DAILY 11/29/19 12/15/23 lisinopril 20 1 tab PO DAILY 11/29/19 12/15/23 mg-hydrochlorothiazide 25 mg tablet metformin 1,000 mg tablet 1,000 mg PO BID 11/29/19 12/15/23 metoprolol succinate 50 mg 25 mg PO DAILY 11/29/19 12/15/23 tablet,extended release 24 hr nortriptyline 10 mg capsule 20 mg PO BEDTIME 11/29/19 12/15/23 semaglutide 1 mg/dose (2 mg/1.5 See Rx Instructions .Route .COMPLEX 11/29/19 12/15/23 mL) subcutaneous pen injector (Ozempic) B-complex with vitamin C (Super B 1 tab PO DAILY 06/13/20 12/15/23 Complex-Vitamin C tablet) ascorbic acid (vitamin C) 1,000 mg 500 mg PO DAILY 06/13/20 12/15/23 tablet melatonin 10 mg capsule 10 mg PO QPM 12/12/20 12/15/23 dapagliflozin propanediol 10 mg 10 mg PO DAILY 03/09/22 12/15/23 tablet (Farxiga) vitamin A-vitamin C-vit E-min 1 tab PO DAILY 03/09/22 12/15/23 tablet duloxetine 30 mg capsule,delayed 60 mg PO DAILY neuropathy 02/24/23 12/15/23 release (Cymbalta) cholecalciferol (vitamin D3) 10 10 mcg PO DAILY 05/24/23 12/15/23 mcg (400 unit) capsule insulin glargine U-300 conc 300 54 unit SUBCUT DAILY 08/17/23 12/15/23 unit/mL (1.5 mL) subcutaneous pen (Toujeo SoloStar U-300 Insulin) lisinopril 10 mg tablet 10 mg PO DAILY 08/17/23 12/15/23 pantoprazole 40 mg tablet,delayed 40 mg PO DAILY 11/25/23 12/15/23 release (Protonix) Previous Rx's Medication Instructions Recorded nitroglycerin 0.4 mg sublingual 0.4 mg sublingual Q5M PRN chest 01/05/22 tablet pain #25 tabs gabapentin 600 mg tablet 600 mg PO TID 30 days #90 tabs 10/14/22 atorvastatin 80 mg tablet 80 mg PO DAILY #90 tabs 04/21/23 sucralfate 100 mg/mL oral 10 ml PO BID 4 weeks #560 mL 05/20/23 suspension tizanidine 2 mg capsule 4 mg (2 x 2 mg) PO BID PRN Pain 06/03/23 #60 caps topiramate 100 mg tablet 100 mg PO BID Chronic pain #60 tabs 09/27/23 hydrocodone 5 mg-acetaminophen 325 1 tab PO TID PRN pain 30 days #90 11/22/23 mg tablet tabs metoclopramide HCl 10 mg tablet 10 mg PO Q8H nausea and vomiting 12/15/23 30 days #90 tabs Allergies Allergy/AdvReac Type Severity Reaction Status Date / Time sulfamethoxazole Allergy Intermediate ALGY-Rash Verified 12/15/23 10:48 [From Bactrim] trimethoprim [From Bactrim] Allergy Intermediate ALGY-Rash Verified 12/15/23 10:48 Review of Systems Const: Denies: fever(s) or chills Card: Reports: chest pain Resp: Denies: dyspnea GI: Denies: abdominal pain : Denies: dysuria, urinary frequency or urinary urgency Musc: Denies: neck pain or back pain Skin/Breast: Denies: rash PFSH ED PFSH: Medical History Atherosclerosis of coronary artery Obesity HIRA (obstructive sleep apnea) HTN (hypertension) Diabetes Dyslipidemia Surgical History Previous back surgery total of 6 back surgeries S/P PTCA (percutaneous transluminal coronary angioplasty) Social History Smoking and tobacco/nicotine status: never used tobacco/nicotine Second hand smoke exposure: No Alcohol intake: never Substance/Drug Use: never Marital status: Single Physical Exam Const: COMMON NORMALS: no acute distress GENERAL APPEARANCE: cooperative and comfortable ORIENTATION/CONSCIOUSNESS: Yes awake, Yes oriented to person, Yes oriented to place and Yes oriented to time HENMT: COMMON NORMALS: normocephalic, atraumatic and hearing grossly normal bilaterally HEAD & SCALP: normocephalic and atraumatic Chest: OTHER: Pain is reproducible with palpation on the left lower parasternal border. Resp: COMMON NORMALS: normal respiratory effort, No retractions, No use of accessory muscles and clear to auscultation bilaterally AUSCULTATION: clear to auscultation bilaterally Cardio: COMMON NORMALS: regular rate, regular rhythm and No murmurs present (Cardio) RATE: regular rate RHYTHM: regular rhythm GI: COMMON NORMALS: Soft to palpation and No hepatosplenomegaly present AUSCULTATION: Yes normoactive bowel sounds PALPATION: Yes Soft to palpation, No Tenderness to palpation present (GI), No Guarding due to palpation present (GI) and Yes No hepatosplenomegaly present Extremity: COMMON NORMALS: normal to inspection, capillary refill normal, no clubbing, cyanosis or edema, no calf tenderness and no pedal edema Neuro: SENSORIUM/ORIENTATION: Yes oriented to person, Yes oriented to place and Yes oriented to time Skin: COMMON NORMALS: no rashes or lesions noted GENERAL SKIN EXAM: no rashes or lesions noted Course Vital Signs: Vital signs: Vital Signs Temperature 97.8 F 02/05/24 11:09 Pulse Rate 92 02/05/24 14:42 Respiratory Rate 13 02/05/24 13:19 Blood Pressure 114/75 02/05/24 14:42 Pulse Oximetry 96 02/05/24 14:42 Oxygen Delivery Me thod Room Air 02/05/24 13:19 MDM - Chest Pain Medical Decision Making EKG shows normal sinus rhythm with PVCs but no acute ST changes cardiac enzymes are negative pain is reproducible with palpation chest x-ray was normal. Discussed with patient we will discharge patient home and refer to cardiology. Medical Records I reviewed the patient's medical records. Lab Data I reviewed the patient's lab results. 02/05/24 12:23 02/05/24 12:23 Radiology Impressions Chest X-Ray 02/05/24 12:14 IMPRESSION: No acute findings. Laboratory Results WBC 5.81 10^3/uL (3.29-11.43) 02/05/24 12:23 RBC 5.13 10^6/uL (3.85-5.65) 02/05/24 12:23 Hgb 14.80 g/dL (11.27-16.99) 02/05/24 12:23 Hct 44.7 % (37-53) 02/05/24 12:23 MCV 87.1 fl (82-101) 02/05/24 12:23 MCH 28.8 pg (27-33) 02/05/24 12:23 MCHC 33.1 g/dL (30-55) 02/05/24 12:23 RDW 13.3 % (12.1-15.1) 02/05/24 12:23 Plt Count 162 10^3/cmm (157-399) 02/05/24 12:23 MPV 10.9 fL (7.4-10.4) H 02/05/24 12:23 Neut % (Auto) 70.5 % 02/05/24 12:23 Lymph % (Auto) 15.8 % 02/05/24 12:23 [place] % (Auto) 6.5 % 02/05/24 12:23 Eos % (Auto) 6.0 % 02/05/24 12:23 Baso % (Auto) 0.7 % 02/05/24 12:23 Neut # (Auto) 4.09 10^3/uL (1.8-7.7) 02/05/24 12:23 Lymph # (Auto) 0.9 10^3/uL (0.8-4.8) 02/05/24 12:23 [place] # (Auto) 0.4 10^3/uL (0.2-0.9) 02/05/24 12:23 Eos # (Auto) 0.4 10^3/uL (0.0-0.8) 02/05/24 12:23 Baso # (Auto) 0.0 10^3/uL (0.0-0.1) 02/05/24 12:23 Nucleated RBC % (auto) 0 % 02/05/24 12:23 Nucleated RBCs # 0.0 /100WBC 02/05/24 12:23 Sodium 136 mmol/L (136-145) 02/05/24 12:23 Potassium 4.0 mmol/L (3.5-5.1) 02/05/24 12:23 Chloride 100 mmol/L (98-107) 02/05/24 12:23 Carbon Dioxide 21 mmol/L (22-29) L 02/05/24 12:23 Anion Gap 19.0 (5-19) 02/05/24 12:23 BUN 21 mg/dL (6-20) H 02/05/24 12:23 Creatinine 0.6 mg/dL (0.7-1.2) L 02/05/24 12:23 GFR Calculation 141.5 mL/min (90-130) H 02/05/24 12:23 Glucose 187 mg/dL (65-115) H 02/05/24 12:23 Calculated Osmolality 290 mOsm/kg (285-295) 02/05/24 12:23 Calcium 9.1 mg/dL (8.5-10.5) 02/05/24 12:23 Total Bilirubin 0.4 mg/dL (0.15-1.2) 02/05/24 12:23 AST 21 U/L (0-40) 02/05/24 12:23 ALT 48 U/L (0-41) H 02/05/24 12:23 Alkaline Phosphatase 72 U/L (40-130) 02/05/24 12:23 Troponin T Baseline 10 ng/L (0-15) 02/05/24 12:23 Troponin T 120 Minute 9.35 ng/L (0-15) 02/05/24 14:26 Delta Troponin T -0.65 ABS# (0-10) L 02/05/24 14:26 Total Protein 6.8 g/dL (6.6-8.7) 02/05/24 12:23 Albumin 4.8 g/dL (3.5-5.2) 02/05/24 12:23 Globulin 2.0 g/dL (1.3-4.6) 02/05/24 12:23 All radiology interpretation(s) finalized by discharge EKG Data EKG 1: Interpretation: February 05, 2024 1102 Sinus rhythm with several PVCs no acute ST changes are noted. Rate 92 OR interval 179 QT 333. EKG 2: Interpretation: 02/05/2024 1404 Normal sinus rhythm with frequent PVCs. No acute ST changes noted rate 86 OR interval 179 QT 340 Clincial Decision Support The following clinical decision support tools were used to aid in care of the patient HEART Score -> History: Slightly Suspicous, EKG: Normal (Frequent PVCs), Age: 45-64 yrs, Risk Factors: 1 or 2 Risk Factors, Troponin: Baseline Trop <16 ng/L. Resulting HEART Score: 2. Discharge Plan Discharge Patient Disposition: Home Clinical Impression: Acute chest wall pain Condition: Stable Prescriptions: No Action Ozempic 1 mg/dose (2 mg/1.5 mL) pen injector See Rx Instructions .ROUTE .COMPLEX Rx Instructions: 2 mg subcutaneously WEEKLY on wednesday Tradjenta 5 mg tablet 5 mg PO DAILY metoprolol succinate 50 mg tablet extended release 24 hr 25 mg PO DAILY fluticasone propionate [Flonase Allergy Relief] 50 mcg/actuation spray,suspension 1 spray INTRANASAL DAILY Rx Instructions: administer into each nostril esomeprazole magnesium [Nexium] 40 mg capsule,delayed release(DR/EC) 40 mg PO BID cinnamon bark [Cinnamon] 500 mg capsule 1,000 mg PO BID metformin 1,000 mg tablet 1,000 mg PO BID Hold Instructions: Resume on 01/15/22. nortriptyline 10 mg capsule 20 mg PO BEDTIME lisinopril-hydrochlorothiazide 20-25 mg tablet 1 tab PO DAILY aspirin 325 mg tablet 325 mg PO DAILY B-complex with vitamin C [Super B Complex-Vitamin C] Tablet 1 tab PO DAILY ascorbic acid (vitamin C) 1,000 mg tablet 500 mg PO DAILY Jenelle Dhillon U-300 Insulin 300 unit/mL (1.5 mL) insulin pen 54 unit SUBCUT DAILY melatonin 10 mg capsule 10 mg PO QPM nitroglycerin 0.4 mg tablet, sublingual 0.4 mg sublingual Q5M PRN (Reason: chest pain) Qty: 25 2RF Rx Instructions: do not exceed 3 doses per episode gabapentin 600 mg tablet 600 mg PO TID 30 Days Qty: 90 0RF lisinopril 10 mg tablet 10 mg PO DAILY sucralfate 100 mg/mL suspension 10 ml PO BID 28 Days Qty: 560 0RF topiramate 100 mg tablet 100 mg PO BID Qty: 60 3RF hydrocodone-acetaminophen 5-325 mg tablet 1 tab PO TID PRN (Reason: pain) 30 Days Qty: 90 0RF cholecalciferol (vitamin D3) 10 mcg (400 unit) capsule 10 mcg PO DAILY atorvastatin 80 mg tablet 80 mg PO DAILY Qty: 90 3RF tizanidine 2 mg capsule 4 mg PO BID PRN (Reason: Pain) Qty: 60 0RF metoclopramide HCl 10 mg tablet 10 mg PO Q8H 30 Days Qty: 90 5RF Protonix 40 mg tablet,delayed release (DR/EC) 40 mg PO DAILY vitamin A-vitamin C-vit E-min Tablet 1 tab PO DAILY dapagliflozin propanediol [Farxiga] 10 mg tablet 10 mg PO DAILY duloxetine [Cymbalta] 30 mg capsule,delayed release(DR/EC) 60 mg PO DAILY Discharge Orders: Discharge ED (Routine); Ordered 02/05/24 Ordered By: Ernesto Prather Referrals: Cyrus Covarrubias MD [Primary Care Provider] - Discharge Diet: Usual diet Discharge Activity: Resume usual activity Patient Instructions: Opioid Safety, Pain Management Activity Restrictions/Additional Instructions: Thank you for choosing [facility] for your healthcare needs today. It is very important that you follow up as instructed or that you return to the Emergency Department should you have concerns or if your condition changes or worsens in any way. You were seen today for Chest pain your chest pain is reproducible with palpation on the anterior chest wall. Your cardiac enzymes were normal EKG showed PVCs but no evidence of any acute changes no acute coronary syndrome. Recommend you follow-up with Dr. Wilks. Continue to take all the medications previously prescribed Coding Level of Care Code ED Senior Underwriting Assistant for Rupa Reinoso
[2024-02-05 12:22] VITALS: BP 135/84; PULSE 89; RESP 23; O2SAT 96
[2024-02-05 12:31] LABS: Basophils % 0.7 %; Eosinophils # 0.4 10^3/uL (0.0-0.8); Hematocrit 44.7 % (37-53); Lymphocytes # 0.9 10^3/uL (0.8-4.8); Lymphocytes % 15.8 %; Mean Corpuscular HGB Conc 33.1 g/dL (30-55); Mean Corpuscular Hemoglobin 28.8 pg (27-33); Mean Corpuscular Volume 87.1 fl (82-101); Mean Platelet Volume 10.9 fL (7.4-10.4); Monocytes # 0.4 10^3/uL (0.2-0.9); Monocytes % 6.5 %; Neutrophils # 4.09 10^3/uL (1.8-7.7); Neutrophils % 70.5 %; Nucleated Red Blood Cells % 0 %; Platelet Count 162 10^3/cmm (157-399); Red Blood Count 5.13 10^6/uL (3.85-5.65); Red Cell Distribution Width 13.3 % (12.1-15.1); White Blood Count 5.81 10^3/uL (3.29-11.43)
[2024-02-05 12:51] LABS: Alanine Aminotransferase 48 U/L (0-41); Albumin Level 4.8 g/dL (3.5-5.2); Alkaline Phosphatase 72 U/L (40-130); Aspartate Amino Transferase 21 U/L (0-40); Blood Urea Nitrogen 21 mg/dL (6-20); Calcium 9.1 mg/dL (8.5-10.5); Carbon Dioxide 21 mmol/L (22-29); Chloride 100 mmol/L (98-107); Glomerular Filtration Rate 141.5 mL/min (90-130); Glucose 187 mg/dL (65-115); Osmolality Calculated 290 mOsm/kg (285-295); Sodium 136 mmol/L (136-145); Total Bilirubin 0.4 mg/dL (0.15-1.2); Total Protein 6.8 g/dL (6.6-8.7)
[2024-02-05 12:52] LABS: Troponin(5th) Baseline 10 ng/L (0-15)
[2024-02-05 13:19] VITALS: BP 117/81; PULSE 83; RESP 13; O2SAT 95
[2024-02-05 13:28] LABS: Creatinine Clr Calc Pharmacy 169.2004
[2024-02-05 13:43] VITALS: BP 109/66; PULSE 88; O2SAT 94
--- NOTE | 2024-02-05 14:14 | ECG_ITS ---
[facility] Test Date: 2024-02-05 Pat Name: Farshad Cruz Department: Room: Gender: Male Rn Surgery Icu: : 1970 Requested By: Ernesto Barbour Order Number: [id number] Eduardo MD: William Wilks M.D. Measurements Intervals Bent Rate: 86 P: 47 TX: 179 QRS: 34 QRSD: 85 T: 30 QT: 340 QTc: 409 Interpretive Statements SINUS RHYTHM WITH FREQUENT VENTRICULAR PREMATURE COMPLEXES POSSIBLE LEFT ATRIAL ENLARGEMENT [-0.1mV P-WAVE IN V1/V2] POSSIBLE RIGHT VENTRICULAR CONDUCTION DELAY [RSR (QR) IN V1/V2] Compared to ECG 02/05/2024 11:02:20 No significant changes Electronically Signed On 02-05-2024 15:08:12 CDT by William Wilks M.D. [email or web address]
[2024-02-05 14:42] VITALS: BP 114/75; PULSE 92; O2SAT 96
[2024-02-05 14:51] LABS: Troponin 5 2HR 9.35 ng/L (0-15)
[2024-02-05 14:52] LABS: Troponin 5 2HR Delta -0.65 ABS# (0-10)
[2024-02-05 15:32] VITALS: BP 118/75; PULSE 93; O2SAT 94
== END 2024-02-05 15:33 | disposition home or self-care (01) ==
PROVIDERS: Emergency Provider Family Medicine; PCP Family Medicine
DX: R07.89 Other chest pain (principal); Z79.85 Long-term (current) use of injectable non-insulin antidiabetic drugs; Z79.84 Long term (current) use of oral hypoglycemic drugs; Z79.82 Long term (current) use of aspirin; Z79.4 Long term (current) use of insulin; I25.10 Atherosclerotic heart disease of native coronary artery without angina pectoris; I10 Essential (primary) hypertension; E11.9 Type 2 diabetes mellitus without complications; E78.5 Hyperlipidemia, unspecified
CPT/HCPCS: 36415; 71045; 80053; 84484; 85025; 93005; 99285

== ENCOUNTER → 2024-03-14 14:03 | Outpatient (BNVA) | payer MEDICARE, MEDICAID, SELFPAY | PROVIDERS: PCP Family Medicine; Visit Provider Orthopaedic Surgery | DX: M54.9 Dorsalgia, unspecified (principal) | CPT/HCPCS: 72100; 99214 ==

== ENCOUNTER → 2024-03-15 09:40 | Outpatient (BNVA) | payer MEDICARE, MEDICAID, SELFPAY | PROVIDERS: PCP Family Medicine; Visit Provider Surgery | DX: K57.92 Diverticulitis of intestine, part unspecified, without perforation or abscess without bleeding (principal); E66.9 Obesity, unspecified; K21.9 Gastro-esophageal reflux disease without esophagitis; K31.84 Gastroparesis; Z68.33 Body mass index [BMI] 33.0-33.9, adult | CPT/HCPCS: 99213 ==

== ENCOUNTER 2024-03-15 17:03 | Outpatient (CLI) | payer MEDICARE, MEDICAID, SELFPAY | END 2024-03-15 17:04 | disposition home or self-care (01) | LOC: LAB 17:05 | PROVIDERS: PCP Family Medicine; Visit Provider Surgery | DX: K57.92 Diverticulitis of intestine, part unspecified, without perforation or abscess without bleeding (principal) | CPT/HCPCS: 83630; 83993 ==

== ENCOUNTER → 2024-03-22 10:24 | Outpatient (BNVA) | payer MEDICARE, MEDICAID, SELFPAY | PROVIDERS: PCP Family Medicine; Visit Provider Nurse Practitioner | DX: M25.551 Pain in right hip (principal); Z96.641 Presence of right artificial hip joint; M51.16 Intervertebral disc disorders with radiculopathy, lumbar region | CPT/HCPCS: 73502; 99214 ==

== ENCOUNTER 2024-04-05 10:47 | Outpatient (RCR) | payer MEDICARE, MEDICAID, SELFPAY | END 2024-04-06 23:59 | disposition home or self-care (01) | LOC: SPT 10:47 | PROVIDERS: Visit Provider Nurse Practitioner | DX: M25.551 Pain in right hip (principal); M54.31 Sciatica, right side | CPT/HCPCS: 97161; 99213 ==

== ENCOUNTER 2024-04-07 06:00 | Outpatient (RCR) | payer MEDICARE, MEDICAID, SELFPAY | END 2024-05-03 13:33 | disposition home or self-care (01) | LOC: SPT 06:00 | PROVIDERS: PCP Family Medicine; Visit Provider Nurse Practitioner | DX: M25.551 Pain in right hip (principal); M54.31 Sciatica, right side | CPT/HCPCS: 97110 ==

== ENCOUNTER 2024-05-02 07:52 | Outpatient (CLI) | payer MEDICARE, MEDICAID, SELFPAY ==
--- NOTE | 2024-05-02 08:00 | NM_ITS ---
WS: [id number] NUCLEAR MEDICINE BONE SCAN THREE-PHASE Radiopharmaceutical: 26.9 Tc-99m MDP mCi IV Injection site: Antecubital Postinjection imaging delay: 2 hr CLINICAL INFORMATION: pain post RT RENE. COMPARISON: None. FINDINGS: Bone lesions: Normal blood flow and blood pool images. Normal postoperative periarticular uptake abou t the RIGHT RENE. No evidence of osteomyelitis or loosening. Photopenia corresponding to the RENE. Soft tissue contours: Normal. Kidneys: Normal. Other findings: Degenerative type uptake both AC joints and sternoclavicular joints. NM/NM bone 3 phase 87205 IMPRESSION: Normal postoperative periarticular uptake about the RIGHT RENE. No evidence of o steomyelitis or loosening.
== END 2024-05-02 07:53 | disposition home or self-care (01) ==
LOC: RAD 07:53
PROVIDERS: PCP Family Medicine; Visit Provider Nurse Practitioner
DX: Z96.641 Presence of right artificial hip joint (principal); M25.559 Pain in unspecified hip
CPT/HCPCS: 78315; A9561

== ENCOUNTER → 2024-05-16 15:12 | Outpatient (BNVA) | payer MEDICARE, MEDICAID, SELFPAY | PROVIDERS: PCP Family Medicine; Visit Provider Internal Medicine | DX: E11.9 Type 2 diabetes mellitus without complications (principal); Z79.4 Long term (current) use of insulin; E78.5 Hyperlipidemia, unspecified; I10 Essential (primary) hypertension; Z98.61 Coronary angioplasty status; Z87.891 Personal history of nicotine dependence | CPT/HCPCS: 99213 ==

== ENCOUNTER → 2024-06-19 12:54 | Outpatient (BNVA) | payer MEDICARE, MEDICAID, SELFPAY | PROVIDERS: PCP Family Medicine; Visit Provider Nurse Practitioner | DX: M25.551 Pain in right hip (principal); Z96.641 Presence of right artificial hip joint; M51.16 Intervertebral disc disorders with radiculopathy, lumbar region | CPT/HCPCS: 99213 ==

== ENCOUNTER → 2024-08-09 08:05 | Outpatient (BNVA) | payer MEDICARE, MEDICAID, SELFPAY | PROVIDERS: PCP Family Medicine; Visit Provider Surgery | DX: K31.84 Gastroparesis (principal) | CPT/HCPCS: 99213 ==

== ENCOUNTER → 2024-09-22 11:22 | Outpatient (BNVA) | payer MEDICARE, MEDICAID, SELFPAY | PROVIDERS: PCP Family Medicine; Visit Provider Nurse Practitioner | DX: M70.61 Trochanteric bursitis, right hip (principal); Z96.641 Presence of right artificial hip joint; M51.16 Intervertebral disc disorders with radiculopathy, lumbar region | CPT/HCPCS: 20610; 99214; J1100; J2795; J3301; J9999 ==

== ENCOUNTER → 2025-01-15 09:06 | Outpatient (BNVA) | payer MEDICARE, MEDICAID, SELFPAY | PROVIDERS: PCP Family Medicine; Visit Provider Nurse Practitioner | DX: M70.61 Trochanteric bursitis, right hip (principal); Z96.641 Presence of right artificial hip joint; M51.16 Intervertebral disc disorders with radiculopathy, lumbar region | CPT/HCPCS: 99213 ==

== ENCOUNTER → 2025-02-06 08:03 | Outpatient (BNVA) | payer MEDICARE, MEDICAID, SELFPAY | PROVIDERS: PCP Family Medicine; Visit Provider Surgery | DX: K21.9 Gastro-esophageal reflux disease without esophagitis (principal); K31.84 Gastroparesis | CPT/HCPCS: 99213 ==

== ENCOUNTER → 2025-02-13 10:49 | Outpatient (BNVA) | payer MEDICARE, MEDICAID, SELFPAY | PROVIDERS: PCP Family Medicine; Visit Provider Internal Medicine | DX: I10 Essential (primary) hypertension (principal); E11.9 Type 2 diabetes mellitus without complications; F17.220 Nicotine dependence, chewing tobacco, uncomplicated; Z79.4 Long term (current) use of insulin; Z79.85 Long-term (current) use of injectable non-insulin antidiabetic drugs | CPT/HCPCS: 99214 ==

== ENCOUNTER 2025-02-25 19:45 | Emergency (ER) | payer OTHER, MEDICAID, SELFPAY ==
--- OUTSIDE RECORDS SUMMARY | 2024-04-01 04:00 | XMS_ITS ---
Author Organization [facility] Address [address] [place] [address] Care Team Providers Care Consulting Actuary Name Role Phone Cryus Covarrubias Primary Care Provider Unavailabl Valdez Arita Unavailable [phone] Migration, Provider Unavailable Unavailable REASON FOR VISIT EMR-Moustapha Encounters Encounter Location Date Provider Diagnosis Migrated_Facility 0 0 04/01/2024 Provider Migration Plan Of Treatment No Information Progress Notes * Farshad HAMMOND ADOB: [birth year] (54 yo M)Acc No.[id number]:04/01/2024 Patient: Asael Farshad RAMIREZ :1970 A ge:53 Y S ex:Male Address:[address] [place] [address] [address], [place] [address] Subjective: * Chief Complaints: * E MR-Moustapha * * Date:
--- OUTSIDE RECORDS SUMMARY | 2024-04-02 04:00 | XMS_ITS ---
Author Organization [facility] Address [address] [place] [address] Care Team Providers Care Sandwich Machine Operator Name Role Phone Cyrus Covarrubias Primary Care Provider Unavailabl Valdez Arita Unavailable [phone] Migration, Provider Unavailable Unavailable REASON FOR VISIT EMR-Moustapha Encounters Encounter Location Date Provider Diagnosis Migrated_Facility 0 0 04/02/2024 Provider Migration Plan Of Treatment No Information Progress Notes * Farshad HAMMOND ADOB: [birth year] (54 yo M)Acc No.[id number]:04/02/2024 Patient: Asael Farshad RAMIREZ :1970 A ge:53 Y S ex:Male Address:[address] [place] [address] [address], [place] [address] Subjective: * Chief Complaints: * E MR-Moustapha * * Date:
--- OUTSIDE RECORDS SUMMARY | 2025-01-31 04:40 | XMS_ITS ---
Author Organization [facility] Address [address] [place] [address] Care Team Providers Care Business Services Analyst Name Role Phone Cyrus Covarrubias Primary Care Provider Valdez Alfonso Unavailable [phone] Allergies Allergen (clinical drug ingredient) Drug/Non Drug Allergy documented on EMR Reaction Allergy Type Onset Date Status sulfamethoxazole / trimethoprim Bactrim rash Drug Allergy Active Results Component Value Reference Range Flag Notes Urine Drug Screen (cup read) - 82215 Reviewed date:01/31/2025 10:39:03 AM Interpretation: Performing Lab: Notes/Report: OPI + Urine Confirmation Panel (in strument) - [id number] Reviewed date:02/07/2025 03:49:08 PM Interpretation: Performing Lab: Notes/Report: 6-Acetylmorphine 0 <6 ng/mL N This kiarra t was developed and its performance characteristics determined by [facility]. It has not been cleared or approved by the U.S. Food and Drug Administration. 7-Aminoclonazepam 0 <60 ng/mL N This te st was developed and its performance characteristics determined by [facility]. It has not been cleared or approved by the U.S. Food and Drug Administration. Alprazolam 0 <60 ng/mL N This test was developed and its performance characteristics determined by [facility]. It has not been cleared or approved by the U.S. Food and Drug Administration. Amphetamine 0 <75 ng/mL N This test was developed and its performance characteristics determined by [facility]. It has not been cleared or approved by the U.S. Food and Drug Administration. aOH-Alprazolam 0 <60 ng/mL N This test was developed and its performance characteristics determined by [facility]. It has not been cleared or approved by the U.S. Food and Drug Administration. Buprenorphine 0.0 <7.5 ng/mL N This test w as developed and its performance characteristics determined by [facility]. It has not been cleared or approved by the U.S. Food and Drug Administration. Norbuprenorphine 0.0 <37.5 ng/mL N This te st was developed and its performance characteristics determined by [facility]. It has not been cleared or approved by the U.S. Food and Drug Administration. Carisoprodol 0 <75 ng/mL N This test wa s developed and its performance characteristics determined by [facility]. It has not been cleared or approved by the U.S. Food and Drug Administration. Codeine 0 <75 ng/mL N This test was developed and its performance characteristics determined by [facility]. It has not been cleared or approved by the U.S. Food and Drug Administration. EDDP 0 <75 ng/mL N This test was developed and its performance characteristics determined by [facility]. It has not been cleared or approved by the U.S. Food and Drug Administration. Fentanyl 0 <6 ng/mL N This test was developed and its performance characteristics determined by [facility]. It has not been cleared or approved by the U.S. Food and Drug Administration. Hydrocodone 551 <75 ng/mL H This test was developed and its performance characteristics determined by [facility]. It has not been cleared or approved by the U.S. Food and Drug Administration. Hydromorphone 171 <75 ng/mL H This test w as developed and its performance characteristics determined by [facility]. It has not been cleared or approved by the U.S. Food and Drug Administration. Lorazepam 0 <60 ng/mL N This test was developed and its performance characteristics determined by [facility]. It has not been cleared or approved by the U.S. Food and Drug Administration. MDMA 0 <75 ng/mL N This test was developed and its performance characteristics determined by [facility]. It has not been cleared or approved by the U.S. Food and Drug Administration. Meperidine 0.0 <37.5 ng/mL N This test was developed and its performance characteristics determined by [facility]. It has not been cleared or approved by the U.S. Food and Drug Administration. Meprobamate 0 <75 ng/mL N This test was developed and its performance characteristics determined by [facility]. It has not been cleared or approved by the U.S. Food and Drug Administration. Methamphetamine 0 <75 ng/mL N This test was developed and its performance characteristics determined by [facility]. It has not been cleared or approved by the U.S. Food and Drug Administration. Methadone 0 <75 ng/mL N This test was developed and its performance characteristics determined by [facility]. It has not been cleared or approved by the U.S. Food and Drug Administration. Morphine 0 <75 ng/mL N This test was developed and its performance characteristics determined by [facility]. It has not been cleared or approved by the U.S. Food and Drug Administration. Nordiazepam 0 <60 ng/mL N This test was developed and its performance characteristics determined by [facility]. It has not been cleared or approved by the U.S. Food and Drug Administration. Norfentanyl 0 <6 ng/mL N This test was developed and its performance characteristics determined by [facility]. It has not been cleared or approved by the U.S. Food and Drug Administration. Normeperidine 0.0 <37.5 ng/mL N This test was developed and its performance characteristics determined by [facility]. It has not been cleared or approved by the U.S. Food and Drug Administration. O-desmethyltramadol 0 <75 ng/mL N This test was developed and its performance characteristics determined by [facility]. It has not been cleared or approved by the U.S. Food and Drug Administration. Oxazepam 0 <60 ng/mL N This test was developed and its performance characteristics determined by [facility]. It has not been cleared or approved by the U.S. Food and Drug Administration. Oxycodone 0.0 <37.5 ng/mL N This test was developed and its performance characteristics determined by [facility]. It has not been cleared or approved by the U.S. Food and Drug Administration. Oxymorphone 0 <75 ng/mL N This test was developed and its performance characteristics determined by [facility]. It has not been cleared or approved by the U.S. Food and Drug Administration. Phencyclidine 0.0 <7.5 ng/mL N This test w as developed and its performance characteristics determined by [facility]. It has not been cleared or approved by the U.S. Food and Drug Administration. Tapentadol 0.0 <37.5 ng/mL N This test was developed and its performance characteristics determined by [facility]. It has not been cleared or approved by the U.S. Food and Drug Administration. Temazepam 0 <60 ng/mL N This test was developed and its performance characteristics determined by [facility]. It has not been cleared or approved by the U.S. Food and Drug Administration. Tramadol 0 <75 ng/mL N This test was developed and its performance characteristics determined by [facility]. It has not been cleared or approved by the U.S. Food and Drug Administration. Norhydrocodone 1593 <75 ng/mL H This test was developed and its performance characteristics determined by [facility]. It has not been cleared or approved by the U.S. Food and Drug Administration. Noroxycodone 0 <38 ng/mL N This test wa s developed and its performance characteristics determined by [facility]. It has not been cleared or approved by the U.S. Food and Drug Administration. Pregabalin 0 <225 ng/mL N This test was developed and its performance characteristics determined by [facility]. It has not been cleared or approved by the U.S. Food and Drug Administration. Gabapentin >35045 <225 ng/mL > This test was developed and its performance characteristics determined by [facility]. It has not been cleared or approved by the U.S. Food and Drug Administration. Benzoylecgonine 0.0 <37.5 ng/mL N This kiarra t was developed and its performance characteristics determined by [facility]. It has not been cleared or approved by the U.S. Food and Drug Administration. 4-Hydroxy Xylazine 0 <25 ng/mL N This t est was developed and its performance characteristics determined by [facility]. It has not been cleared or approved by the U.S. Food and Drug Administration. REASON FOR VISIT 1 month f/u Medications Medication SIG (Take, Route, Frequency, Duration) Notes Start Date End Date Status Nortriptyline HCl 10 MG Capsule 1 capsule at bedtime Orally Once a day Active Ozempic (0.25 or 0.5 MG/DOSE) 2 MG/3ML Solution Pen-injector as directed Subcutaneous Active tiZANidine HCl 4 MG Tablet 1 tablet at bedtime as needed Orally Once a day Active Metoclopramide HCl 5 MG Tablet 1 tablet before meals Orally Twice a day Active Metoprolol Succinate ER 50 MG Tablet Extended Release 24 Hour 1 tablet Orally Once a day Active HYDROcodone-Acetaminoph en 5-325 MG Tablet 1 tablet as needed Orally every 6 hrs Active Lisinopril 10 MG Tablet 1 tablet Orally Once a day Active Melatonin 10 MG Tablet as directed Orally Active Meloxicam 15 MG Tablet 1 tablet Orally O nce a day Active metFORMIN HCl 1000 MG Tablet 1 tablet with a meal Orally Once a day Active Cetirizine HCl 10 MG Tablet 1 tablet Orally Once a day Active Esomeprazole Magnesium 40 MG Capsule Delayed Release 1 capsule 1/2 to 1 hour before morning meal Orally Once a day Active Farxiga 10 MG Tablet 1 tablet Orally Onc e a day Active Topiramate 100 MG Tablet 1 tablet Orally Once a day; Duration: 30 days 01/31/2025 Active Gabapentin 600 MG Tablet 1 tablet Orally Once a day Active Tourakel SoloStar 300 UNIT/ML Solution Pen-injector as directed Subcutaneous Active Ativan 1 MG Tablet 1 tablet Orally twice a day; Duration: 1 days One tablet 1 hour before and 1 tablet right before MRI Fill 01/19/2025 01/17/2025 Active Atorvastatin Calcium 80 MG Tablet 1 tablet Orally Once a day Active Topiramate 100 MG Tablet 1 tablet Orally Once a day Active HYDROcodone-Acetaminoph en 5-325 MG Tablet 1 tablet as needed Orally every 8 hours; Duration: 30 days As needed Not to exceed 3 per day Fill 02/01/2025 01/31/2025 03/03/2025 Active Social History Tobacco Use: Social History Observation Description Date Details (start date - stop date) Current Smoker NA - NA Social History Drugs/Alcohol: Social Info Question Answer Notes Drugs Have you used drugs other than those for medical reasons in the past 12 months? No Tobacco Use: Social Info Question Answer Notes Tobacco Control (Standard) Tobacco use: Current smoker Additional Details Category Social Info Options Details Miscellaneous: Current Employment Status On Disability Drugs/Alcohol: Do you drink alcohol? 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 We reviewed his new lumbar MRI, which looks good. There are no areas of residual stenosis. At this point, I do not believe any further interventions from an injection standpoint would be beneficial. We revisited the option of SCS, which I believe remains a reasonable consideration for him. We discussed his prior trial, which appears to have been quite some time ago. He reports that it did not provide coverage for his leg, his area of worst pain. We will work to verify the dates and details of that SCS trial to better understand what was done. In the meantime, we will proceed with arranging a psych evaluation as part of the SCS process. We will continue his current pain medications, and I also provided a prescription for Topamax, as he has taken it in the past with some relief. We will follow up for the SCS trial or the in two months and proceed accordingly. 01/31/2025 Failed back syndrome of lumbar spine (ICD-10 - M96.1) RECOMMEND SPINAL CORD STIMULATOR TRIAL A percutaneous spinal cord stimulator (SCS) trial is recommended for this patient who has failed all reasonable therapies, both operative and nonoperative, as noted in prior records. The patient has met all diagnostic criteria for consideration of this device, as above. We will schedule SCS trial after successful completion of a psychological evaluation by psychologist or psychiatrist. A thorough review of the indications and risks of spinal cord stimulator implantation has been discussed with the patient. If greater than 50-60% reduction in pain is achieved during the trial, a permanent implant will be considered. The trial period is five days as an outpatient. The procedure and risks were discussed with the patient including but not limited to infection, bleeding, neurological complications, side effects from medications, no change in pain, worsening of pain, or even . We also discussed conservative options, surgical options, and medical management with patient as well. The patient indicates understanding and wishes to proceed with the recommended treatment approach. The patient was given written information about the procedure and all questions were answered. 01/31/2025 Intervertebral disc disorders with radiculopathy, lumbar region (ICD-10 - M51.16) 01/31/2025 Spondylosis without myelopathy or radiculopathy, lumbar region (ICD-10 - M47.816) 01/31/2025 Abnormality of gait and mobility (ICD-10 - R26.9) 01/31/2025 intermediate (current) use of opiate analgesic (ICD-10 - Z79.891) 01/31/2025 Other I, Maddy José, am scribing for Dr. Valdez Shaffer. I, Dr. Valdez Shaffer, personally performed the services described in this documentation, as scribed by Maddy José, and it is both accurate and complete. Plan Of Treatment Medication Medication Name Sig Start Date Stop Date Notes Topiramate 100 MG Tablet 1 tablet Orally Once a day; Duration: 30 days 01/31/2025 HYDROcodone-Acetaminophen 5-325 MG Tablet 1 tablet as needed Orally every 8 hours; Duration: 30 days 01/31/2025 03/03/2025 Fill 02/01/2025 Treatment Notes Assessment Notes Chronic pain syndrome I had a nice visit with the patient today regarding his chronic pain issues. We reviewed his new lumbar MRI, which looks good. There are no areas of residual stenosis. At this point, I do not believe any further interventions from an injection standpoint would be beneficial. We revisited the option of SCS, which I believe remains a reasonable consideration for him. We discussed his prior trial, which appears to have been quite some time ago. He reports that it did not provide coverage for his leg, his area of worst pain. We will work to verify the dates and details of that SCS trial to better understand what was done. In the meantime, we will proceed with arranging a psych evaluation as part of the SCS process. We will continue his current pain medications, and I also provided a prescription for Topamax, as he has taken it in the past with some relief. We will follow up for the SCS trial or the in two months and proceed accordingly. Failed back syndrome of lumbar spine RECOMMEND SPINAL CORD STIMULATOR TRIAL A percutaneous spinal cord stimulator (SCS) trial is recommended for this patient who has failed all reasonable therapies, both operative and nonoperative, as noted in prior records. The patient has met all diagnostic criteria for consideration of this device, as above. We will schedule SCS trial after successful completion of a psychological evaluation by psychologist or psychiatrist. A thorough review of the indications and risks of spinal cord stimulator implantation has been discussed with the patient. If greater than 50-60% reduction in pain is achieved during the trial, a permanent implant will be considered. The trial period is five days as an outpatient. The procedure and risks were discussed with the patient including but not limited to infection, bleeding, neurological complications, side effects from medications, no change in pain, worsening of pain, or even . We also discussed conservative options, surgical options, and medical management with patient as well. The patient indicates understanding and wishes to proceed with the recommended treatment approach. The patient was given written information about the procedure and all questions were answered. Other I, Maddy José, am scribing for Dr. Valdez Shaffer. I, Dr. Valdez Shaffer, personally performed the services described in this documentation, as scribed by Maddy José, and it is both accurate and complete. Future Test Test Name Order Date Implant Spinal Cord Stimulator Trial - 6 364902/01/2025 Next Appt Details Follow Up: 2 Months, Reason: History and Physical Notes * HPI (History of Present Illness) Category Sub-Category Detail Notes Category Not es Provider Note I'm hurting a lot. Pleasant patient continues to have pain in the low back and leg. Pain Details Pain Location Right leg Quality Burning, Aching, Thr obbing Severity of pain at its worst 8/10 Severity of pain at its best 4/10 Severity of average pain 6/10 Severity of pain right now 8/10 Severity of pain on medication 4/10 When did you last take your pain medicin e 01/30/25 Medication Details Do you have a lock b ox or safe place for medication away from minors and/or others? Yes Do you have any leftover pain medication building up at your house? No Do you understand that pain medication c an be addicting and can cause overdose? Yes Do you feel you can REDUCE the amount of medication you take today? No Opioid Assessment Tools Pill Count Pt didn't bring m edication Last Urine Drug Screen None Today's Rapid Urine Drug Screen will be sent for confirmation [place] Prescription Monitoring Program [place] PDMP, found to be consistent with treatment history, reviewed today Treatment History Test undergone in the past 5 Lumbar MRI Past medication you have taken [place] 10/07 25 #90 Treatments you have had None Ipma Examination Category Sub-Category Detail Notes Category Not es General Examination Constitutional: Patient appears to be appropriate looking for stated age, overweight. Patient is awake, alert and oriented to person, place and time with recent/ remote memory intact. in no acute distress noted. HEENT: Atraumatic, Normocephalic. Pupils grossly normal on inspection. Respiratory: Visual Inspection: breathing equal bilaterally, trachea midline. Cardiovascular: Cardiac rhythm is regular. Gastrointestinal: Abdomen grossly normal. No obvious firmness, tenderness or masses noted. Lumbar Spine: Inspection of the lumbar spine reveals normal lordosis with no obvious scoliosis or asymmetry noted. Surgical scars consistent with hx. Palpation of the lumbar facets produced back pain. Range of Motion: Greatly reduced ROM in all directions. Hyperextension at lumbar spine reproduced lower back pain. Bilateral facet loading maneuvers (lateral flexion/extension/bending) reproduced lower back pain. Bilateral lateral rotation also causes some pain. Stooping forward slightly gives some relief. Anterior lumbar flexion causes pain. Pain during lumbar extension was observed. Left lateral flexion causes pain. Right lateral flexion causes pain. Noted tightness and tenderness of b/l lumbar paraspinals Joints- Hips/ SI Joint: SI Joint Palpation : negative bilaterally. Neurology - Mental Status: Affect and mood appear grossly normal. Neurology - Coordination: Antalgic gait. Neurology - Straight Leg Raising: Right: 60 degrees and negative. Left: 60 degrees and negative. Neurology - Motor Strength: Left LE strength - Flexors: 4/5. Right LE strength - Flexors: 4/5. Left LE strength - Extensors: 4/5. Right LE strength - Extensors: 4/5. Left LE Tone: Normal. Right LE Tone: Normal. Neurology - Sensation: paresthesias down Right LE in mainly L4-5 distributions Neurology - Deep Tendon Reflexes: Left patellar (DTR): 2. Right patellar (DTR): 2. Left achilles (DTR): 1. Right achilles (DTR): 1. Progress Notes * Farshad HAMMOND ADOB: [birth year] (54 yo M)Acc No.[id number]:01/31/2025 Progress Notes Patient: Farshad Hernández Provider: Salbador Shaffer D.O. :1970 A ge:54 Y S ex:Male Date:01/31/2025 Address:[address] [place], [place] [id number] Pcp:Cyrus Covarrubias Check In:08:43 AM RESIDENTIAL CARPENTER Subjective: * Chief Complaints: * 1 month f/u * HPI: P ain Details: Pain Location R ight leg. Quality B urning, Aching, Throbbing. Severity of pain at its worst 8 /10. Severity of pain at its best 4 /10. Severity of pain on medication 4 /10. Severity of average pain 6 /10. Severity of pain right now 8 /10. When did you last take your pain medicine . M edication Details: Do you have a lock box or safe place for medication away from minors and/or others? Y es. Do you have any leftover pain medication building up at your house? N o. Do you understand that pain medication can be addicting and can cause overdose? Y es. Do you feel you can REDUCE the amount of medication you take today? N o. O pioid Assessment Tools: Pill Count P t didn't bring medication. Last Urine Drug Screen N one. Today's Rapid Urine Drug Screen w ill be sent for confirmation. [place], found to be consistent with treatment history, reviewed today. T reatment History: Test undergone in the past 0 01/22/2025 Lumbar MRI. Past medication you have taken H ydro #90. Treatments you have had N one Ipma. Edin mccabe Note: I'm hurting a lot. Pleasant patient continues to have pain in the low back and leg. * ROS: G eneral - Multi System: Constitutional D eniesfever, fatigue, weight gain, weight loss, sleep difficulty. R espiratory D enies, cough, shortness of breath, COPD/emphysema, sleep apnea, wheezing, snoring. G astrointestinal?Denies, nausea, vomiting, constipation, diarrhea, abdominal pain , Reports acid reflux. N eurologic D enies, headaches, numbness, weakness, memory loss, excessive sedation. P sychiatric D enies depression, anxiety, suicidal thoughts/actions, panic attacks. * Medical History: High Blood Pressure Diabetes Heart Disease Medical History Verified * Surgical History: back surgery - Dr. Asif [address] Campbell back surgery - [facility] Surgical History verified. * Family History: F amily History Verified.. Fibromyalgia Chronic Pain Cancer Rheumatoid Arthritis. * Social History: T obacco Use: T obacco Control (Standard) T obacco use: C urrent smoker D rugs/Alcohol: D rugs H ave you used drugs other than those for medical reasons in the past 12 months? N o Do you drink alcohol?: No. M iscellaneous: Harshad grubbs Employment Status: On Disability. S ocial History Verified. * Medications: T akingAtivan 1 MG Tablet 1 tablet Orally twice a day One tablet 1 hour before and 1 tablet right before MRI, Notes to Pharmacist: Fill 01/19/2025torvastatin Calcium 80 MG Tablet 1 tablet Orally Once a day Cetirizine HCl 10 MG Tablet 1 tablet Orally Once a day Esomeprazole Magnesium 40 MG Capsule Delayed Release 1 capsule 1/2 to 1 hour before morning meal Orally Once a day Farxiga 10 MG Tablet 1 tablet Orally Once a day Gabapentin 600 MG Tablet 1 tablet Orally Once a day HYDROcodone-Acetaminophen 5- 325 MG Tablet 1 tablet as needed Orally every 8 hours As needed Not to exceed 3 per day, stop date 02/02/2025, Notes to Pharmacist: Fill 01/03/2025HYDROcodone- Acetaminophen 5-325 MG Tablet 1 tablet as needed Orally every 6 hrs Lisinopril 10 MG Tablet 1 tablet Orally Once a day Melatonin 10 MG Tablet as directed Orally Meloxicam 15 MG Tablet 1 tablet Orally Once a day metFORMIN HCl 1000 MG Tablet 1 tablet with a meal Orally Once a day Metoclopramide HCl 5 MG Tablet 1 tablet before meals Orally Twice a day Metoprolol Succinate ER 50 MG Tablet Extended Release 24 Hour 1 tablet Orally Once a day Nortriptyline HCl 10 MG Capsule 1 capsule at bedtime Orally Once a day Ozempic (0.25 or 0.5 MG/DOSE) 2 MG/3ML Solution Pen-injector as directed Subcutaneous tiZANidine HCl 4 MG Tablet 1 tablet at bedtime as needed Orally Once a day Topiramate 100 MG Tablet 1 tablet Orally Once a day Toujeo SoloStar 300 UNIT/ML Solution Pen-injector as directed Subcutaneous Medication List reviewed and reconciled with the patientTaking Ativan 1 MG Tablet 1 tablet Orally twice a day One tablet 1 hour before and 1 tablet right before MRI, Notes to Pharmacist: Fill 01/19/2025Taking Atorvastatin Calcium 80 MG Tablet 1 tablet Orally Once a day Taking Cetirizine HCl 10 MG Tablet 1 tablet Orally Once a day Taking Esomeprazole Magnesium 40 MG Capsule Delayed Release 1 capsule 1/2 to 1 hour before morning meal Orally Once a day Taking Farxiga 10 MG Tablet 1 tablet Orally Once a day Taking Gabapentin 600 MG Tablet 1 tablet Orally Once a day Taking HYDROcodone-Acetaminophen 5-325 MG Tablet 1 tablet as needed Orally every 8 hours As needed Not to exceed 3 per day, stop date 02/02/2025, Notes to Pharmacist: Fill 01/03/2025Taking HYDROcodone-Acetaminophen 5-325 MG Tablet 1 tablet as needed Orally every 6 hrs Taking Lisinopril 10 MG Tablet 1 tablet Orally Once a day Taking Melatonin 10 MG Tablet as directed Orally Taking Meloxicam 15 MG Tablet 1 tablet Orally Once a day Taking metFORMIN HCl 1000 MG Tablet 1 tablet with a meal Orally Once a day Taking Metoclopramide HCl 5 MG Tablet 1 tablet before meals Orally Twice a day Taking Metoprolol Succinate ER 50 MG Tablet Extended Release 24 Hour 1 tablet Orally Once a day Taking Nortriptyline HCl 10 MG Capsule 1 capsule at bedtime Orally Once a day Taking Ozempic (0.25 or 0.5 MG/DOSE) 2 MG/3ML Solution Pen-injector as directed Subcutaneous Taking tiZANidine HCl 4 MG Tablet 1 tablet at bedtime as needed Orally Once a day Taking Topiramate 100 MG Tablet 1 tablet Orally Once a day Taking Toujeo SoloStar 300 UNIT/ML Solution Pen-injector as directed Subcutaneous Medication List reviewed and reconciled with the patient * Allergies: B actrim: rashyesAllergies Verified. Objective: * Vitals: H t: 69 in, Wt:222lbs, Wt-k.7 kg, BMI:32.78Index, Ht-cm: 175.26 cm. * P ast Orders: I navarro:[facility], [facility] MRI Lumbar Spine w/o [id number] (Order Date - 01/22/2025) (Performed Date - 01/22/2025) * Examination: G eneral Examination: C onstitutional: Patient appears to be appropriate looking for stated age, overweight. Patient is awake, alert and oriented to person, place and time with recent/ remote memory intact. in no acute distress noted. HEENT: Atraumatic, Normocephalic. Pupils grossly normal on inspection. Respiratory: Visual Inspection: breathing equal bilaterally, trachea midline. Cardiovascular: Cardiac rhythm is regular. Gastrointestinal: Abdomen grossly normal. No obvious firmness, tenderness or masses noted. Lumbar Spine: Inspection of the lumbar spine reveals normal lordosis with no obvious scoliosis or asymmetry noted. Surgical scars consistent with hx. Palpation of the lumbar facets produced back pain. Range of Motion: Greatly reduced ROM in all directions. Hyperextension at lumbar spine reproduced lower back pain. Bilateral facet loading maneuvers (lateral flexion/extension/bending) reproduced lower back pain. Bilateral lateral rotation also causes some pain. Stooping forward slightly gives some relief. Anterior lumbar flexion causes pain. Pain during lumbar extension was observed. Left lateral flexion causes pain. Right lateral flexion causes pain. Noted tightness and tenderness of b/l lumbar paraspinals Joints- Hips/ SI Joint: SI Joint Palpation : negative bilaterally. Neurology - Mental Status: Affect and mood appear grossly normal. Neurology - Coordination: Antalgic gait. Neurology - Straight Leg Raising: Right: 60 degrees and negative. Left: 60 degrees and negative. Neurology - Motor Strength: Left LE strength - Flexors: 4/5. Right LE strength - Flexors: 4/5. Left LE strength - Extensors: 4/5. Right LE strength - Extensors: 4/5. Left LE Tone: Normal. Right LE Tone: Normal. Neurology - Sensation: paresthesias down Right LE in mainly L4-5 distributions Neurology - Deep Tendon Reflexes: Left patellar (DTR): 2. Right patellar (DTR): 2. Left achilles (DTR): 1. Right achilles (DTR): 1. Assessment: * Assessment: 1. C hronic pain syndrome - G89.4 (Primary) 2 . 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 I ntervertebral disc disorders with radiculopathy, lumbar region - M51.16 4 . S pondylosis without myelopathy or radiculopathy, lumbar region - M47.816 5 . A bnormality of gait and mobility - R26.9 6 .?intermediate (current) use of opiate analgesic - Z79.891 Plan: * Treatment: 2. 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 P rocedure: Implant Spinal Cord Stimulator Trial - 92476 (Ordered for 02/01/2025) (Order pending approval) Notes: RECOMMEND SPINAL CORD STIMULATOR TRIAL A percutaneous spinal cord stimulator (SCS) trial is recommended for this patient who has failed all reasonable therapies, both operative and nonoperative, as noted in prior records. The patient has met all diagnostic criteria for consideration of this device, as above. We will schedule SCS trial after successful completion of a psychological evaluation by psychologist or psychiatrist. A thorough review of the indications and risks of spinal cord stimulator implantation has been discussed with the patient. If greater than 50-60% reduction in pain is achieved during the trial, a permanent implant will be considered. The trial period is five days as an outpatient. The procedure and risks were discussed with the patient including but not limited to infection, bleeding, neurological complications, side effects from medications, no change in pain, worsening of pain, or even . We also discussed conservative options, surgical options, and medical management with patient as well. The patient indicates understanding and wishes to proceed with the recommended treatment approach. The patient was given written information about the procedure and all questions were answered. 3. L sean term (current) use of opiate analgesic L AB: Urine Drug Screen (cup read) - 45340 (Collection Date & Time - 01/31/2025) Value Reference Range O PI + ?LAB: Urine Confirmation Panel (instrument) - 12743 (Collection Date & Time - 01/31/2025)4.?Others? Notes: I, Maddy José, am scribing for Dr. Valdez Shaffer. I, Dr. Valdez Shaffer, personally performed the services described in this documentation, as scribed by Maddy José, and it is both accurate and complete.?? * Procedure Codes: 8 0305 DRUG TEST PRSMV DIR OPT OBS IH, Modifiers: QW * Follow Up: 2 Months Billing Information: * Visit Code: 12800 Office Visit, Est Pt., Level 4. * Procedure Codes: 47573 DRUG TEST PRSMV DIR OPT OBS IH. Modifiers: QW Care Plan Details* * Electronic signature of Valdez Shaffer DO on 02/25/2025 at 07:54 PM CDT Sign off status: Pending * Provider: Salbador Shaffer D.O. Date: 0 01/31/2025 Generated for Josue mcbride/Arnol/Stephanie on: 0 02/25/2025 07:54 PM CDT
[2025-02-25 19:49] VITALS: BP 145/88; PULSE 106; RESP 16; TEMP 36.6; O2SAT 99; BMI 33.0
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
--- OUTSIDE RECORDS SUMMARY | 2025-02-25 19:54 | XMS_ITS | Encounter Summary ---
Author Organization [facility] Address [address] [place] [address] Care Team Providers Care Solar Sales Manager Name Role Phone Cyrus Covarrubias MD Primary Care Provider [phone] Encounter Details Date Type Department Care Team (Latest Contact Info) Description 09/16/2004 Outpatient Historical [facility]-[address] [place] [address] Geo Marroquin MD NO ADDRESS ON FILE SURGERY FOLLOWUP, UNSPEC (Primary Dx) Social History Tobacco Use Types Packs/Day Years Used Date Smoking Tobacco: Never Assessed Sex and Gender Information Value Date Recorded Sex Assigned at Not on file 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
--- OUTSIDE RECORDS SUMMARY | 2025-02-25 19:54 | XMS_ITS | Encounter Summary ---
Author Organization [facility] Address [address] [place] [address] Care Team Providers Care Plate Embosser Name Role Phone Cyrus Covarrubias MD Primary Care Provider [phone] Encounter Details Date Type Department Care Team (Latest Contact Info) Description 09/19/[address] 

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
--- OUTSIDE RECORDS SUMMARY | 2025-02-25 19:54 | XMS_ITS | Encounter Summary ---
Author Organization [facility] Address [address] [place] [address] Care Team Providers Care Plate Grinder Name Role Phone Cyrus Covarrubias MD Primary Care Provider Encounter Details Date Type Department Care Team (Late st Contact Info) Description 07/26/2014 Nurse Triage Report [id number] ABSTRACTION Jasmyn Corona, RN Social History Tobacco Use Types Packs/Day Years Used Date Smoking Tobacco: Every Day Cigarettes 0.5 20 Smokeless Tobacco: Former Comments:1 pouch per day. 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 Report feedback to Dr Uribe ASSESSMENT TRIAGE NOTE Triage Note: TRIAGE/OUTCOME Guideline Title: Information Only Call; No Symptom Triage (Adult) Recommended Disposition: Call Provider When Office is Open Original Inclination: Call Provider/See in 24 Override Disposition: Intended Action: Call or See Provider within 24 hrs Physician Contacted: No Requesting information and provider is best resource; no triage required. ? YES Physician Instructions: Care Advice: MOTOR OPERATOR documented in this encounter Plan of Treatment Not on file documented as of this encounter Visit Diagnoses Not on filedocumented in this encounter Care Teams Plate Grinder Relationship Specialty Start Date End Date Cyrus Covarrubias MD [address] [place] [address] [phone] PCP - General 06/06/09 documented as of this encounter
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
--- OUTSIDE RECORDS SUMMARY | 2025-02-25 19:54 | XMS_ITS | Encounter Summary ---
Author Organization [facility] Address [address] [place] [address] Care Team Providers Care Crossing Tender Name Role Phone Cyrus Covarrubias MD Primary Care Provider [phone] Encounter Details Date Type Department Care Team (Latest Contact Info) Description 10/14/2004 Outpatient Historical [facility] General and Trauma Surgery-[address] [place] [address] Geo Marroquin MD NO ADDRESS ON FILE SURGERY FOLLOWUP, UNSPEC (Primary Dx) Social History Tobacco Use Types Packs/Day Years Used Date Smoking Tobacco: Never Assessed Sex and Gender Information Value Date Recorded Sex Assigned at Not on file Legal Sex Male 6:34 AM HYDRAULIC SPECIALIST Gender Identity Not on file Sexual Orientation Not on file documented as of this encounter Plan of Treatment Not on file documented as of this encounter Visit Diagnoses Diagnosis Follow-up examination, following unspecified surgery- Primary documented in this encounter Care Teams Crossing Tender Relationship Specialty Start Date End Date Cyrus Covarrubias MD [address] [id number] PCP - General 06/06/09 documented as of this encounter
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
--- OUTSIDE RECORDS SUMMARY | 2025-02-25 19:54 | XMS_ITS | Encounter Summary ---
Author Organization [facility] Address [address] [place] [address] Care Team Providers Care Emergency Vehicle Operator Name Role Phone Cyrus Covarrubias MD Primary Care Provider [phone] Encounter Details Date Type Department Care Team (Latest Contact Info) Description 10/09/2004 Outpatient Historical [facility] Endoscopy [place] [address] [facility] [address] [place] [address] Tristen Uribe MD NO ADDRESS ON FILE STOMACH FUNCTION DIS NEC (Primary Dx) Social History Tobacco Use Types Packs/Day Years Used Date Smoking Tobacco: Never Assessed Sex and Gender Information Value Date Recorded Sex Assigned at Not on file 

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
--- OUTSIDE RECORDS SUMMARY | 2025-02-25 19:54 | XMS_ITS | Encounter Summary ---
Author Organization [facility] Address [address] [place] [address] Care Team Providers Care Miller Helper Name Role Phone Cyrus Covarrubias MD Primary Care Provider [phone] Encounter Details Date Type Department Care Team (Latest Contact Info) Description 12/03/2003 Outpatient [facility] Gastroenterology[address] [place] [address] Tristen Uribe MD NO ADDRESS ON FILE NAUSEA WITH VOMITING (Primary Dx); ESOPHAGEAL REFLUX Social History Tobacco Use Types Packs/Day Years Used Date Smoking Tobacco: Never Assessed Sex and Gender Information Value Date Recorded Sex Assigned at Not on file 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
--- OUTSIDE RECORDS SUMMARY | 2025-02-25 19:54 | XMS_ITS | Clinical Summary ---
Author Organization [facility] Address [address] [place] [address] Care Team Providers Care Children'S Entertainer Name Role Phone Cyrus Covarrubias MD Primary Care Provider [phone] Allergies Active Allergy Reactions Criticality Noted Date Comments Sulfamethoxazole-Trimethoprim Rash Medium 2016 Medications atorvastatin (LIPITOR) 80 mg Oral tablet Take 80 mg by mouth Daily LATE. Active aspirin (MARIANA) 325 mg Oral tablet Take 325 mg by mouth daily. Active fluticasone (FLONASE) 50 mcg/spray Both Nostril SpSn Administer 2 Sprays in each nostril 1 time daily as needed. 1 Active linagliptin (TRADJENTA) 5 mg Oral Tab Take by mouth daily. Active lisinopril-hyd rochlorothiazi de (ZESTORETIC) 20-25 mg tabletIndicati ons:GERD (gastroesophag eal reflux disease) Take 1 Tab by mouth daily. Active montelukast (SINGULAIR) 10 mg tablet 5 Active OTHER Inject 2 mg by subcutaneous injection every 7 days Bydureon Pen 2 mg once weekly injection . Active nortriptyline (PAMELOR) 10 mg capsule TAKE 2 CAPSULE BY MOUTH EVERY NIGHT AT BEDTIME. 60 Capsule PRN 5 Active vit B cmplx 3-FA-Vit C-Biotin (RENAVITE-RX RX) 1-60-300 mg-mg-mcg Tablet Take 1 Tablet by mouth daily. Active BETA-CAROTENE, A, W-C & E/MIN (VISION FORMULA ORAL) Take by mouth. A ctive tiZANidine (ZANAFLEX) 2 mg Capsule Take 2 mg by mouth. Active dapagliflozin (FARXIGA) 10 mg Tablet Take 10 mg by mouth daily. Active TOUJEO SOLOSTAR 300 unit/mL (1.5 mL) pen syringe 7 Active metoclopramide HCl (REGLAN) 10 mg tablet Take 1 Tablet (10 mg) by mouth see administration instructions 10 mg by mouth the night before EGD. 1 Tablet 7 Active esomeprazole (NexIUM) 40 mg Capsule, Delayed Release(E.C.) Take 40 mg by mouth. Active gabapentin (GRALISE) 600 mg Extended Release 24 hour tablet Take by mouth. Act riana metFORMIN (FORTAMET) 1,000 mg Extended Release 24 hour tablet Take by mouth. 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 LPRD (laryngopharyngeal reflux disease) 07/13/19 13 Globus sensation 07/13/2012 Lumbar radiculopathy 04/07/2011 Herniated lumbar intervertebral disc 04/07/2011 Low back pain radiating to right leg 03/19/2009 Family History Medical History Relation Name Comments Colon Cancer Maternal Uncle Heart Disease Mother Relation Name Status Comments Maternal Grandfather Maternal Grandmother Maternal Uncle Mother Alive Social History Tobacco Use Types Packs/Day Years Used Date Smoking Tobacco: Former Cigarettes 0.3 20 0 12/05/1996 - 12/05/2016 Smokeless Tobacco: Former Alcohol Use Standard Drinks/Week Comments No 0 (1 standard drink = 0.6 oz pur e alcohol) Sex and Gender Information Value Date Recorded Sex Assigned at Not on file 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 Gender Identity Not on file Sexual Orientation Not on file Occupation Industry Job Start Date Job End Date Not on file Not on file Not on file Not on file Last Filed Vital Signs Vital Sign Reading Time Taken Comments Blood Pressure 120/75 05/19/2018 2:58 PM CAFETERIA CLERK Pulse 103 05/19/2018 2:58 PM CAFETERIA CLERK Temperature 36.4 C (97.6 F) 06/11/2017 10:27 AM CAFETERIA CLERK Respiratory Rate 18 06/11/2017 11:31 AM CAFETERIA CLERK Oxygen Saturation 94% 06/11/2017 11:31 AM CAFETERIA CLERK Inhaled Oxygen Concentration - - Weight 133 kg (293 lb 3.2 oz) 05/19/2018 2:58 PM CAFETERIA CLERK Height 175.3 cm (5' 9 ) 05/19/2018 2:58 PM CAFETERIA CLERK Body Mass Index 43.3 05/19/2018 2:58 PM CAFETERIA CLERK Plan of Treatment Health Maintenance Due Date Last Done Comments DTAP/TDAP/TD VACCINES (1 - Tdap) 09/02/1990 HEPATITIS B VACCINES (1 of 3 - 19+ 3-dose series) 08/06 FIT-DNA Q 3 years 09/02/2016 FIT/FOBT Q 1 year 09/02/2016 Flex Sig/CT Colonography Q 5 years 09/02/2016 ZOSTER VACCINE (1 of 2) 09/02/2021 INFLUENZA VACCINE (#1) 2025 COLORECTAL SCREENING 12/23/2028 12/23/2018 Colorectal Cancer Screening 12/23/2028 Medical Devices Implanted Type Area Insurance Risk Analyst Device Identifier Shelf Expiration Date Model / Serial / Lot Log [id number] - Tissue Substitutes & Biologicals - 1 - Duragen Plus [id number] Implanted:Qty: 1 on 04/17/2011 at [facility] Biological Spine Lumbar [employer] 02/04/2014 [id number] / N/A / [id number] Anulex Implanted:Qty: 1 on 04/17/2011 at [facility] N/A: Spine Lumbar [employer] 01/05/2015 [id number] / / [id number] Insurance MEDICARE PART A AND B MEDICAID [place] Advance Directives For more information, please contact: [phone] * Full Code (Latest Code Status on File) Date Activated Date Inactivated Comments 06/11/2017 9:55 AM 06/11/2017 1:41 PM * Full Code Date Activated Date Inactivated Comments 11/21/2014 7:51 AM 11/21/2014 11:18 AM * Full Code Date Activated Date Inactivated Comments 02/23/2013 7:36 AM 02/23/2013 11:10 AM * Full Code Date Activated Date Inactivated Comments 05/29/2011 10:31 AM 05/29/2011 3:35 PM * Full Code Date Activated Date Inactivated Comments 05/29/2011 8:53 AM 05/29/2011 10:31 AM Care Teams Children'S Entertainer Relationship Specialty Start Date End Date Cyrus Covarrubias MD [address] [address] PCP - General 06/06/09
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
--- OUTSIDE RECORDS SUMMARY | 2025-02-25 19:54 | XMS_ITS | Encounter Summary ---
Author Organization [facility] Address [address] [place] [address] Care Team Providers Care Windows Desktop Support Name Role Phone Cyrus Covarrubias MD Primary Care Provider [phone] Encounter Details Date Type Department Care Team (Latest Contact Info) Description 10/09/2004 Outpatient [facility] Gastroenterology[address] [place] [address] Tristen Uribe MD NO ADDRESS ON FILE ABDOMINAL PAIN EPIGASTRIC (Primary Dx); ESOPHAGEAL REFLUX; STOMACH FUNCTION DIS NEC Social History Tobacco Use Types Packs/Day Years Used Date Smoking Tobacco: Never Assessed Sex and Gender Information Value Date Recorded Sex Assigned at Not on file 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 [address] [place] [address] PCP - General 06/06/09 documented as of this encounter
--- OUTSIDE RECORDS SUMMARY | 2025-02-25 19:54 | XMS_ITS | Encounter Summary ---
Author Organization [facility] Address [address] [place] [address] Care Team Providers Care Belly Roller Name Role Phone Cyrus Covarrubias MD Primary Care Provider [phone] Encounter Details Date Type Department Care Team (Latest Contact Info) Description 09/18/2004 Outpatient [facility] Gastroenterology[address] [place] [address] Tristen Uribe MD NO ADDRESS ON FILE ABDOMINAL PAIN UNSPEC SITE (Primary Dx) Social History Tobacco Use Types Packs/Day Years Used Date Smoking Tobacco: Never Assessed Sex and Gender Information Value Date Recorded Sex Assigned at Not on file 

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
--- OUTSIDE RECORDS SUMMARY | 2025-02-25 19:54 | XMS_ITS | Clinical Summary ---
Author Organization [employer] [facility] Address [address] [facility] Attn: [place] [address] Care Team Providers Care Enterprise Account Manager Name Role Phone Cyrus Covarrubias MD Primary Care Provider [phone] Allergies Active Allergy Reactions Criticality Noted Date Comments Sulfamethoxazole-Trimethoprim Rash Medium 2016 Medications gabapentin (GRALISE) 600 mg Extended Release 24 hour tablet Take by mouth. 06/02/20 17 Active gabapentin (NEURONTIN) 800 mg tablet 04/19/20 17 Active dapagliflozin (FARXIGA) 10 mg Tablet Take 10 mg by mouth daily. 04/02/20 17 Active insulin glargine U-300 conc (Toujeo SoloStar U-300 Insulin) 300 unit/mL pen syringe 04/09/20 17 Active Insulin [place], Disposable, (BD Ultra-Fine Short Pen Needle) 31 gauge x 5/16 Needle 05/06/20 17 Active metoclopramide HCl (REGLAN) 10 mg tablet Take 1 Tablet (10 mg) by mouth see administration instructions 10 mg by mouth the night before EGD. 1 Tablet 0 05/25/20 17 Active neomycin-polymyx in B-hydrocortisone (CORTISPORIN OTIC) 3.5-10,000-1 mg/mL-unit/mL-% otic suspension 05/08/20 17 Active metFORMIN (FORTAMET) 1,000 mg Extended Release 24 hour tablet Take by mouth. 06/02/20 17 Active esomeprazole (NexIUM) 40 mg Capsule, Delayed Release(E.C.) Take 40 mg by mouth. 06/02/20 17 Active exenatide microspheres (Bydureon) 2 mg Suspension,Sust. Release Recon 04/13/20 17 Active montelukast (SINGULAIR) 10 mg tablet 08/29/19 15 Active nortriptyline (PAMELOR) 10 mg capsule TAKE 2 CAPSULE BY MOUTH EVERY NIGHT AT BEDTIME. 60 Capsule PRN 05/21/20 15 Active OTHER Inject 2 mg by subcutaneous injection every 7 days Bydureon Pen 2 mg once weekly injection . 12/05/19 15 Active tiZANidine (ZANAFLEX) 2 mg Capsule Take 2 mg by mouth. 03/18/20 16 Active beta-carotene,A, -vits C,E/mins (VISION FORMULA ORAL) Take by mouth. 03/18/20 16 Active vit B cmplx 3-FA-Vit C-Biotin (RENAVITE-RX RX) 1-60-300 mg-mg-mcg Tablet Take 1 Tablet by mouth daily. 03/18/20 16 Active ascorbic acid, vitamin C, (VITAMIN C) 1,000 mg Tablet Take 1,000 mg by mouth daily. Active vit A/C/E ac/ZnOx/cupric oxide (EYE VITAMIN AND MINERALS ORAL) Take by mouth. Active atorvastatin (LIPITOR) 80 mg tablet Take 1 Tablet by mouth daily. Active metoprolol succinate (TOPROL XL) 25 mg Extended Release 24 hour tablet Take 25 mg by mouth daily. Active Ozempic 1 mg/dose (4 mg/3 mL) Pen Injector 1 mg. 09/03/19 Active lisinopril-hydro CHLOROthiazide (ZESTORETIC) 20-25 mg tablet Take 1 Tablet by mouth daily. Active fluticasone propionate (FLONASE) 50 mcg/spray [place], Suspension nasal inhaler SHAKE LIQUID AND USE 1 SPRAY IN EACH NOSTRIL EVERY DAY DIRECTED Active aspirin (MARIANA) 325 mg tablet Take 325 mg by mouth daily. Active metFORMIN (GLUCOPHAGE) 1,000 mg tablet Take 1 Tablet by mouth 2 times daily. Active DULoxetine (CYMBALTA) 60 mg Capsule, Delayed Release(E.C.) Take 1 Capsule by mouth daily. Active insulin glargine U-300 conc (Toujeo SoloStar U-300 Insulin) 300 unit/mL pen syringe 1.5 mL by Injection route daily at bedtime. 10/22/19 22 Active topiramate (TOPAMAX) 100 mg tablet TAKE 1 TABLET BY MOUTH TWICE DAILY FOR CHRONIC PAIN Active acetaminophen (TYLENOL) 500 mg tablet Take 500 mg by mouth Continuous as needed. Active lisinopriL (PRINIVIL) 10 mg tablet Take 10 mg by mouth daily. Active cyanocobalamin 1,000 mcg Tablet Take 1,000 mcg by mouth daily. Active pregabalin (LYRICA) 75 mg Capsule Take 1 Capsule by mouth 2 times daily. 10/22/19 22 Active ondansetron (ZUPLENZ ORAL) Continuous as needed. 07/16/19 23 Active HYDROcodone-acet aminophen (NORCO) 5-325 mg tabletIndication s:Carpal tunnel syndrome of right wrist Take 1 Tablet by mouth every 6 hours as needed for Pain, Moderate. Max Daily Amount: 4 Tablets 20 Tablet 5 11:20 AM CDT 11/17/19 25 Active lancets (KionixTouch Delica Plus Lancet) 30 gauge USE TO CHECK BLOOD SUGAR TWICE DAILY 03/11/20 24 Active linaGLIPtin (TRADJENTA) 5 mg Tablet 5 mg daily. Active meloxicam (MOBIC) 7.5 mg tablet Take 1 Tablet by mouth 2 times daily. 12/26/19 25 Active pantoprazole (PROTONIX) 40 mg Tablet, Delayed Release (E.C.) TAKE 1 TABLET BY MOUTH 1 TIME FOR 6 WEEKS Active QUEtiapine (SEROquel) 100 mg tablet Take 100 mg by mouth daily at bedtime. 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 LPRD (laryngopharyngeal reflux disease) 07/13/19 13 Globus sensation 07/13/2012 Lumbar radiculopathy 04/07/2011 Herniated lumbar intervertebral disc 04/07/2011 Low back pain radiating to right leg 03/19/2009 Encounters Date Type Department Care Team Description 01/04/2025 2:00 PM CDT Office Visit [facility] [address] [facility] [place] [address] Va Anderson PA-C Ganglion cyst of volar aspect of right wrist (Primary Dx); Carpal tunnel syndrome of right wrist 11/29/2024 10:45 AM CDT Clinical Support [place] [place] [address] Ganglion cyst of volar aspect of right wrist (Primary Dx); Carpal tunnel syndrome of right wrist; S/P carpal tunnel release 11/28/2024 External Device Data STL ABSTRACTION Provider, Abstract 11/27/2024 Telephone [place] [address] [place] [phone] Georgette Herrera MD Question 11/27/2024 Telephone [place] [address] [place] [phone] Georgette Herrera MD patient question from Last 3 Months Family History Medical History Relation Name Comments Colon Cancer Maternal Uncle Heart Disease Mother Relation Name Status Comments Maternal Grandfather Maternal Grandmother Maternal Uncle Mother Alive Social History Tobacco Use Types Packs/Day Years Used Date Smoking Tobacco: Former Cigarettes Q uit: 12/05/2016 Smokeless Tobacco: Former Tobacco Cessation:Counseling Given: Not Answered Alcohol Use Standard Drinks/Week Comments No 0 (1 standard drink = 0.6 oz pur e alcohol) Feeling Safe Answer Date Recorded Are you in a relationship wi th someone who hurts you emotionally and/or physically? 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 Gender Identity Not on file Sexual Orientation Not on file Last Filed Vital Signs Vital Sign Reading Time Taken Comments Blood Pressure 104/60 01/04/2025 2:00 PM CDT Pulse 87 11/17/2024 12:15 PM CDT Temperature 37 C (98.6 F) 11/17/2024 11:50 AM CDT Respiratory Rate 17 11/17/2024 11:50 AM CDT Oxygen Saturation 94% 11/17/2024 12:15 PM CDT Inhaled Oxygen Concentration - - Weight 104.3 kg (230 lb) 01/04/2025 2:00 PM CDT Height 175.3 cm (5' 9 ) 01/04/2025 2:00 PM CDT Body Mass Index 33.97 01/04/2025 2:00 PM CDT Plan of Treatment Health Maintenance Due Date Last Done Comments DIABETES ANNUAL FOOT EXAM 09/02/1989 DIABETES MICROALBUMIN ANNUAL SCREEN 09/02/1989 LDL CHOLESTEROL ANNUAL 09/02/1989 FIT-DNA Q 3 years 09/02/2016 FIT/FOBT Q 1 year 09/02/2016 Flex Sig/CT Colonography Q 5 years 09/02/2016 DIABETES ANNUAL RETINAL EXAM 08/25/2018, 07/07/2016, 07/01/2015, Additional history exists HEPATITIS B VACCINES (2 of 3 - Hep B Twinrix 3-dose series) 01/18/2023 12/21/2022 INFLUENZA VACCINE (#1) 2025 , 03/23/2023, 07/22/2022, Additional history exists COVID-19 Vaccine (3 - 2024-2 6 season) 2025 01/16/2021, 12/19/2020 DIABETES HBA1C Q 6 MONTHS 06/29/20252024, 04/19/2024, 07/16/2023, Additional history exists COLORECTAL SCREENING 12/23/2028 12/23/2018, 12/24/19 19 Colorectal Cancer Screening 12/23/2028 DTAP/TDAP/TD VACCINES (2 - T d or Tdap) 04/16/2033 04/16/2023 ZOSTER VACCINE Completed 11/20/2022, 09/21/2022 Medical Devices Implanted Type Area Anatomy Teacher Device Identifier Shelf Expiration Date Model / Serial / Lot Log [id number] - Tissue Substitutes & Biologicals - 1 - Duragen Plus [id number] Implanted:Qty: 1 on 04/17/2011 Biological Spine Lumbar [employer] 02/04/2014 [id number] / N/A / [id number] Anulex Implanted:Qty: 1 on 04/17/2011 N/A: Spine Lumbar [employer] 01/05/2015 [id number] / / [id number] Procedures Procedure Name Priority Date/Time Associated Diagnosis Comments HEMOGLOBIN A1C Routine 05/19/2018 3:38 PM SILVER PLATER from Last 3 Months or Most Recently Relevant to Health Maintenance Results * (ABNORMAL) HEMOGLOBIN A1C (05/19/2018 3:38 PM SILVER PLATER) HEMOGLOBIN A1C 9.8(H) 4.0 - 6.0 % 05/19/2018 4:14 PM SILVER PLATER [facility] [place] EST. AVG GLUCOSE, A1C 235 mg/dL 05/19/2018 4:14 PM SILVER PLATER [facility] [place] Blood Venipuncture / Unknown 05/19/2018 3:38 PM SILVER PLATER 05/19/2018 3:38 PM SILVER PLATER Narrative [facility] [place] - 05/19/2018 4:14 PM SILVER PLATER HGB A1C INTERPRETATION NORMAL: <5.7% PRE-DIABETES: 5.7 - 6.4% DIABETES: 6.5% OR GREATER Falsely low A1C measurements can occur when: 1. Anemia and/or hemolytic anemia is present. 2. Hemoglobin variants present. 3. Renal failure. 4. Transfusion of blood product in the last 120 days. We recommend ordering a fructosamine test([id number]) to more accurately assess glycemic status if any of the above conditions are present. Ashlyn Gooden MD CHEMISTRY ORDERABLES Final Result [facility] CLIA# [id number] [address] [place] [id number] [place] [address] [id number] [address] [place] [phone] from Last 3 Months or Most Recently Relevant to Health Maintenance Insurance [address] [place] [address] MEDICAID [facility] DUAL COMPLETE HMO DSNP [facility] [address] [address] [place] [address] RX [employer] RX Member Subscriber Plan / Payer (Ef fective 2024-Present) Name:Berkley Cruzrachel Jeong Relation to Subscriber:Not on file Name:Cruz Farshad Jeong Subscriber ID:Not on file Date of :1970 Payer ID:Not on file Group ID:[id number] Type:RX Medicare Part D Address: [place] Advance Directives For more information, please contact: [phone] * Full Code (Latest Code Status on File) Date Activated Date Inactivated Comments 11/17/2024 8:33 AM 11/17/2024 2:42 PM Care Teams Enterprise Account Manager Relationship Specialty Start Date End Date Cyrus Covarrubias MD [address] [place] [address] [id number] PCP - General 06/06/09
--- OUTSIDE RECORDS SUMMARY | 2025-02-25 19:54 | XMS_ITS | Patient Health Record ---
Author Organization [facility] Address [address] [place] [address] Care Team Providers Care Linesperson Name Role Phone Cyrus Covarrubias Primary Care Provider Valdez Alfonso Unavailable [phone] Migration, Provider Unavailable Unavailable Allergies Allergen (clinical drug ingredient) Drug/Non Drug Allergy documented on EMR Reaction Allergy Type Onset Date Status sulfamethoxazole / trimethoprim Bactrim rash Drug Allergy Active Results Component Value Reference Range Flag Notes Schedule Confirmation (Not y et reviewed by provider) Interpretation: Performing Lab: Notes/Report: MRI Lumbar Spine w/o Cont [facility] MRI Lumbar Spine w/o Con [id number] Reviewed date:01/31/2025 09:28:59 AM Interpretation: Performing Lab: Notes/Report: See Below For Report MRI Lumbar Spine w/o Cont [facility] 01/03/2025 12:43:27 PM CDT > NO PA Required Ref# [id number] Read See Below For Report MRI Lumbar Spine w/o [id number] Reviewed date:01/31/2025 09:29:07 AM Interpretation: Performing Lab: Notes/Report: rkj=[id number]&org=iSite Tox Results Reviewed date:02/07/2025 03:52:57 PM Interpretation: Performing Lab: Notes/Report: Urine Confirmation Panel (in strument) - [id number] Reviewed date:02/07/2025 03:49:08 PM Interpretation: Performing Lab: [...] the U.S. Food and Drug Administration. Gabapentin >95750 <225 ng/mL > This test was developed [...] by the U.S. Food and Drug Administration. Urine Drug Screen (cup read) - 35635 Reviewed date:01/31/2025 10:39:03 AM Interpretation: Performing Lab: Notes/Report: OPI + Schedule Confirmation (Not y et reviewed by provider) Interpretation: Performing Lab: Notes/Report: MRI Lumbar Spine w/o Cont Reason For Referral Reason eval and treat Diagnosis 1 Intervertebral disc disorders with radiculopathy, lumbar region (M51.16) Diagnosis 2 Postlaminectomy synd robert, not elsewhere classified (M96.1) Diagnosis 3 Spondylosis without myelopathy or radiculopathy, lumbar region (M47.816) Referring Provider First Name Adriel Referring Provider Last Name Guerrero Referring Provider Speciality Pain Medic ine Referred Organization [facility] Referred Provider Juan Manuel Grossman Referred Address [address] [facility],[place],[address], Referred Provider Specialty Pain Medicin e General Notes Sandra Pham 02/2025 09:43:51 AM >Insurance is HMO [facility] 10/18/2024 01:49:45 PM >ATC and call is not going through., Lluvia Bishop 10/25/2024 08:54:01 AM >pt called, I explained that his ins is oon with us, he is calling his insPaul Amie 11/01/2024 11:39:50 AM >appt has been made and patient has NPPW Referral Priority Routine Medications Medication SIG (Take, Route, Frequency, Duration) Notes Start Date End Date Status Tourakel SoloStar 300 UNIT/ML Solution Pen-injector as directed Subcutaneous Active Nortriptyline HCl 10 MG Capsule 1 capsule at bedtime Orally Once a day Active Topiramate 100 MG Tablet TAKE 1 TABLET BY MOUTH DAILY; Duration: 90 Active Ozempic (0.25 or 0.5 MG/DOSE) 2 MG/3ML Solution Pen-injector as directed Subcutaneous Active tiZANidine HCl 4 MG Tablet 1 tablet at bedtime as needed Orally Once a day Active HYDROcodone-Acetaminoph en 5-325 MG Tablet 1 tablet as needed Orally every 8 hours; Duration: 30 days As needed Not to exceed 3 per day Fill 02/01/2025 01/31/2025 03/03/2025 Active Meloxicam 15 MG Tablet 1 tablet Orally O nce a day Active metFORMIN HCl 1000 MG Tablet 1 tablet with a meal Orally Once a day Active Metoclopramide HCl [...] 10 MG Tablet as directed Orally Active Cetirizine HCl 10 MG Tablet 1 tablet Orally Once a day Active Esomeprazole Magnesium 40 MG Capsule Delayed Release 1 capsule 1/2 to 1 hour before morning meal Orally Once a day Active Farxiga 10 MG Tablet 1 tablet Orally Onc e a day Active Gabapentin 600 MG Tablet 1 tablet Orally Once a day Active Ativan 1 MG Tablet 1 tablet Orally twice a day; Duration: 1 days One tablet 1 hour before and 1 tablet right before MRI Fill 01/19/2025 01/17/2025 Active Atorvastatin Calcium 80 MG Tablet 1 tablet Orally Once a day Active Social History Tobacco Use: Social History [...] Disability Drugs/Alcohol: Do you drink alcohol? No Problems Problem Type SNOMED Code ICD Code Onset Dates Problem Status W/U Status Risk Notes Problem Chronic pain syndrome (478622439) Chronic pain syndrome (G89.4) Active confirmed Problem Lumbosacral spondylosis without myelopathy (32066191) Spondylosis without myelopathy or radiculopathy, lumbar region (M47.816) Active confirmed Problem Radiculopathy due to lumbar intervertebral disc disorder (423882883917493) Intervertebral disc disorders with radiculopathy, lumbar region (M51.16) Active confirmed Problem Post-laminectomy syndrome (70386967) Postlaminectomy syndrome, not elsewhere classified (M96.1) Active confirmed Problem History of calculus of kidney (880378922) History of kidney stones (Z87.442) Active confirmed Problem Post-laminectomy syndrome (87772505) 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) Active confirmed Problem Abnormal gait (58417584) Abnormality of gait and mobility (R26.9) Active confirmed Vital Signs Height-cm 175.26 cm 01/31/2025 Weight-kg 100.7 kg 01/31/2025 Height 69 in 01/31/2025 Weight 222 lbs 01/31/2025 BMI 32.78 kg/m2 01/31/2025 Encounters Encounter Location Date Provider Diagnosis [facility] [address] [address] 01/31/2025 Valdez Shaffer Chronic pain syndrom e G89.4 ; Failed back syndrome of lumbar spine M96.1 ; Intervertebral disc disorders with radiculopathy, lumbar region M51.16 ; Spondylosis without myelopathy or radiculopathy, lumbar region M47.816 ; Abnormality of gait and mobility R26.9 and superintendent container terminal (current) use of opiate analgesic Z79.891 [facility] [address] [address] 01/03/2025 Valdez Shaffer Chronic pain syndrom e G89.4 ; Abnormality of gait and mobility R26.9 ; Failed back syndrome of lumbar spine M96.1 ; Intervertebral disc disorders with radiculopathy, lumbar region M51.16 ; Spondylosis without myelopathy or radiculopathy, lumbar region M47.816 and superintendent container terminal (current) use of opiate analgesic Z79.891 [facility]ility 0 0 04/01/2024 Provider Migration [facility] 0 0 04/02/2024 Provider Migration [facility] [address] [place] [address], [place] [address] 01/17/2025 Valdez Shaffer Spondylosis without myelopathy or radiculopathy, lumbar region M47.816 Assessments Encounter Date Diagnosis (ICD Code) Assessment Notes Treatment Notes Treatment Clinical Notes Section Notes 01/03/2025 Chronic pain syndrome (ICD-10 - G89.4) I had a nice visit with the pt today regarding his chronic pain issues. 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 We discussed treatment options. At this point, I would like to see updated imaging. So we'll order a new lumbar MRI. He has done a number of interventions, but I'm unsure of exactly when the spinal cord stimulator trial was. We could explore this moving forward, but we'll see what his imaging looks like and proceed accordingly. We'll provide continued hydrocodone for him. We'll see him back in about a month. 01/03/2025 Abnormality of gait and mobility (ICD-10 - R26.9) 01/31/2025 Chronic pain syndrome (ICD-10 - G89.4) [...] with radiculopathy, lumbar region (ICD-10 - M51.16) 01/03/2025 Failed back syndrome of lumbar spine (ICD-10 - M96.1) 01/17/2025 Spondylosis without myelopathy or radiculopathy, lumbar region (ICD-10 - M47.816) 01/03/2025 Intervertebral disc disorders with radiculopathy, lumbar region (ICD-10 - M51.16) 01/31/2025 Spondylosis without myelopathy or radiculopathy, lumbar region (ICD-10 - M47.816) 01/31/2025 Abnormality of gait and mobility (ICD-10 - R26.9) 01/03/2025 Spondylosis without myelopathy or radiculopathy, lumbar region (ICD-10 - M47.816) 01/03/2025 jail (current) use of opiate analgesic (ICD-10 - Z79.891) 01/31/2025 jail (current) use of opiate analgesic (ICD-10 - Z79.891) 01/31/2025 Other Maddy Bell, mario scribing for Dr. Valdez Shaffer. I, Dr. Valdez Shaffer, personally performed the services described in this documentation, as scribed by Maddy José, and it is both accurate and complete. 01/03/2025 Maddy Jansen am scribing for Dr. Valdez Shaffer. I, Dr. Valdez Shaffer, personally performed the services described in this documentation, as scribed by Maddy José, and it is both accurate and complete. Plan Of Treatment Pending Test Test Name Order Date Schedule Confirmation 01/22/2025 Schedule Confirmation 01/22/2025 Future Test Test Name Order Date Implant Spinal Cord Stimulator Trial - 6 [id number] 02/01/2025 Insurance Providers Payer Name Payer Address Payer Phone Subscriber Number Group Number Insured Name Patient Relationship to Insured Coverage Start Date Coverage End Date [facility] [employer] [address] [address] [place] [address] [id number] Farshad Cruz Self - patient is the insured [place] Medicaid [address] [place] [address] [id number] Farshad Cruz Self - patient is the insured Medical (General) History Medical History History ICD Code High Blood Pressure Diabetes Heart Disease Surgical History Surgery Date(Month/Year) back surgery - Dr. Asif [address] Campbell back surgery - [facility]
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
--- NOTE | 2025-02-25 20:00 | USR_ITS ---
PROCEDURE INFORMATION: Exam: US Duplex Right Lower Extremity Arteries Or Arterial Bypass Grafts Exam date and time: 02/25/2025 8:56 PM Age: 54 years old Clinical indication: Pain; Leg, upper; Right; Additional info: Cool right thigh with pain, decreased pulse TECHNIQUE: Imaging protocol: Right Real-time duplex scan of the arteries or arterial bypass grafts of the right lower extremity with 2-D arrington scale, color Doppler flow and spectral waveform analysis. Images documented and saved. COMPARISON: CR (LOW EXM, ) 02/25/2025 8:06 PM FINDINGS: Right common femoral artery: No occlusion or significant stenosis. Normal waveform. No pseudoaneurysm in the inguinal region. Right superficial femoral artery: No occlusion or significant stenosis. Normal waveform. Right popliteal artery: No occlusion or significant stenosis. Normal waveform. Right calf/foot arteries: No occlusion or significant stenosis in the visualized arteries. Normal waveforms. Dorsalis pedis artery is patent. Soft tissues: No hematoma or collection. Other findings: FALGUNI was calculated to be 1.4 US/[place] [id number] IMPRESSION: No stenosis or occlusion.
--- NOTE | 2025-02-25 20:00 | XRR_ITS ---
PROCEDURE INFORMATION: Exam: XR Right Femur Exam date and time: 02/25/2025 8:06 PM Age: 54 years old Clinical indication: Pain; Thigh; Prior surgery; Surgery date: 6+ months; Surgery type: Right total hip TECHNIQUE: Imaging protocol: Radiologic exam of the right femur. Views: 2 views. COMPARISON: CR XR hip RT 2-3V wo/w pel* [id number] 02/19/2025 11:23 AM FINDINGS: Bones/joints: Right total hip arthroplasty. Soft tissues: Unremarkable. XR/XR femur RT min 2V* [id number] IMPRESSION: No acute findings.
--- NOTE | 2025-02-25 20:02 | W.ED.EXTPRO ---
HPI - Extremity Problem General: Chief complaint: Extremity Problem,Nontraumatic Stated complaint: rt Leg Pain Time Seen by Provider: 02/25/25 19:53 History of Present Illness: Patient is a 54-year-old gentleman with status post 3 years ago right THR, presents to ED with right thigh pain. Patient complains of worsening right thigh pain. This has been worsening over the last 1 week. He has numbness, pain in his right thigh. He does have remote smoking history and states once in a while. He does not have any chest discomfort, lower extremity pain. History of skin graft in this right thigh. Denies any edema, wounds on this right thigh. No issues in the hip area, more mid to distal thigh. No shortness of breath. Associated symptoms: Deny chest pain or fever(s) Related Data Home Medications ?Medication ?Instructions ?Recorded ?Confirmed aspirin 325 mg tablet 325 mg PO DAILY 11/29/19 02/13/25 cinnamon bark 500 mg capsule 1,000 mg PO BID 11/29/19 02/13/25 (Cinnamon) esomeprazole magnesium 40 mg 40 mg PO BID 11/29/19 02/13/25 capsule,delayed release (Nexium) fluticasone propionate 50 1 spray intranasal DAILY 11/29/19 02/13/25 mcg/actuation nasal spray,suspension (Flonase Allergy Relief) lisinopril 20 1 tab PO DAILY 11/29/19 02/13/25 mg-hydrochlorothiazide 25 mg tablet metformin 1,000 mg tablet 1,000 mg PO BID 11/29/19 02/13/25 metoprolol succinate 50 mg 25 mg PO DAILY 11/29/19 02/13/25 tablet,extended release 24 hr nortriptyline 10 mg capsule 20 mg PO BEDTIME 11/29/19 02/13/25 semaglutide 1 mg/dose (2 mg/1.5 See Rx Instructions .Route .COMPLEX 11/29/19 02/13/25 mL) subcutaneous pen injector (Ozempic) B-complex with vitamin C (Super B 1 tab PO DAILY 06/13/20 02/13/25 Complex-Vitamin C tablet) ascorbic acid (vitamin C) 1,000 mg 500 mg PO DAILY 06/13/20 02/13/25 tablet melatonin 10 mg capsule 10 mg PO QPM 12/12/20 02/13/25 dapagliflozin propanediol 10 mg 10 mg PO DAILY 03/09/22 02/13/25 tablet (Farxiga) vitamin A-vitamin C-vit E-min 1 tab PO DAILY 03/09/22 02/13/25 tablet duloxetine 30 mg capsule,delayed 60 mg PO DAILY neuropathy 02/24/23 02/13/25 release (Cymbalta) insulin glargine U-300 conc 300 54 unit SUBCUT DAILY 08/17/23 02/13/25 unit/mL (1.5 mL) subcutaneous pen (Toujeo SoloStar U-300 Insulin) lisinopril 10 mg tablet 10 mg PO DAILY 08/17/23 02/13/25 Previous Rx's ?Medication ?Instructions ?Recorded nitroglycerin 0.4 mg sublingual 0.4 mg sublingual Q5M PRN chest 01/05/22 tablet pain #25 tabs gabapentin 600 mg tablet 600 mg PO TID 30 days #90 tabs 10/14/22 tizanidine 2 mg capsule 4 mg (2 x 2 mg) PO BID PRN Pain 06/03/23 #60 caps topiramate 100 mg tablet 100 mg PO BID Chronic pain #60 tabs 09/27/23 hydrocodone 5 mg-acetaminophen 325 1 tab PO TID PRN pain 30 days #90 11/22/23 mg tablet tabs atorvastatin 80 mg tablet 80 mg PO DAILY #90 tabs 06/26/24 meloxicam 15 mg tablet 15 mg PO DAILY #90 tabs 09/22/24 metoclopramide HCl 5 mg tablet 5 mg PO DAILY 30 days #30 tabs 02/06/25 Allergies Allergy/AdvReac Type Severity Reaction Status Date / Time sulfamethoxazole (From Allergy Intermediate ALGY-Rash Verified 02/25/25 19:52 Bactrim) trimethoprim (From Bactrim) Allergy Intermediate ALGY-Rash Verified 02/25/25 19:52 Review of Systems General: Reports: 10 or more systems reviewed and unremarkable except in HPI and below Const: Denies: fever(s) or chills Card: Denies: chest pain, palpitations, irregular heart rhythm, swelling of feet/ankles, lightheadedness, pre-syncope, dyspnea on exertion, orthopnea or leg pain with exertion Resp: Denies: dyspnea, productive cough or non-productive cough GI: Denies: abdominal pain, nausea or vomiting : Denies: flank pain or difficulty urinating Musc: Reports: extremity pain; Denies: extremity swelling Neuro: Reports: sensory changes (right thigh) Psych: Denies: anxiety or depression PFS ED PFSH: Medical History (Updated 02/25/25 @ 21:28 by JEFFERY Fortune) Greater trochanteric bursitis of right hip Atherosclerosis of coronary artery Obesity HIRA (obstructive sleep apnea) HTN (hypertension) Diabetes Dyslipidemia Surgical History History of total right hip arthroplasty [facility] of Surgery: 03/23/2022. Surgeon: Dr. Huynh. Surgery: Right total hip arthroplasty. Previous back surgery total of 6 back surgeries S/P PTCA (percutaneous transluminal coronary angioplasty) Social History Smoking and tobacco/nicotine status: current every day tobacco/nicotine user smokeless tobacco Second hand smoke exposure: No Alcohol intake: never Substance/Drug Use: never Marital status: Single Physical Exam Const: COMMON NORMALS: no acute distress, average body habitus, patient oriented x3 and no limitations HENMT: COMMON NORMALS: normocephalic, atraumatic and hearing grossly normal bilaterally HEAD & SCALP: normocephalic and atraumatic Neck/C-Spine: COMMON NORMALS: full ROM and no lymphadenopathy Lymph: LYMPHATIC: no lymphadenopathy noted Chest: COMMONS NORMALS: normal inspection of the chest Resp: COMMON NORMALS: normal respiratory effort, No retractions and clear to auscultation bilaterally AUSCULTATION: clear to auscultation bilaterally Cardio: COMMON NORMALS: regular rate and regular rhythm RATE: regular rate RHYTHM: regular rhythm Extremity: COMMON NORMALS: normal to inspection, full ROM and capillary refill normal RIGHT LOWER EXTREMITY: Yes upper leg Right upper leg: Yes inspection (Previous skin graft, no edema as compared to left), Yes palpation (No notable pain. Coolness noted.) and Yes neurovascular exam (Pedal pulse faint on right) Neuro: COMMON NORMALS: patient oriented x3 Psych: COMMON NORMALS: mental status grossly normal, Normal thought process present and cooperative THOUGHT PROCESS: Normal thought process present Skin: COMMON NORMALS: no rashes or lesions noted and no wounds GENERAL SKIN EXAM: no rashes or lesions noted Course Vital Signs: Vital signs: Vital Signs Temperature 97.9 F 02/25/25 19:49 Pulse Rate 77 02/25/25 21:34 Respiratory Rate 18 02/25/25 21:34 Blood Pressure 103/61 02/25/25 21:34 Pulse Oximetry 95 02/25/25 21:34 Oxygen Delivery Me thod Room Air 02/25/25 20:14 MDM - Extremity (Nontraumatic) Medical Decision Making 54-year-old male with remote history of right hip replacement with mid to distal thigh pain. On exam there is coolness, pedal pulses faint. Will check x-ray, routine labs, and arterial scan with concern of ischemic issues. With differentials considered of DVT, this is less likely given there is no edema, or pain with dorsi flexion. No shortness of breath. Lab Data 02/25/25 20:17 02/25/25 20:17 Radiology Impressions Duplex Scan Lower Extremity Artery 02/25/25 20:00 IMPRESSION: No stenosis or occlusion. Femur X-Ray 02/25/25 20:00 IMPRESSION: No acute findings. Laboratory Results WBC 7.54 10^3/uL (3.29-11.43) 02/25/25 20:17 RBC 5.17 10^6/uL (3.85-5.65) 02/25/25 20:17 Hgb 14.90 g/dL (11.27-16.99) 02/25/25 20:17 Hct 44.4 % (37-53) 02/25/25 20:17 MCV 85.9 fl (82-101) 02/25/25 20:17 MCH 28.8 pg (27-33) 02/25/25 20:17 MCHC 33.6 g/dL (30-55) 02/25/25 20:17 RDW 13.1 % (12.1-15.1) 02/25/25 20:17 Plt Count 193 10^3/cmm (157-399) 02/25/25 20:17 MPV 11.0 fL (7.4-10.4) H 02/25/25 20:17 Neut % (Auto) 68.4 % 02/25/25 20:17 Lymph % (Auto) 19.8 % 02/25/25 20:17 Moca % (Auto) 6.6 % 02/25/25 20:17 Eos % (Auto) 4.0 % 02/25/25 20:17 Baso % (Auto) 0.8 % 02/25/25 20:17 Neut # (Auto) 5.16 10^3/uL (1.8-7.7) 02/25/25 20:17 Lymph # (Auto) 1.5 10^3/uL (0.8-4.8) 02/25/25 20:17 Moca # (Auto) 0.5 10^3/uL (0.2-0.9) 02/25/25 20:17 Eos # (Auto) 0.3 10^3/uL (0.0-0.8) 02/25/25 20:17 Baso # (Auto) 0.1 10^3/uL (0.0-0.1) 02/25/25 20:17 Nucleated RBC % (auto) 0 % 02/25/25 20:17 Nucleated RBCs # 0.0 /100WBC 02/25/25 20:17 Sodium 137 mmol/L (136-145) 02/25/25 20:17 Potassium 4.2 mmol/L (3.5-5.1) 02/25/25 20:17 Chloride 98 mmol/L (98-107) 02/25/25 20:17 Carbon Dioxide 23 mmol/L (22-29) 02/25/25 20:17 Anion Gap 20.2 (5-19) H 02/25/25 20:17 BUN 17 mg/dL (6-20) 02/25/25 20:17 Creatinine 0.8 mg/dL (0.7-1.2) 02/25/25 20:17 GFR Calculation 101.1 mL/min (90-130) 02/25/25 20:17 Glucose 338 mg/dL (65-115) H 02/25/25 20:17 Calculated Osmolality 299 mOsm/kg (285-295) H 02/25/25 20:17 Calcium 9.9 mg/dL (8.5-10.5) 02/25/25 20:17 Total Bilirubin 0.4 mg/dL (0.15-1.2) 02/25/25 20:17 AST 17 U/L (0-40) 02/25/25 20:17 ALT 44 U/L (0-41) H 02/25/25 20:17 Alkaline Phosphatase 83 U/L (40-130) 02/25/25 20:17 Total Protein 7.0 g/dL (6.6-8.7) 02/25/25 20:17 Albumin 4.6 g/dL (3.5-5.2) 02/25/25 20:17 Globulin 2.4 g/dL (1.3-4.6) 02/25/25 20:17 XR interpretation done by ED provider, pending radiology final review ED provider radiology interpretation(s): Biphasic flow of right thigh, leg, FALGUNI 1.4 Discharge Plan Discharge Patient Disposition: Home Clinical Impression: Numbness of right anterior thigh Condition: Stable Prescriptions: No Action Ozempic 1 mg/dose (2 mg/1.5 mL) pen injector See Rx Instructions .ROUTE .COMPLEX Rx Instructions: 2 mg subcutaneously WEEKLY on wednesday metoprolol succinate 50 mg tablet extended release 24 hr 25 mg PO DAILY fluticasone propionate [Flonase Allergy Relief] 50 mcg/actuation spray,suspension 1 spray INTRANASAL DAILY Rx Instructions: administer into each nostril esomeprazole magnesium [Nexium] 40 mg capsule,delayed release(DR/EC) 40 mg PO BID cinnamon bark [Cinnamon] 500 mg capsule 1,000 mg PO BID metformin 1,000 mg tablet 1,000 mg PO BID nortriptyline 10 mg capsule 20 mg PO BEDTIME lisinopril-hydrochlorothiazide 20-25 mg tablet 1 tab PO DAILY aspirin 325 mg tablet 325 mg PO DAILY B-complex with vitamin C [Super B Complex-Vitamin C] Tablet 1 tab PO DAILY ascorbic acid (vitamin C) 1,000 mg tablet 500 mg PO DAILY Jenelle Dhillon U-300 Insulin 300 unit/mL (1.5 mL) insulin pen 54 unit SUBCUT DAILY melatonin 10 mg capsule 10 mg PO QPM nitroglycerin 0.4 mg tablet, sublingual 0.4 mg sublingual Q5M PRN (Reason: chest pain) Qty: 25 2RF Rx Instructions: do not exceed 3 doses per episode gabapentin 600 mg tablet 600 mg PO TID 30 Days Qty: 90 0RF lisinopril 10 mg tablet 10 mg PO DAILY topiramate 100 mg tablet 100 mg PO BID Qty: 60 3RF hydrocodone-acetaminophen 5-325 mg tablet 1 tab PO TID PRN (Reason: pain) 30 Days Qty: 90 0RF meloxicam 15 mg tablet 15 mg PO DAILY Qty: 90 1RF metoclopramide HCl 5 mg tablet 5 mg PO DAILY 30 Days Qty: 30 11RF tizanidine 2 mg capsule 4 mg PO BID PRN (Reason: Pain) Qty: 60 0RF atorvastatin 80 mg tablet 80 mg PO DAILY Qty: 90 3RF vitamin A-vitamin C-vit E-min Tablet 1 tab PO DAILY dapagliflozin propanediol [Farxiga] 10 mg tablet 10 mg PO DAILY duloxetine [Cymbalta] 30 mg capsule,delayed release(DR/EC) 60 mg PO DAILY Discharge Orders: Discharge ED (Routine); Ordered 02/25/25 Ordered By: Natalia Bright Referrals: Cyrus Covarrubias MD [Primary Care Provider, [facility]] Discharge Diet: Diabetic Discharge Activity: Resume usual activity Patient Instructions: Paresthesia (ED), Patient Portal & Cassandra Instructions Activity Restrictions/Additional Instructions: - Your initial workup did not show any additional concern - You will need to follow-up with your primary care physician regarding today's visit -Take all your medication as directed. Your blood glucose is over 300 -Return to ED if pain develops, or worsening numbness. Print Language: Serbian Coding Level of Care Code ED Under[employer] Maker for Rupa Reinoso
[2025-02-25 20:14] VITALS: BP 114/80; O2SAT 94
[2025-02-25 20:22] LABS: Hematocrit 44.4 % (37-53); Hemoglobin 14.90 g/dL (11.27-16.99); Mean Corpuscular HGB Conc 33.6 g/dL (30-55); Mean Corpuscular Hemoglobin 28.8 pg (27-33); Mean Corpuscular Volume 85.9 fl (82-101); Nucleated Red Blood Cells % 0 %; Platelet Count 193 10^3/cmm (157-399); Red Blood Count 5.17 10^6/uL (3.85-5.65); White Blood Count 7.54 10^3/uL (3.29-11.43)
[2025-02-25 20:48] LABS: Alanine Aminotransferase 44 U/L (0-41); Albumin Level 4.6 g/dL (3.5-5.2); Alkaline Phosphatase 83 U/L (40-130); Anion Gap 20.2 (5-19); Aspartate Amino Transferase 17 U/L (0-40); Blood Urea Nitrogen 17 mg/dL (6-20); Calcium 9.9 mg/dL (8.5-10.5); Carbon Dioxide 23 mmol/L (22-29); Chloride 98 mmol/L (98-107); Creatinine Clr Calc Pharmacy 125.4582; Globulin 2.4 g/dL (1.3-4.6); Glucose 338 mg/dL (65-115); Osmolality Calculated 299 mOsm/kg (285-295); Potassium 4.2 mmol/L (3.5-5.1); Sodium 137 mmol/L (136-145); Total Protein 7.0 g/dL (6.6-8.7)
[2025-02-25 21:34] VITALS: BP 103/61; PULSE 77; RESP 18; O2SAT 95
== END 2025-02-25 21:35 | disposition home or self-care (01) ==
PROVIDERS: Emergency Provider Physician Assistant; PCP Family Medicine
DX: R20.0 Anesthesia of skin (principal); Z96.641 Presence of right artificial hip joint
CPT/HCPCS: 36415; 73552; 80053; 85025; 93926; 99284

== ENCOUNTER 2025-03-07 13:38 | Outpatient (CLI) | payer OTHER, MEDICAID, SELFPAY ==
--- NOTE | 2025-03-07 13:46 | MR_ITS ---
WS: [id number] EXAMINATION: MR hip RT wo con* [id number] ORDER DATE: 03/07/2025 1:51 PM COMPARISON: None. HISTORY: right hip pain CONTRAST: None. TECHNIQUE: Coronal STIR of the Pelvis. Coronal proton density, coronal T1, axial T2 fat sat, axial T1, sagittal T2 fat sat, and sagittal T1 performed of the hip. FINDINGS: Susceptibility artifact from RIGHT RENE degrades imaging. Susceptibility artifact in the lower lumbar spine from prior surgery. Normal bone marrow signal in the visualized RIGHT femur and acetabulum. No significant joint effusion. Normal bone marrow signal in the RIGHT ilium and pubic rami. Mild degenerative arthritis of the pubic symphysis. Few sigmoid diverticuli. Sigmoid constipation. No inguinal lymphadenopathy. Normal bone marrow signal in the bony pelvis and sacrum. No insufficiency fractures. Moderate degenerative arthritis sacroiliac joints. Moderate to advanced degenerative narrowing LEFT hip with subchondral cystic change in the femoral head and acetabulum. Hypertrophic changes along the femoral neck. No significant edema. MR/MR hip RT wo con* [id number] IMPRESSION: Susceptibility artifact from RIGHT RENE degrades imaging 1. Normal bone marrow signal in the visualized RIGHT femur and acetabulum. No significant joint effusion. 2. Moderate to advanced degenerative arthritis LEFT hip 3. Normal bone marrow signal in the bony pelvis and sacrum. No insufficiency f ractures.
== END 2025-03-07 13:39 | disposition home or self-care (01) ==
LOC: RAD 13:40
PROVIDERS: PCP Family Medicine; Visit Provider Nurse Practitioner Family
DX: M16.11 Unilateral primary osteoarthritis, right hip (principal); M70.61 Trochanteric bursitis, right hip; Z96.641 Presence of right artificial hip joint
CPT/HCPCS: 73721

== ENCOUNTER → 2025-04-09 08:54 | Outpatient (BNVA) | payer OTHER, MEDICAID, SELFPAY | PROVIDERS: PCP Family Medicine; Visit Provider Nurse Practitioner | DX: R20.8 Other disturbances of skin sensation (principal); Z98.890 Other specified postprocedural states; Z96.641 Presence of right artificial hip joint | CPT/HCPCS: 99215 ==

== ENCOUNTER → 2025-04-19 07:59 | Outpatient (BNVA) | payer OTHER, MEDICAID, SELFPAY | PROVIDERS: PCP Family Medicine; Visit Provider Orthopaedic Surgery | DX: M54.9 Dorsalgia, unspecified (principal); Z98.890 Other specified postprocedural states | CPT/HCPCS: 72110; 99213 ==